=== PATIENT | male | born 1960 | race Caucasian/White ===

== ENCOUNTER 2019-12-13 07:16 | Day surgery (SDC) | payer OTHER, SELFPAY ==
[2019-12-13 08:16] LABS: Glucose Point of Care 159 (65-105)
== END 2019-12-13 09:48 | disposition home or self-care (01) ==
PROVIDERS: Visit Provider Surgery
DX: Z12.11 Encounter for screening for malignant neoplasm of colon (principal); D12.8 Benign neoplasm of rectum
CPT/HCPCS: 45380; 812; 88305; J2704; J7120

== ENCOUNTER 2020-08-25 09:43 | Outpatient (CLI) | payer OTHER, SELFPAY ==
--- NOTE | ~2020-08-25 | XR_ITS ---
XR lumbar spine 2-3V DATE: 08/25/2020 10:20 INDICATION: Low back pain for years. No known injury TECHNIQUE: AP, lateral, coned lateral lumbosacral views COMPARISON: 03/20/2018 lumbar spine FINDINGS: There is minimal dextroscoliosis of the lumbar spine. There is chronic mild anterior wedge compression fracture deformity of T12, also present on 03/20/2018 . There is severe degenerative disc disease at T12-L1, mildly severe degenerative disc disease at L1- 2, L2-3, mild degenerative disc disease at L3-4, severe degenerative disease at L4-5 and moderate deg enerative disc disease at L5-S1. No fracture or bone destruction is evident. The lumbar pedicles are intact. The sacroiliac joints dinorah ear normal. Severe osteoarthritic change at the right hip with prominent cystic changes of the femoral head and a cetabulum. IMPRESSION: Multilevel degenerative disc disease, most pronounced at L4-5, increased in severity sinc e 03/20/2018 Chronic compression fracture deformity of T12 Severe osteoarthritic change at the right hip joint Reviewed, dictated and finalized at location B. IMPRESSION: Multilevel degenerative disc disease, most pronounced at L4-5, incr eased in severity since 03/20/2018 Chronic compression fracture deformity of T12 Severe osteoarthritic change at the right hip joint
--- NOTE | ~2020-08-25 | XR_ITS ---
EXAMINATION: XR hip RT min 2V DATE: 08/25/2020 10:20 INDICATION: Right hip pain. TECHNIQUE: 3 views of right hip were obtained. COMPARISON: Right hip radiographs 03/20/2018 FINDINGS: Bone alignment is normal. No fracture. There is severe right hip osteoarthritis. There is a loose body in the right hip joint. IMPRESSION: 1. Severe right hip osteoarthritis. 2. Right hip joint loose body. Reviewed, dictated and finalized at location A.
[2020-08-25 09:57] LABS: Basophils Absolute Auto 0.01 K/mm3 (0.00-0.10); Basophils Percent Auto 0.2 % (0.0-1.0); Eosinophils Absolute Auto 0.09 K/mm3 (0.02-0.50); Eosinophils Percent Auto 1.5 % (1.0-6.0); Hemoglobin 15.3 g/dL (14.0-18.0); Immature Granulocyte Absolute 0.02 K/mm3 (0.00-0.00); Immature Granulocyte Percent A 0.3 % (0.0-0.0); Lymphocytes Percent Auto 25.9 % (18.0-42.0); Mean Corpuscular HGB Conc 34.8 g/dL (32.0-36.0); Mean Corpuscular Volume 94.8 fL (78.0-102.0); Monocytes Percent Auto 3.2 % (2.0-11.0); Neutrophils Absolute Auto 4.3 K/mm3 (1.7-7.2); Neutrophils Percent Auto 68.9 % (50.0-70.0); Platelet Count Result 240 K/mm3 (150-420); Red Blood Count 4.64 M/mm3 (4.70-6.10); Red Cell Distribution Width 12.9 % (11.6-14.4); White Blood Count 6.2 K/mm3 (4.8-10.8)
[2020-08-25 10:13] LABS: Hemoglobin A1C 5.8 % (<5.7)
[2020-08-25 11:01] LABS: Alanine Aminotransferase 17 U/L (16-63); Albumin Level 4.4 g/dL (3.4-5.0); Alkaline Phosphatase 84 U/L (46-116); Anion Gap 6 mmol/L (8-16); Aspartate Amino Transferase < 10 U/L (15-37); Bilirubin,Total 0.8 mg/dL (0.00-1.00); Blood Urea Nitrogen 10 mg/dL (7-18); Calcium 9.4 mg/dL (8.5-10.1); Carbon Dioxide 30 mmol/L (21-32); Chloride 101 mmol/L (98-108); Cholesterol 119 mg/dL (0-200); Estimated Glomerular Filt Rate > 60; Glucose 128 mg/dL (70-99); HDL Direct 58 mg/dL (40-60); LDL Cholesterol Calculated 49 mg/dL (<130); Osmolality Calculated 285 mOsm/kg (285-295); Potassium 4.5 mmol/L (3.5-5.1); Sodium 137 mmol/L (136-145); Total Protein 7.8 g/dL (6.4-8.2); Triglycerides 61 mg/dL (0-150)
== END 2020-08-25 09:44 | disposition home or self-care (01) ==
PROVIDERS: PCP Nurse Practitioner Family; Visit Provider Nurse Practitioner Family
DX: M25.551 Pain in right hip (principal); G89.29 Other chronic pain; M54.5 Low back pain; I10 Essential (primary) hypertension
CPT/HCPCS: 36415; 72100; 73502; 80053; 80061; 83036; 85025

== ENCOUNTER 2020-08-29 12:16 | Outpatient (CLI) | payer OTHER, SELFPAY ==
--- NOTE | ~2020-08-29 | CT_ITS ---
EXAMINATION:CT lung screening DATE: 08/29/2020 12:32 INDICATION: Personal history of tobacco dependence. Current smoker with 30 pack year history. TECHNIQUE: Computed tomography (CT) of the chest was performed without intravenous contrast. Automate d exposure control and iterative reconstruction technique were employed. The dose-length product (DLP ) was 169.59 mGy-cm. COMPARISON: Chest CT 10/30/2018 FINDINGS: There is mild emphysema. There are greater than 100 nodules scattered throughout the lungs bilaterally measuring up to 6 mm in right middle lobe. Most of the nodules are stable. The largest ne w nodule measures 4 mm. No pleural effusion. The heart size is normal. There are coronary artery calc ifications. No pericardial effusion. There is bilateral gynecomastia. There is a 2.3 cm mass in left adrenal gland measuring low-attenuation without change, consistent with an adenoma. There is severe t horacic spondylosis. IMPRESSION: 1. Lung-RADS category 3: Probably benign. Further evaluation is recommended with noncontrast low-dose chest CT in 6 months. Reviewed, dictated and finalized at location A. IMPRESSION: 1. Lung-RADS category 3: Probably benign. Further evaluation is recommended wit h noncontrast low-dose chest CT in 6 months.
== END 2020-08-29 12:17 | disposition home or self-care (01) ==
PROVIDERS: PCP Nurse Practitioner Family; Visit Provider Nurse Practitioner Family
DX: Z12.2 Encounter for screening for malignant neoplasm of respiratory organs (principal); Z87.891 Personal history of nicotine dependence
CPT/HCPCS: G0297

== ENCOUNTER 2021-02-19 10:38 | Outpatient (CLI) | payer OTHER, SELFPAY ==
[2021-02-19 11:03] LABS: Creatinine Urine 96.38 mg/dL (40-278); MALB Creatinine Ratio 13.4 mg/g (0-30); Microalbumin Urine Random < 13.0 mg/L
[2021-02-19 11:28] LABS: Alanine Aminotransferase 19 U/L (16-63); Albumin Level 4.1 g/dL (3.4-5.0); Alkaline Phosphatase 81 U/L (46-116); Anion Gap 9 mmol/L (8-16); Aspartate Amino Transferase < 10 U/L (15-37); Blood Urea Nitrogen 18 mg/dL (7-18); Carbon Dioxide 30 mmol/L (21-32); Chloride 97 mmol/L (98-108); Estimated Glomerular Filt Rate > 60; Glucose 125 mg/dL (70-99); Osmolality Calculated 284 mOsm/kg (285-295); Potassium 4.6 mmol/L (3.5-5.1); Sodium 136 mmol/L (136-145); Total Protein 7.5 g/dL (6.4-8.2)
[2021-02-19 11:36] LABS: Calcium 8.9 mg/dL (8.5-10.1)
== END 2021-02-19 10:39 | disposition home or self-care (01) ==
PROVIDERS: PCP Nurse Practitioner Family; Visit Provider Nurse Practitioner Family
DX: E11.9 Type 2 diabetes mellitus without complications (principal)
CPT/HCPCS: 36415; 80053; 82043; 83036

== ENCOUNTER 2021-09-14 11:10 | Outpatient (CLI) | payer OTHER, SELFPAY ==
--- NOTE | ~2021-09-14 | CT_ITS ---
EXAMINATION: CT lung screening DATE: 09/14/2021 13:44 INDICATION: History of tobacco dependence TECHNIQUE: Computed tomography (CT) of the chest was performed without intravenous contrast. The dose -length product was 149.82 mGy-cm. Automated exposure control and iterative reconstruction technique were employed. COMPARISON: CT dated 08/29/2020 FINDINGS: Heart size is normal. No significant pleural or pericardial effusion. No thoracic lymphaden opathy. There is gynecomastia. Stable 2.7 cm left adrenal adenoma. There is atherosclerosis. Innumera ble bilateral pulmonary nodules which measuring 6 mm or less, unchanged. No significant change from p rior study. There is mild emphysema. No pneumothorax. IMPRESSION: 1. Lung-RADS category 2: Benign appearance or behavior. Continue annual screening with noncontrast lo w-dose chest CT in 12 months. Reviewed, dictated and finalized at location B. IMPRESSION: 1. Lung-RADS category 2: Benign appearance or behavior. Continue annual screeni ng with noncontrast low-dose chest CT in 12 months.
== END 2021-09-14 11:11 | disposition home or self-care (01) ==
PROVIDERS: PCP Nurse Practitioner Family; Visit Provider Family Medicine
DX: Z12.2 Encounter for screening for malignant neoplasm of respiratory organs (principal); Z87.891 Personal history of nicotine dependence
CPT/HCPCS: 71271

== ENCOUNTER 2022-12-30 08:04 | Outpatient (CLI) | payer OTHER, SELFPAY ==
[2022-12-30 08:21] LABS: Basophils Absolute Auto 0.01 K/mm3 (0.00-0.10); Basophils Percent Auto 0.2 % (0.0-1.0); Eosinophils Absolute Auto 0.11 K/mm3 (0.02-0.50); Eosinophils Percent Auto 1.8 % (1.0-6.0); Hematocrit 44.1 % (40.0-54.0); Hemoglobin 15.5 g/dL (14.0-18.0); Immature Granulocyte Absolute 0.02 K/mm3 (0.00-0.00); Immature Granulocyte Percent A 0.3 % (0.0-0.0); Lymphocytes Absolute Auto 1.86 K/mm3 (1.10-4.50); Lymphocytes Percent Auto 30.1 % (18.0-42.0); Mean Corpuscular HGB Conc 35.1 g/dL (32.0-36.0); Mean Corpuscular Hemoglobin 33.2 pg (27.0-31.0); Mean Corpuscular Volume 94.4 fL (78.0-102.0); Mean Platelet Volume 9.4 fl (8.7-11.0); Monocytes Percent Auto 4.9 % (2.0-11.0); Neutrophils Absolute Auto 3.9 K/mm3 (1.7-7.2); Neutrophils Percent Auto 62.7 % (50.0-70.0); Platelet Count Result 235 K/mm3 (150-420); Red Blood Count 4.67 M/mm3 (4.70-6.10); Red Cell Distribution Width 12.3 % (11.6-14.4); White Blood Count 6.2 K/mm3 (4.8-10.8)
[2022-12-30 08:33] LABS: Hemoglobin A1C 5.9 % (<5.7)
[2022-12-30 08:57] LABS: Alanine Aminotransferase 19 U/L (16-63); Albumin Level 3.9 g/dL (3.4-5.0); Alkaline Phosphatase 81 U/L (46-116); Anion Gap 7 mmol/L (8-16); Aspartate Amino Transferase < 10 U/L (15-37); Blood Urea Nitrogen 15 mg/dL (7-18); Calcium 9.1 mg/dL (8.5-10.1); Carbon Dioxide 31 mmol/L (21-32); Chloride 99 mmol/L (98-108); Cholesterol 110 mg/dL (0-200); Estimated Glomerular Filt Rate > 60; Glucose 143 mg/dL (70-99); HDL Direct 65 mg/dL (40-60); LDL Cholesterol Calculated 40 mg/dL (<130); Osmolality Calculated 286 mOsm/kg (285-295); Potassium 4.4 mmol/L (3.5-5.1); Sodium 137 mmol/L (136-145); Total Protein 7.1 g/dL (6.4-8.2); Triglycerides 24 mg/dL (0-150)
== END 2022-12-30 08:05 | disposition home or self-care (01) ==
PROVIDERS: PCP Nurse Practitioner Family; Visit Provider Nurse Practitioner Family
DX: E78.5 Hyperlipidemia, unspecified (principal); I10 Essential (primary) hypertension; E11.9 Type 2 diabetes mellitus without complications
CPT/HCPCS: 36415; 80053; 80061; 83036; 85025

== ENCOUNTER 2023-06-20 10:22 | Outpatient (CLI) | payer OTHER, SELFPAY ==
--- NOTE | ~2023-06-20 | CT_ITS ---
CT Scan of the Chest without Contrast: Clinical Indication: Lung cancer screening, smoking history Technique: Contiguous sections were acquired throughout the chest without intravenous contrast. Dose reduction technique was used on this scan by utilizing automated exposure control and iterative recon struction technique. The dose-length product (DLP) was 162.56 mGy-cm. COMPARISON: 09/14/2021 Findings: There is no evidence of any significant mediastinal, hilar or axillary lymphadenopathy. Coronary stefanie ry calcifications are present. There is no evidence of pleural or pericardial effusion. There is mild emphysema with probable numerous tiny, peripheral pulmonary nodules present, stable fro m prior exam. Images through the upper abdomen reveal stable left adrenal adenoma. There are nondisplaced fractures of the posterolateral left 10th and 11th ribs. Impression: Lung RADS 2: Benign appearance. 12 month follow-up screening CT advised. Nondisplaced fractures of the posterolateral left 10th and 11th ribs. Reviewed, dictated and finalized at location . Impression: Lung RADS 2: Benign appearance. 12 month follow-up screening CT advised. Nondisplaced fractures of the posterolateral left 10th and 11th ribs.
== END 2023-06-20 10:23 | disposition home or self-care (01) ==
LOC: CHSIMG 10:23
PROVIDERS: PCP Nurse Practitioner Family; Visit Provider Nurse Practitioner Family
DX: R91.8 Other nonspecific abnormal finding of lung field (principal); S22.42XA Multiple fractures of ribs, left side, initial encounter for closed fracture; R07.81 Pleurodynia; Z87.891 Personal history of nicotine dependence
CPT/HCPCS: 71271

== ENCOUNTER 2023-07-15 22:47 | Emergency (ER) | payer OTHER, SELFPAY ==
--- NOTE | ~2023-07-15 | CT_ITS ---
EXAMINATION: CTA chest PE protocol DATE: 07/16/2023 00:22 INDICATION: Shortness of breath. TECHNIQUE: Computed tomography angiography (CTA) of the chest was performed with 100 mL Omnipaque-350 intravenous contrast timed to evaluate the pulmonary arteries. Coronal maximum intensity projection 3D-reconstructions were created by the technologist. Automated exposure control and iterative reconst ruction technique were employed. The dose-length product was 678.78 mGy-cm. COMPARISON: Chest CT 06/20/2023, 09/14/2021 FINDINGS: There is mild emphysema. There are innumerable chronic nodules in the lungs measuring up to 3 mm with a lower lung predominance, likely benign. No pleural effusion. The heart size is normal. N o pericardial effusion. There are coronary artery calcifications. There is no pulmonary embolus. Ther e is a chronic 2.5 cm mass in left adrenal gland measuring soft tissue attenuation, consistent with a n adenoma. There is diffuse osteopenia. Again seen are subacute fractures of left 9th and 10th ribs. There is severe cervical and thoracic spondylosis. There is mild chronic anterior wedging of multiple vertebral bodies. IMPRESSION: 1. No pulmonary embolus. 2. Mild emphysema. Reviewed, dictated and finalized at location A.
--- NOTE | ~2023-07-15 | XR_ITS ---
EXAMINATION: XR chest 2V Exam Date/Time: 07/15/2023 22:50 CDT HISTORY: dyspnea Comparison: None. RESULT: Lines, tubes, and devices: None. Lungs and pleura: Diffuse mild reticular opacities. Cardiomediastinal silhouette: Stable. Other: No acute osseous or upper abdominal finding. IMPRESSION: Mild interstitial edema. Reviewed, dictated and finalized at location K. IMPRESSION: Mild interstitial edema.
[2023-07-15 22:47] VITALS: BP 134/84; PULSE 84; RESP 16; TEMP 36.4; O2SAT 97
[2023-07-15 22:50] VITALS: O2SAT 95
--- NOTE | 2023-07-15 22:50 | ED.SOB ---
HPI - SOB/Dyspnea General Chief Complaint: Shortness of Breath/Dyspnea Stated Complaint: SOB Time Seen by Provider: 07/15/23 22:50 Source: patient, family and RN notes reviewed Mode of arrival: ambulatory Limitations: no limitations History of Present Illness MD elicited complaint: shortness of breath Onset (ago): week(s) (1) Timing: intermittent ( Got worse again the last hour) Severity: moderate Exacerbating factors: deep breaths Relieving factors: nothing Associated symptoms: other ( diaphoresis) Treatment prior to arrival: none Related Data Home oxygen amount: none Allergies Allergy/AdvReac Type Severity Reaction Status Date / Time No Known Allergies Allergy Verified 06/09/23 11:36 Review of Systems Review of Systems: All systems reviewed & are unremarkable except as noted in HPI and below Constitutional: Constitutional: Denies chills and Denies fever(s) Cardiovascular: Cardiovascular: Denies chest pain Respiratory: Respiratory: Denies cough and Denies wheezing Gastrointestinal: Gastrointestinal: Denies nausea and Denies vomiting PMFSH Past Medical History Medical History (Updated 07/16/23 @ 02:40 by Shaheen Brothers MD) DM2 (diabetes mellitus, type 2) Encounter for screening for depression Hypertension Nicotine dependence Overweight Surgical History Surgical History No history of previous surgery Family History Family History Mother Family history of type 2 diabetes mellitus Father , Age 45 CAD (coronary artery disease) Social History Social History Smoking packs per day: 1 Smoking cigarettes per day: 20.0 Years smoked: 30 Smoking pack-years: 30.00 Smoking status: Current every day smoker Tobacco type: cigarettes Concerned About Future Housing: Decline to Answer Difficulty Paying Gas/Electric Bills: Decline to Answer Difficulty Paying for Meds: Decline to Answer Currently Unemployed: Decline to Answer Education: Decline to Answer Living arrangements: with family Additional living arrangements comments: Exam Const: General: healthy appearing, no acute distress and alert Nutritional Appearance: well nourished Orientation/consciousness: patient oriented x3 Limitations: no limitations HENMT: Head: normal to inspection Ears: external ears normal Face/Nose/Sinus: Normal external nose present Face and sinus: normal facial exam Mouth: Yes moist mucous membranes Eyes: Conjunctivae: conjunctivae normal Pupils: Equal, round and reactive pupils present EOM: EOMs intact bilaterally Neck: Neck: normal visual inspection Resp: Effort & Inspection: normal respiratory effort Auscultation: clear to auscultation bilaterally Cardio: Rate: regular rate Rhythm: regular rhythm GI: GI Palp: Yes Soft to palpation and No Tenderness to palpation present (GI) Auscultation: normal bowel sounds Back/Spine/Pelvis: Cervical Spine: cervical ROM normal Thoracic/Lumbar Spine: thoraco-lumbar ROM normal Skin: General skin exam: normal color Rashes: no rashes Neuro: General: patient oriented x3, moves all extremities, no focal motor deficits and CN's II-XI intact bilaterally Speech: normal speech Gait exam (Neuro): Normal gait present Extrem: General: normal to inspection and no clubbing, cyanosis or edema Psych: Mental Status: mental status grossly normal Affect: normal affect Attitude: cooperative Course Course Emergency Course: patient given Solu-Medrol 125 mg IV. He is asked to follow up with his primary care physician for consultation with vascular surgery and Cardiology. Vital Signs Vital signs: Vital Signs Temperature 36.4 C 07/15/23 22:47 Pulse Rate 84 07/15/23 22:47 Respiratory Rate 16 07/15/23 22:47 Blood Pressure 134/84 07/15/23 22:47 Pulse Oximetry 97
--- NOTE | 2023-07-15 22:52 | ECG_ITS ---
Measurements Intervals Epsom Rate: 86 P: 31 DE: 151 QRS: -67 QRSD: 123 T: 30 QT: 384 QTc: 460 Interpretive Statements SINUS RHYTHM RIGHT BUNDLE BRANCH BLOCK [120+ ms QRS DURATION, UPRIGHT V1, 40+ ms S IN I/aVL/V4/V5/V6] LEFT ANTERIOR FASCICULAR BLOCK [QRS AXIS <= -45, QR IN I, RS IN II] ABNORMAL ECG NO PREVIOUS ECG AVAILABLE FOR COMPARISON Electronically Signed On 07-16-2023 7:38:33 CDT by Ryan Rhodes M.D.
[2023-07-15 23:15] LABS: Basophils Absolute Auto 0.01 K/mm3 (0.00-0.10); Basophils Percent Auto 0.1 % (0.0-1.0); Eosinophils Absolute Auto 0.14 K/mm3 (0.02-0.50); Hematocrit 38.5 % (40.0-54.0); Hemoglobin 13.7 g/dL (14.0-18.0); Immature Granulocyte Absolute 0.03 K/mm3 (0.00-0.00); Immature Granulocyte Percent A 0.4 % (0.0-0.0); Lymphocytes Absolute Auto 2.26 K/mm3 (1.10-4.50); Lymphocytes Percent Auto 31.7 % (18.0-42.0); Mean Corpuscular HGB Conc 35.6 g/dL (32.0-36.0); Mean Corpuscular Hemoglobin 33.7 pg (27.0-31.0); Mean Corpuscular Volume 94.8 fL (78.0-102.0); Mean Platelet Volume 9.2 fl (8.7-11.0); Monocytes Percent Auto 5.6 % (2.0-11.0); Neutrophils Absolute Auto 4.3 K/mm3 (1.7-7.2); Neutrophils Percent Auto 60.2 % (50.0-70.0); Platelet Count Result 236 K/mm3 (150-420); Red Blood Count 4.06 M/mm3 (4.70-6.10); Red Cell Distribution Width 12.5 % (11.6-14.4); White Blood Count 7.1 K/mm3 (4.8-10.8)
[2023-07-15 23:30] VITALS: BP 112/68; PULSE 80; RESP 18; O2SAT 96
[2023-07-15 23:32] LABS: Partial Thromboplastin Time 27.3 SEC (23.90-30.70); Prothrombin Time 11.3 Seconds (9.50-12.10)
[2023-07-15 23:36] LABS: D Dimer 0.92 mg/L (0.19-0.50)
[2023-07-15 23:40] LABS: Alanine Aminotransferase 11 U/L (16-63); Albumin Level 3.8 g/dL (3.4-5.0); Alkaline Phosphatase 97 U/L (46-116); Anion Gap 9 mmol/L (8-16); Bilirubin,Total 0.7 mg/dL (0.00-1.00); Blood Urea Nitrogen 19 mg/dL (7-18); Carbon Dioxide 29 mmol/L (21-32); Chloride 97 mmol/L (98-108); Estimated CRCL calculation 63 ml/min; Estimated Glomerular Filt Rate > 60; Glucose 218 mg/dL (70-99); Magnesium 1.8 mg/dL (1.8-2.4); NT Pro B Type Natriuretic Pept 226 pg/mL (0-125); Osmolality Calculated 289 mOsm/kg (285-295); Potassium 3.9 mmol/L (3.5-5.1); Sodium 135 mmol/L (136-145); Total Protein 7.1 g/dL (6.4-8.2); Troponin I 8.9 ng/L (0.00-60.4)
[2023-07-15 23:43] LABS: Aspartate Amino Transferase < 3 U/L (15-37)
--- NOTE | 2023-07-15 23:47 | PC.NURSE ---
POSITIVE D-DIME 0.92 PER LAB. PHYSICIAN MADE AWARE, ORDERS TO FOLLOW. CRM SPECIALIST UPDATED PT AND SPOUSE REGARDING RESULT AND PLAN OF CARE. PT AND SPOUSE VERBALIZED UNDERSTANDING.
--- NOTE | 2023-07-16 00:04 | PC.NURSE ---
PT TRANSPORTED TO IMAGING VIA [facility]RETCHER, ESCORTED BY ISRAEL EID
--- NOTE | 2023-07-16 00:17 | PC.NURSE ---
0017-PT RETURNS FROM IMAGING VIA HOSPITAL STRETCHER, ESCORTED BY SURVEYOR'S ASSISTANT.
[2023-07-16 00:32] VITALS: BP 110/64; PULSE 76; RESP 20; O2SAT 94
[2023-07-16 01:03] VITALS: BP 119/68; PULSE 74; RESP 16; O2SAT 96
[2023-07-16 01:32] VITALS: BP 113/75; PULSE 77; O2SAT 94
[2023-07-16 02:00] VITALS: BP 120/71; PULSE 72; RESP 16; O2SAT 97
[2023-07-16 02:37] VITALS: BP 130/77; PULSE 75; RESP 16; O2SAT 97
[2023-07-16] MEDS: methylPREDNISolone SOD SUCC 125 MG VIAL IV PUSH (02:50)
== END 2023-07-16 02:53 | disposition home or self-care (01) ==
PROVIDERS: Emergency Provider Emergency Medicine; PCP Nurse Practitioner Family
DX: J44.1 Chronic obstructive pulmonary disease with (acute) exacerbation (principal); I44.4 Left anterior fascicular block; I71.21 Aneurysm of the ascending aorta, without rupture; I10 Essential (primary) hypertension; E11.9 Type 2 diabetes mellitus without complications; F17.210 Nicotine dependence, cigarettes, uncomplicated; Z79.84 Long term (current) use of oral hypoglycemic drugs
CPT/HCPCS: 36415; 71046; 71275; 80053; 83735; 83880; 84484; 85025; 85380; 85610; 85730; 93005; 96374; 99284; J2930; Q9967

== ENCOUNTER 2023-08-12 07:25 | Outpatient (CLI) | payer OTHER, SELFPAY ==
[2023-08-12 08:12] LABS: Cholesterol 142 mg/dL (0-200); HDL Direct 73 mg/dL (40-60); LDL Cholesterol Calculated 58 mg/dL (<130); Triglycerides 56 mg/dL (0-150)
== END 2023-08-12 07:26 | disposition home or self-care (01) ==
LOC: CHSLAB 07:26
PROVIDERS: PCP Nurse Practitioner Family; Visit Provider Internal Medicine Cardiovascular Disease
DX: I10 Essential (primary) hypertension (principal)
CPT/HCPCS: 36415; 80061

== ENCOUNTER 2023-09-06 08:30 | Outpatient (CLI) | payer OTHER, SELFPAY ==
[2023-09-06 08:47] LABS: Basophils Absolute Auto 0.02 K/mm3 (0.00-0.10); Basophils Percent Auto 0.4 % (0.0-1.0); Eosinophils Absolute Auto 0.09 K/mm3 (0.02-0.50); Eosinophils Percent Auto 1.9 % (1.0-6.0); Hematocrit 38.2 % (40.0-54.0); Hemoglobin 13.8 g/dL (14.0-18.0); Immature Granulocyte Absolute 0.01 K/mm3 (0.00-0.00); Immature Granulocyte Percent A 0.2 % (0.0-0.0); Lymphocytes Absolute Auto 1.52 K/mm3 (1.10-4.50); Mean Corpuscular HGB Conc 36.1 g/dL (32.0-36.0); Mean Corpuscular Hemoglobin 34.5 pg (27.0-31.0); Mean Corpuscular Volume 95.5 fL (78.0-102.0); Mean Platelet Volume 9.4 fl (8.7-11.0); Monocytes Absolute Auto 0.21 K/mm3 (0.10-0.90); Monocytes Percent Auto 4.4 % (2.0-11.0); Neutrophils Absolute Auto 2.9 K/mm3 (1.7-7.2); Neutrophils Percent Auto 61.1 % (50.0-70.0); Platelet Count Result 228 K/mm3 (150-420); Red Cell Distribution Width 12.8 % (11.6-14.4); White Blood Count 4.8 K/mm3 (4.8-10.8)
[2023-09-06 08:55] LABS: Appearance Urine Clear (Clear); Bilirubin Urine Negative (Negative); Blood Urine Trace-Intact (Negative); Color Urine Yellow (Yellow); Glucose Urine UA Negative (Negative); Ketones Urine Negative (Negative); Leukocyte Esterase Ur Negative LEU/UL (Negative); Nitrate Urine Negative (Negative); Protein Urine Negative (Negative); Specific Grav Ur 1.025 (1.010-1.020); Urobilinogen Urine 0.2 mg/dL (0.2-1.0)
[2023-09-06 08:56] LABS: Hemoglobin A1C 6.8 % (<5.7)
[2023-09-06 09:01] LABS: Add Urine Microscopic? YES; Bacteria Urine Trace /hpf; RBC Urine 0-2 /hpf (0-2); WBC Urine None seen /hpf (0-3)
[2023-09-06 09:02] LABS: Partial Thromboplastin Time 27.3 SEC (23.90-30.70); Prothrombin Time 11.3 Seconds (9.50-12.10)
[2023-09-06 10:38] LABS: Alanine Aminotransferase 17 U/L (16-63); Albumin Level 4.1 g/dL (3.4-5.0); Alkaline Phosphatase 90 U/L (46-116); Anion Gap 10 mmol/L (8-16); Aspartate Amino Transferase < 10 U/L (15-37); Bilirubin,Total 0.9 mg/dL (0.00-1.00); Blood Urea Nitrogen 18 mg/dL (7-18); Calcium 9.5 mg/dL (8.5-10.1); Carbon Dioxide 27 mmol/L (21-32); Chloride 98 mmol/L (98-108); Estimated Glomerular Filt Rate > 60; Glucose 189 mg/dL (70-99); Osmolality Calculated 286 mOsm/kg (285-295); Potassium 4.2 mmol/L (3.5-5.1); Sodium 135 mmol/L (136-145); Total Protein 7.2 g/dL (6.4-8.2)
== END 2023-09-06 08:31 | disposition home or self-care (01) ==
LOC: CHSLAB 08:33
PROVIDERS: PCP Nurse Practitioner Family
DX: Z01.818 Encounter for other preprocedural examination (principal); R39.9 Unspecified symptoms and signs involving the genitourinary system
CPT/HCPCS: 36415; 80053; 81001; 83036; 85025; 85610; 85730; 87081

== ENCOUNTER 2023-09-12 09:19 | Outpatient (CLI) | payer OTHER, SELFPAY ==
--- NOTE | 2023-09-12 09:27 | EST_ITS ---
Patient Info Name: Eric Sarmiento Age: 63 years : 1960 Gender: Male Ht: 70 in Wt: 202 lbs BSA: 2.15 m2 HR: 73 bpm BP: 127 / 81 mmHg Heart Rhythm: Sinus Rhythm Technical Quality: Good Exam Date: 09/12/2023 11:59 AM Exam Location: [facility] Patient Status: Outpatient Admit Date: 09/12/2023 Staff Ordering Physician: Hema Norris DO Attending Provider: Hema Norris DO Exam Type: CA stress reina w NM Study Info A regadenoson stress test was performed. History/Risk Factors Hypertension: Yes Chronic Lung Disease: Yes Diabetes Mellitus: Yes Tobacco Use: Current - Every Day If Any Current, Tobacco Type: Cigarettes Family History: Coronary Artery Disease Summary 1. 1. Negative lexiscan stress test for ischemic ST changes by ECG criteria. 2. 2. Stable hemodynamics throughout the test. 3. 3. Nuclear scan to follow and will be reported separately. Please correlate with it. Protocol: LEXISCAN Stress ECG Details Stage: REST Duration (min): 1 min : 17 sec HR (bpm): 73 SBP (mmHg): 127 DBP (mmHg): 81 Stage: REST Duration (min): 1 min : 56 sec HR (bpm): 75 SBP (mmHg): 127 DBP (mmHg): 81 Stage: STAGE 1 Duration (min): 0 min : 12 sec HR (bpm): 74 SBP (mmHg): 127 DBP (mmHg): 81 Stage: RECOVERY Duration (min): 0 min : 47 sec HR (bpm): 94 SBP (mmHg): 127 DBP (mmHg): 81 Stage: RECOVERY Duration (min): 1 min : 47 sec HR (bpm): 97 SBP (mmHg): 147 DBP (mmHg): 85 Stage: RECOVERY Duration (min): 2 min : 47 sec HR (bpm): 91 SBP (mmHg): 140 DBP (mmHg): 97 Stage: RECOVERY Duration (min): 3 min : 47 sec HR (bpm): 85 SBP (mmHg): 140 DBP (mmHg): 97 Stage: RECOVERY Duration (min): 4 min : 47 sec HR (bpm): 92 SBP (mmHg): 108 DBP (mmHg): 80 Stage: RECOVERY Duration (min): 5 min : 47 sec HR (bpm): 83 SBP (mmHg): 108 DBP (mmHg): 80 Stage: RECOVERY Duration (min): 6 min : 31 sec HR (bpm): 87 SBP (mmHg): 119 DBP (mmHg): 84 Rest HR: 75 bpm Peak HR: 97 bpm Rest Sys BP: 127 mmHg Peak Sys BP: 147 mmHg Max Pred HR: 156 bpm % Max Pred HR: 62 % Target HR: 133 bpm Max RPP: 14,259 bpm*mmHg BP Response: Normal blood pressure response Termination Reason: Completed Protocol Cardiac Symptoms: None Total Time: 0 min : 12 sec Rest Harrell BP: 81 mmHg Peak Harrell BP: 85 mmHg Total Dose: 0.4 mg Resting ECG Sinus rhythm with IVCD and ST abnormality, particularly in inf leads. Occasional PVCs. Stress ECG No abnormal ST/T wave changes. Arrhythmias Occasional PVCs. Report Signatures
--- NOTE | 2023-09-12 15:08 | WPDCARIOSTRE ---
Nuclear Stress Test INDICATIONS Indications: Dyspnea PROCEDURE Procedure Performed: Myocardial Perf Spect-Multi Procedure: Patient underwent a lexiscan stress test and immediately was injected with 26.6 mCi of cardiolyte. Multiple tomographic images were obtained. These are of good quality. There is evidence of large size, moderate severity basal to apical inferior perfusion defect during stress imaging. A separate resting images were obtained after patient was injected with 8.6 mCi of cardiolyte. Multiple tomographic images were obtained. These are of good quality. There is no evidence perfusion defects with rest imaging. CONCLUSION Conclusion: 1. Abnormal myocardial perfusion imaging demonstrating large size inferior perfusion defect during stress imaging consistent with reversible ischemia. 2. Left ventriculogram demonstrates normal measured ejection fraction of 67% with no wall motion abnormalities. 3. TID score 1.14 is not elevated.
== END 2023-09-12 09:20 | disposition home or self-care (01) ==
LOC: CHSCARD 09:20
PROVIDERS: PCP Nurse Practitioner Family; Visit Provider Internal Medicine Cardiovascular Disease
DX: R06.09 Other forms of dyspnea (principal); R94.39 Abnormal result of other cardiovascular function study
CPT/HCPCS: 78452; 93017; A9502; J2785

== ENCOUNTER 2023-10-04 02:45 | Day surgery (SDC) | payer OTHER, SELFPAY ==
[2023-10-03 16:45] VITALS: BMI 29.7
[2023-10-04] VITALS (23 sets, daily range): BP systolic 98–145; BP diastolic 67–110; PULSE 76–93; RESP 14–22; TEMP 36; O2SAT 93–97; BMI 28.0
[2023-10-04 07:39] LABS: Basophils Percent Auto 0.1 % (0.2-1.2); Eosinophils Percent Auto 0.3 % (0-4.4); Hematocrit 41.6 % (42.0-52.0); Hemoglobin 14.7 g/dL (14.0-18.0); Immature Granulocyte Absolute 0.04 K/mm3 (0.00-0.031); Immature Granulocyte Percent A 0.4 % (0-0.5); Lymphocytes Absolute Auto 2.58 K/mm3 (0.9-3.2); Lymphocytes Percent Auto 24.8 % (18.3-44.2); Mean Corpuscular HGB Conc 35.3 g/dl (32-36); Mean Corpuscular Hemoglobin 33.3 pg (26-34); Mean Corpuscular Volume 94.1 fl (80-100); Mean Platelet Volume 9.8 fl (7.4-10.4); Monocytes Absolute Auto 0.5 K/mm3 (0.1-0.6); Monocytes Percent Auto 4.5 % (2.6-8.5); Neutrophils Absolute Auto 7.3 K/mm3 (1.3-6.7); Neutrophils Percent Auto 69.9 % (45.5-73.1); Platelet Count Result 272 k/mm3 (150-375); Red Blood Count 4.42 M/mm3 (4.6-6.20); Red Cell Distribution Width 12.5 % (11.5-14.5); White Blood Count 10.4 K/mm3 (4.5-10.0)
[2023-10-04 07:45] LABS: Anion Gap 9 mmol/L (8-16); Blood Urea Nitrogen 20 mg/dL (9-20); Calcium 9.6 mg/dL (8.4-10.2); Carbon Dioxide 29 mmol/L (22-30); Chloride 92 mmol/L (98-107); Estimated CRCL calculation 84 ml/min; Estimated Glomerular Filt Rate > 60; Glucose 229 mg/dL (65-110); Potassium 4.1 mmol/L (3.4-5.0); Sodium 130 mmol/L (137-145)
--- NOTE | 2023-10-04 08:51 | WPDHPUPDATE1 ---
History and Physical Update Update Date/Time: 10/04/23 08:51 History and Physical has been reviewed, including an updated exam of the patient. There are NO changes in the patient's condition. Risks, benefits, and alternatives have been discussed and questions answered. Patient agrees to proceed with procedure.
--- NOTE | 2023-10-04 08:52 | WPDMODSED ---
Moderate Sedation Note-Pt Data Patient Data Diagnosis: Abnormal stress test Present Complaint: Abnormal stress test Procedure to be performed/Plan: Coronary angiography, left heart cath, +/- PCI Allergies Allergy/AdvReac Type Severity Reaction Status Date / Time No Known Allergies Allergy Verified 10/04/23 07:24 Home Medications Medication Instructions Recorded Confirmed Type aspirin 81 mg tablet,delayed 81 mg PO DAILY 09/15/23 10/04/23 History release pravastatin 10 mg tablet 10 mg PO DAILY #30 tabs 09/15/23 10/03/23 Rx albuterol sulfate 90 mcg/actuation 2 puff inhalation QID PRN 09/28/23 10/03/23 Rx aerosol inhaler (Proventil HFA) shortness of breath or wheezing #6.7 grams cyclobenzaprine 10 mg tablet 10 mg PO .HS PRN muscle spasm #30 09/28/23 10/03/23 Rx tabs chlorthalidone 25 mg tablet 25 mg PO DAILY 10/03/23 10/03/23 History lisinopril 40 mg tablet 40 mg PO DAILY 10/03/23 10/04/23 History meloxicam 15 mg tablet 15 mg PO DAILY 10/03/23 10/03/23 History metformin 1,000 mg tablet 500 mg PO BID 10/03/23 10/03/23 History Current Medications: Active Medications Sodium Chloride (Normal Saline Iv) 500 mls @ 100 mls/hr IV CONT .Q5H KALI Sedation/Anesthesia: No previous sedation/anesthesia problems (including family history). [facility] Past Medical History Medical History DM2 (diabetes mellitus, type 2) Encounter for screening for depression Hypertension Nicotine dependence Overweight Surgical History Surgical History No history of previous surgery Family History Family History Mother Family history of type 2 diabetes mellitus Father , Age 45 CAD (coronary artery disease) Social History Social History Smoking packs per day: 1 Smoking cigarettes per day: 20.0 Years smoked: 30 Smoking pack-years: 30.00 Smoking status: Former smoker Tobacco type: cigarettes Second hand tobacco smoke exposure: No Smoking end date: 07/30/23 Alcohol intake: current Drinks per week: 14 Substance use: never Substance use type: does not use Lack of Transportation: No Lack of Food: Never True Current Housing: I Have Housing Concerned About Future Housing: No Difficulty Paying Gas/Electric Bills: No Difficulty Paying for Meds: No Currently Unemployed: No Education: High School Diploma/GED Difficulty w/ Childcare or Family Care: No Living arrangements: with family Additional living arrangements comments: Spiritual care concerns: No Mod Sed Physical Exam Physical Exam Pre Procedural Exam: Normal: Appearance, Lungs, Heart Rate, Heart Rhythm, Neuro Exam, Abdomen, Extremities and Skin Hours since solid foods: 12 Hours since liquid intake: 8 Mallampati Classification: class III Internal Medicine - PN: Obj Da Vital Signs Vital Signs: Vital Signs - 24 hr 10/04/23 07:25 Temperature 36.0 C L Pulse Rate 93 Respiratory Rate 14 Blood Pressure 145/94 H Pulse Oximetry 96 Oxygen Delivery Room Air Meds/Results Medications: Active Medications Generic Name Dose Route Start Last Admin Trade Name Freq PRN Reason Stop Dose Admin Sodium Chloride 500 mls @ 100 mls/hr 10/04/23 07:00 Normal Saline Iv IV CONT .Q5H KALI Labs 10/04/23 07:29 10/04/23 07:29 Labs: Laboratory Results - last 24 hr 10/04/23 07:29 WBC 10.4 H RBC 4.42 L Hgb 14.7 Hct 41.6 L MCV 94.1 MCH 33.3 MCHC 35.3 RDW 12.5 Plt Count 272 MPV 9.8 Immature Gran % (Auto) 0.4 Neut % (Auto) 69.9 Lymph % (Auto) 24.8 [place] % (Auto) 4.5 Eos % (Auto) 0.3 Baso % (Auto) 0.1 L Lymph # (Auto) 2.58 [place] # (Auto) 0.5 Eos # (Auto) 0.0 Baso # (Auto) 0.0 Abs Immat Gran (auto) 0.04 H Absolute Neuts (auto) 7.3 H
--- NOTE | 2023-10-04 08:52 | WPDCARDPROC ---
Cardiac Cath Procedure Note Date of procedure:: 10/04/23 Performing physician:: CATHETERIZATION LABORATORY REPORT Procedure Date: 10/04/2023 Cook Helper Juice: Alecia Hernandez M.D., [facility]? Referring Physician: Dr. Norris ? Anesthesia: Versed and Fentanyl were ordered and given in my presence at 09:04, procedure ended at 09:29. Supervision of nurse monitored moderate sedation with Versed and Fentanyl was provided for 25 minutes. Total of Versed 2mg and Fentanyl 50mcg were administered by the Program Director RN Priyanka Eli. Pre-op Diagnosis: Coronary artery disease Post-op Diagnosis: 1. Non-obstructive coronary arteries with mild coronary disease 2. Mid LAD myocardial bridge 3. Left ventricular end-diastolic pressure of 15mmHg Procedure(s): Left heart catheterization with coronary angiography Access Site: Right radial artery Brief History and Clinical Indications: Patient is a 63 year old male who is referred for [facility] for abnormal stress test. All risks, benefits and alternatives to left heart catheterization with or without percutaneous coronary intervention was discussed at length with the patient. Risk of complications including but not limited to bleeding, infection, arrhythmia, stroke, worsening kidney function, blood loss, groin hematoma, limb loss, emergency coronary artery bypass grafting, and even were discussed with the patient and all questions were answered. The patient understood and wished to proceed. Time out called, patient name, date of , medical record number, allergies, procedure performed, identify Cook Helper Juice, patient and staff member concurred with accurate data, procedure carried on. Findings: LEFT HEART CATHETERIZATION FINDINGS: 1. Left main: The left main coronary artery is widely patent without any significant obstructive disease. 2. Left anterior descending: Calcifications seen in the proximal LAD. Large caliber vessel that tapers to small caliber distally. The proximal LAD has mild disease. The mid LAD after the bifurcation of the first diagonal branch has mild disease. There is a myocardial bridge in the mid LAD. The distal LAD has luminal irregularities. The first diagonal branch has luminal irregularities. 3. Left circumflex: The left circumflex artery and the main marginal branches have mild luminal irregularities without any significant obstructive angiographic disease. 4. Right coronary artery: Large caliber vessel. Tortuous vessel. The RCA has mild luminal irregularities without any significant obstructive angiographic disease. The RCA is the dominant vessel. 5. Left ventricle: A. End-diastolic pressure 15mmHg. B. LV gram deferred. C. No significant gradient across aortic valve on catheter pullback. Description of Procedure: Informed consent signed and placed in the chart. Patient transferred to semiconductor lab technician room. Prepped and draped in usual sterile fashion. 2% lidocaine injected subcutaneously in right wrist area. 22-gauge venipuncture catheter used to access the right radial artery under ultrasound guidance. 6-FR slender sheath placed in right radial artery. Nitroglycerine and Verapamil were given intraarterial through the sheath. Versacore wire advanced under fluoroscopy 5F Tig 4 diagnostic catheter engaged Left Main Coronary Artery. 5F FR 4 diagnostic catheter engaged Right Coronary Artery Multiple orthogonal angiogram obtained and reviewed 5F Pigtail diagnostic catheter crossed aortic valve to obtain LVEDP, LV angiogram deferred. Hemostasis was achieved by application of TR band. ? Assessment: 1. Non-obstructive coronary arteries with mild coronary disease 2. Mid LAD myocardial bridge 3. Left ventricular end-diastolic pressure of 15mmHg Post Operative Condition: Stable No significant blood loss Disposition: Home Plan: The patient will be monitored in the recovery area. Discharge home after post cath bed rest is completed. The above findings were discussed with kamryn
== END 2023-10-04 15:10 | disposition home or self-care (01) ==
PROVIDERS: PCP Nurse Practitioner Family; Visit Provider Internal Medicine
PROC: 4A023N7 Measurement of Cardiac Sampling and Pressure, Left Heart, Percutaneous Approach (ICD-10-PCS; CPT 93452; principal; 2023-10-04 08:30)
DX: I25.10 Atherosclerotic heart disease of native coronary artery without angina pectoris (principal); Q24.5 Malformation of coronary vessels; R94.39 Abnormal result of other cardiovascular function study; I10 Essential (primary) hypertension; E11.9 Type 2 diabetes mellitus without complications; Z87.891 Personal history of nicotine dependence; Z79.84 Long term (current) use of oral hypoglycemic drugs; Z79.82 Long term (current) use of aspirin; Z79.51 Long term (current) use of inhaled steroids
CPT/HCPCS: 36415; 80048; 85025; 93458; A9270; C1769; C1887; C1894; J1644; J2250; J2305; J3010; J7040

== ENCOUNTER 2023-10-13 09:28 | Outpatient (CLI) | payer OTHER, SELFPAY ==
--- NOTE | ~2023-10-13 | XR_ITS ---
Clinical Indication: Back pain, chest pain PA and lateral views of the chest: Comparison: 07/15/2023 Findings: The lungs are clear, without evidence of focal consolidation or pleural effusion. Cardiome diastinal silhouette is within normal limits. Bones and soft tissues are unremarkable. Impression: Normal chest. Reviewed, dictated and finalized at location . TENANT SHIFT SUPERVISOR Impression: Normal chest.
== END 2023-10-13 09:29 | disposition home or self-care (01) ==
LOC: CHSIMG 09:30
PROVIDERS: PCP Nurse Practitioner Family; Visit Provider Nurse Practitioner Family
DX: Z01.818 Encounter for other preprocedural examination (principal); R06.02 Shortness of breath
CPT/HCPCS: 71046

== ENCOUNTER 2023-12-08 12:37 | Outpatient (CLI) | payer OTHER, SELFPAY ==
[2023-12-08 12:54] LABS: Basophils Absolute Auto 0.02 K/mm3 (0.00-0.10); Basophils Percent Auto 0.3 % (0.0-1.0); Eosinophils Absolute Auto 0.17 K/mm3 (0.02-0.50); Eosinophils Percent Auto 2.9 % (1.0-6.0); Hematocrit 39.2 % (40.0-54.0); Hemoglobin 14.1 g/dL (14.0-18.0); Immature Granulocyte Absolute 0.02 K/mm3 (0.00-0.00); Immature Granulocyte Percent A 0.3 % (0.0-0.0); Lymphocytes Absolute Auto 1.92 K/mm3 (1.10-4.50); Lymphocytes Percent Auto 32.4 % (18.0-42.0); Mean Corpuscular Hemoglobin 32.9 pg (27.0-31.0); Mean Corpuscular Volume 91.4 fL (78.0-102.0); Mean Platelet Volume 9.2 fl (8.7-11.0); Monocytes Absolute Auto 0.33 K/mm3 (0.10-0.90); Monocytes Percent Auto 5.6 % (2.0-11.0); Neutrophils Absolute Auto 3.5 K/mm3 (1.7-7.2); Neutrophils Percent Auto 58.5 % (50.0-70.0); Platelet Count Result 241 K/mm3 (150-420); Red Blood Count 4.29 M/mm3 (4.70-6.10); Red Cell Distribution Width 12.2 % (11.6-14.4); White Blood Count 5.9 K/mm3 (4.8-10.8)
[2023-12-08 12:57] LABS: Appearance Urine Clear (Clear); Bilirubin Urine Negative (Negative); Blood Urine Negative (Negative); Color Urine Yellow (Yellow); Glucose Urine UA 2+ (Negative); Ketones Urine Trace (Negative); Leukocyte Esterase Ur Negative LEU/UL (Negative); Nitrate Urine Negative (Negative); Protein Urine Negative (Negative)
[2023-12-08 13:01] LABS: Add Urine Microscopic? YES; Bacteria Urine Trace /hpf; RBC Urine None seen /hpf (0-2); WBC Urine None seen /hpf (0-3)
[2023-12-08 13:50] LABS: Hemoglobin A1C 9.2 % (<5.7)
[2023-12-08 14:09] LABS: Alanine Aminotransferase 24 U/L (16-63); Albumin Level 3.9 g/dL (3.4-5.0); Alkaline Phosphatase 98 U/L (46-116); Anion Gap 8 mmol/L (8-16); Aspartate Amino Transferase < 10 U/L (15-37); Bilirubin,Total 0.9 mg/dL (0.00-1.00); Blood Urea Nitrogen 13 mg/dL (7-18); Carbon Dioxide 30 mmol/L (21-32); Chloride 95 mmol/L (98-108); Estimated Glomerular Filt Rate > 60; Glucose 281 mg/dL (70-99); Osmolality Calculated 286 mOsm/kg (285-295); Potassium 4.1 mmol/L (3.5-5.1); Sodium 133 mmol/L (136-145)
== END 2023-12-08 12:38 | disposition home or self-care (01) ==
LOC: CHSLAB 12:40
PROVIDERS: PCP Nurse Practitioner Family
DX: Z01.818 Encounter for other preprocedural examination (principal)
CPT/HCPCS: 36415; 80053; 81001; 83036; 85025

== ENCOUNTER 2023-12-21 10:02 | Outpatient (CLI) | payer OTHER, SELFPAY ==
[2023-12-21 10:25] LABS: Hemoglobin A1C 8.4 % (<5.7)
== END 2023-12-21 10:03 | disposition home or self-care (01) ==
LOC: CHSLAB 10:05
PROVIDERS: PCP Nurse Practitioner Family
DX: Z01.818 Encounter for other preprocedural examination (principal)
CPT/HCPCS: 36415; 83036

== ENCOUNTER 2024-01-03 12:58 | Outpatient (CLI) | payer OTHER, SELFPAY ==
[2024-01-03 13:25] LABS: Hemoglobin A1C 7.2 % (<5.7)
[2024-01-03 13:54] LABS: Basophils Absolute Auto 0.01 K/mm3 (0.00-0.10); Basophils Percent Auto 0.1 % (0.0-1.0); Eosinophils Absolute Auto 0.09 K/mm3 (0.02-0.50); Eosinophils Percent Auto 1.1 % (1.0-6.0); Hematocrit 37.7 % (40.0-54.0); Hemoglobin 13.5 g/dL (14.0-18.0); Immature Granulocyte Absolute 0.02 K/mm3 (0.00-0.00); Immature Granulocyte Percent A 0.3 % (0.0-0.0); Lymphocytes Absolute Auto 2.47 K/mm3 (1.10-4.50); Lymphocytes Percent Auto 31.3 % (18.0-42.0); Mean Corpuscular HGB Conc 35.8 g/dL (32.0-36.0); Mean Corpuscular Hemoglobin 32.5 pg (27.0-31.0); Mean Corpuscular Volume 90.8 fL (78.0-102.0); Mean Platelet Volume 9.8 fl (8.7-11.0); Monocytes Absolute Auto 0.33 K/mm3 (0.10-0.90); Monocytes Percent Auto 4.2 % (2.0-11.0); Platelet Count Result 264 K/mm3 (150-420); Red Blood Count 4.15 M/mm3 (4.70-6.10); Red Cell Distribution Width 12.5 % (11.6-14.4); White Blood Count 7.9 K/mm3 (4.8-10.8)
[2024-01-03 14:17] LABS: Alanine Aminotransferase 23 U/L (16-63); Albumin Level 4.5 g/dL (3.4-5.0); Alkaline Phosphatase 81 U/L (46-116); Anion Gap 12 mmol/L (8-16); Aspartate Amino Transferase 11 U/L (15-37); Bilirubin,Total 0.7 mg/dL (0.00-1.00); Blood Urea Nitrogen 21 mg/dL (7-18); Calcium 8.8 mg/dL (8.5-10.1); Carbon Dioxide 25 mmol/L (21-32); Chloride 98 mmol/L (98-108); Estimated Glomerular Filt Rate > 60; Glucose 83 mg/dL (70-99); Osmolality Calculated 282 mOsm/kg (285-295); Potassium 4.5 mmol/L (3.5-5.1); Prostate Specific Antigen 0.5 ng/mL (< OR = 4.0); Sodium 135 mmol/L (136-145); Total Protein 7.7 g/dL (6.4-8.2)
== END 2024-01-03 12:59 | disposition home or self-care (01) ==
PROVIDERS: PCP Nurse Practitioner Family; Visit Provider Nurse Practitioner Family
DX: E11.9 Type 2 diabetes mellitus without complications (principal); R39.198 Other difficulties with micturition
CPT/HCPCS: 36415; 80053; 83036; 84153; 85025

== ENCOUNTER 2024-04-03 12:47 | Outpatient (CLI) | payer OTHER, SELFPAY ==
--- NOTE | ~2024-04-03 | US_ITS ---
EXAMINATION: US pelvic limited DATE: 04/03/2024 13:12 INDICATION: Other difficulties with micturition. TECHNIQUE: Multiple grayscale and Doppler ultrasound images of the pelvis were obtained. COMPARISON: None FINDINGS: The prevoid bladder volume is 596 mL. The postvoid bladder volume is 210 mL. There is no ab normal mass. IMPRESSION: 1. Abnormally high postvoid residual bladder volume. Reviewed, dictated and finalized at location A.
== END 2024-04-03 12:48 | disposition home or self-care (01) ==
LOC: CHSIMG 12:48
PROVIDERS: PCP Nurse Practitioner Family; Visit Provider Nurse Practitioner Family
DX: R39.198 Other difficulties with micturition (principal)
CPT/HCPCS: 76857

== ENCOUNTER 2024-07-14 15:23 | Outpatient (CLI) | payer OTHER, SELFPAY ==
[2024-07-14 15:53] LABS: Basophils Absolute Auto 0.02 K/mm3 (0.00-0.10); Basophils Percent Auto 0.3 % (0.0-1.0); Eosinophils Absolute Auto 0.09 K/mm3 (0.02-0.50); Eosinophils Percent Auto 1.6 % (1.0-6.0); Hematocrit 41.7 % (40.0-54.0); Hemoglobin 14.8 g/dL (14.0-18.0); Immature Granulocyte Absolute 0.01 K/mm3 (0.00-0.00); Immature Granulocyte Percent A 0.2 % (0.0-0.0); Lymphocytes Absolute Auto 1.68 K/mm3 (1.10-4.50); Lymphocytes Percent Auto 29.4 % (18.0-42.0); Mean Corpuscular HGB Conc 35.5 g/dL (32-36); Mean Corpuscular Hemoglobin 33.4 pg (27.0-31.0); Mean Corpuscular Volume 94.1 fL (78.0-102.0); Mean Platelet Volume 9.1 fl (8.7-11.0); Monocytes Absolute Auto 0.26 K/mm3 (0.10-0.90); Monocytes Percent Auto 4.5 % (2.0-11.0); Neutrophils Absolute Auto 3.66 K/mm3 (1.70-7.20); Platelet Count Result 215 K/mm3 (150-420); Red Blood Count 4.43 M/mm3 (4.70-6.10); Red Cell Distribution Width 13.2 % (11.6-14.4); White Blood Count 5.7 K/mm3 (4.8-10.8)
[2024-07-14 16:29] LABS: Hemoglobin A1C 5.4 % (<5.7)
[2024-07-14 16:38] LABS: Alanine Aminotransferase 15 U/L (16-63); Albumin Level 4.2 g/dL (3.4-5.0); Alkaline Phosphatase 77 U/L (46-116); Anion Gap 12 mmol/L (4-12); Aspartate Amino Transferase 11 U/L (15-37); Bilirubin,Total 0.7 mg/dL (0.00-1.00); Blood Urea Nitrogen 13 mg/dL (7-18); Calcium 9.2 mg/dL (8.5-10.1); Carbon Dioxide 28 mmol/L (21-32); Chloride 97 mmol/L (98-108); Estimated Glomerular Filt Rate 60; Glucose 140 mg/dL (70-99); Osmolality Calculated 286 mOsm/kg (285-295); Potassium 4.6 mmol/L (3.5-5.1); Sodium 137 mmol/L (136-145); Total Protein 7.2 g/dL (6.4-8.2)
== END 2024-07-14 15:24 | disposition home or self-care (01) ==
LOC: CHSLAB 15:25
PROVIDERS: PCP Nurse Practitioner Family; Visit Provider Nurse Practitioner Family
DX: E11.9 Type 2 diabetes mellitus without complications (principal); I10 Essential (primary) hypertension
CPT/HCPCS: 36415; 80053; 83036; 85025

== ENCOUNTER 2024-10-16 07:49 | Outpatient (CLI) | payer OTHER, SELFPAY ==
[2024-10-16 08:32] LABS: Hemoglobin A1C 5.8 % (<5.7)
== END 2024-10-16 07:50 | disposition home or self-care (01) ==
LOC: CHSLAB 07:51
PROVIDERS: PCP Nurse Practitioner Family; Visit Provider Nurse Practitioner Family
DX: E11.9 Type 2 diabetes mellitus without complications (principal)
CPT/HCPCS: 36415; 83036

== ENCOUNTER 2025-01-03 07:30 | Outpatient (CLI) | payer MEDICARE, SELFPAY ==
--- OUTSIDE RECORDS SUMMARY | 2025-01-03 07:35 | XMS_ITS | Clinical Summary ---
Author Organization [facility] Address [address] [place] [address] Phone Care Team Providers Care Skiver Box Toe Name Role Phone Rebeca Cortes DRAFTING CLERK, SHANKER OUT Primary Care Provi harinder Hernán Allison DRAFTING CLERK, SHANKER OUT Unavailable [phone] Allergies No known active allergies Medications albuterol 108 (90 Base) MCG/ACT Aerosol Solution 2 Puffs. 3 Active meloxicam (MOBIC) 15 MG Tablet Take 1 Tablet by mouth daily. 4 Active cyclobenzaprine (FLEXERIL) 10 MG Tablet TAKE 1 TABLET BY MOUTH AT BEDTIME NEEDED FOR MUSCLE SPASM Active Jardiance 10 MG Tablet Take 10 mg by mouth daily. Active chlorthalidone (HYGROTON) 25 MG Tablet Take 25 mg by mouth daily. Active lisinopril (PRINIVIL, ZESTRIL) 40 MG Tablet Take 40 mg by mouth daily. Active metFORMIN (GLUCOPHAGE) 1000 MG Tablet Take 1,000 mg by mouth 2 times daily. Active pravastatin (PRAVACHOL) 10 MG Tablet Take 10 mg by mouth daily. Active Dulaglutide (TRULICITY SC) by Subcutaneous route. Active tamsulosin (FLOMAX) 0.4 MG CapsuleIndicati ons:Benign prostatic hyperplasia with incomplete bladder emptying Take 1 Capsule by mouth daily. 30 Capsule 1 4 Active Social History Tobacco Use Types Packs/Day Years Used Date Smoking Tobacco: Former Cigarettes Smokeless Tobacco: Never Tobacco Cessation:Counseling Given: Not Answered Sex and Gender Information Value Date Recorded Sex Assigned at Not on file Legal Sex Male 8:36 AM CDT Gender Identity Not on file Sexual Orientation Not on file Last Filed Vital Signs Vital Sign Reading Time Taken Comments Blood Pressure 161/84 06/26/2024 10:45 AM CDT Pulse 91 06/26/2024 10:45 AM CDT Temperature - - Respiratory Rate 20 06/26/2024 10:45 AM CDT Oxygen Saturation 96% 06/26/2024 10:45 AM CDT Inhaled Oxygen Concentration - - Weight 89.8 kg (198 lb) 06/26/2024 10:45 AM CDT Height 182.9 cm (6') 06/26/2024 10:45 AM CDT Body Mass Index 26.85 06/26/2024 10:45 AM CDT Plan of Treatment Upcoming Encounters Date Type Department Care Team (Late st Contact Info) Description 01/07/2025 1:45 PM SKIVER BOX TOE Office Visit [facility] [address] [place] [address] Hernán Allison APRN, SHANKER OUT [address] [place] [address] Health Maintenance Due Date Last Done Comments Hepatitis C Virus (HCV) Screening 1960 TdaP Immunization 1959 Colonoscopy 2004 Colorectal Cancer Screening 2004 Cologuard 2009 Immunochemical Fecal Occult Blood 2009 Pneumococcal Immunization (5 0+ years) (1 of 1 - PCV) 2009 Zoster Immunization (1 of 2) 2009 PSA Discussion 2014 Respiratory Syncytial Virus (RSV) Immunization (Adult) (1 - Risk 60-74 years 1-dose series) 2019 Influenza Immunization (#1) 2024 SARS-COV-2 Immunization (2023- season) 2024 AAA Screening Ultrasound 2024 Hepatitis B Immunization Aged Out No longer eligible based on patient's age to complete this topic Meningococcal Immunization (ACWY) Aged Out No longer eligible based on patient's age to complete this topic Rotavirus Immunization Aged Out No lo nger eligible based on patient's age to complete this topic Insurance MEDICAID [employer] Care Teams Skiver Box Toe Relationship Specialty Start Date End Date Rebeca Cortes, DRAFTING CLERK, SHANKER OUT [address] [place] [address] PCP - General Advanced Practice Nurse 05/07/24 Hernán Allison APRN, SHANKER OUT [address] [place] [address] Nurse Practitioner Advanced Practice Nurse 05/07/24
--- OUTSIDE RECORDS SUMMARY | 2025-01-03 07:35 | XMS_ITS | Referral Summary ---
Author Organization [facility] Address [address] [place] [address] Care Team Providers Care Cullet Crusher And Washer Name Role Phone Zionnatanaellisa Rebeca Raymon NULL Primary Care Provider [phone] Alireza Modi MD Unavailable [phone] Encounters Date Type Department Care Team Description 11/09/2024 Documentation [facility] Medical [facility] Orthopedics and Sports Medicine [address] [place] [phone] Jasmin Lema MA 11/08/2024 7:42 AM TOOLS ADMINISTRATOR - 11/08/2024 11:59 PM TOOLS ADMINISTRATOR Hospital Encounter [facility] Medical [facility] Orthopedics and Sports Medicine [address] [place] [phone] Discharge Disposition: Discharge to home or self care 11/08/2024 9:45 AM TOOLS ADMINISTRATOR Office Visit [facility] Orthopedics and Sports Medicine [address] [place] [phone] Alireza Modi MD Left hip pain (Primary Dx); Primary osteoarthritis of left hip from Last 3 Months Allergies No known active allergies Medications chlorthalidone 25 mg tablet Take 1 tablet (25 mg total) by mouth daily 0 Active metFORMIN (GLUCOPHAGE) 1,000 mg tablet Take 1 tablet (1,000 mg total) by mouth daily with breakfast 0 Active lisinopriL (PRINIVIL,ZESTRIL) 40 mg tablet Take 1 tablet (40 mg total) by mouth daily 0 Active albuterol HFA (PROVENTIL HFA,VENTOLIN HFA,PROAIR HFA) 90 mcg/actuation inhaler Inhale 2 puffs every 4 (four) hours as needed 3 Active Jardiance 10 mg tablet Take 1 tablet (10 mg total) by mouth daily 4 Active pravastatin (PRAVACHOL) 10 mg tablet Take 1 tablet (10 mg total) by mouth daily 3 Active cyclobenzaprine (FLEXERIL) 10 mg tablet Take 1 tablet (10 mg total) by mouth every evening 4 Active dulaglutide (TRULICITY) 0.75 mg/0.5 mL pen injector Inject 0.5 mL (0.75 mg total) under the skin every 7 days Takes on Fridays Active ferrous sulfate 325 mg (65 mg of elemental iron) tablet Take 1 tablet (325 mg total) by mouth daily with breakfast Active ascorbic acid (VITAMIN C) 500 mg tablet,chewableInd ications:Vitamin deficiency prevention Take 1 tablet/chew tab (500 mg total) by mouth daily 30 tablet/chew tab 4 Active aspirin 325 mg enteric coated tabletIndications: Deep Vein Thrombosis Prevention Take 1 tablet (325 mg total) by mouth daily 42 tablet 4 01/09/20 25 Active celecoxib (CeleBREX) 200 mg capsuleIndications :Pain Take 1 capsule (200 mg total) by mouth 2 (two) times a day 84 capsule 4 Active ondansetron ODT (ZOFRAN-ODT) 4 mg disintegrating tabletIndications: nausea and vomiting Take 1 tablet (4 mg total) by mouth every 6 (six) hours as needed for nausea or vomiting 20 tablet 2 4 Active senna-docusate (PERICOLACE) 8.6-50 mgIndications:cons tipation Take 2 tablets by mouth 2 (two) times a day 60 tablet 2 4 Active oxyCODONE-acetamin ophen (PERCOCET) 5-325 mg per tabletIndications: Pain Take 1-2 tablets by mouth every 4 (four) hours as needed for pain 40 tablet 4 Active Active Problems Problem Noted Date Diagnosed Date Aftercare following right hip joint replacement surgery 02/23/2024 Resolved Problems Problem Noted Date Diagnosed Date Resolved Date Primary osteoarthritis of right hip 09/08/2023 02/23/2024 Social History Tobacco Use Types Packs/Day Years Used Date Smoking Tobacco: Former Cigarettes Q uit: 12/30/2023 Smokeless Tobacco: Never Alcohol Use Standard Drinks/Week Comments Yes 0 (1 standard drink = 0.6 oz pur e alcohol) AUDIT-C Answer Date Recorded Q1: How often do you have a drink containing alcohol? 4 or more times a week 01/04/2024 Q2: How many drinks containi ng alcohol do you have on a typical day when you are drinking? 1 or 2 Frequency of Binge Drinking Not on file 05/2024 PHQ-2 Answer Date Recorded PHQ-2 Total Score (If total score is 3 or more points, staff should administer the PHQ-9) 0 01/09/2024 Personal Safety Answer Date Recorded Have you ever been in or are you currently in a harmful physical or emotional relationship or is someone making you feel afraid or unsafe? Denies 01/09/2024 Sex and Gender Information Value Date Recorded Sex Assigned at Not on file Legal Sex Male 10:32 AM CDT Gender Identity Not on file Sexual Orientation Not on file Last Filed Vital Signs Vital Sign Reading Time Taken Comments Blood Pressure 124/82 02/28/2024 1:21 PM CDT Pulse 81 02/28/2024 1:21 PM CDT Temperature 35.5 C (95.9 F) 01/10/2024 7:10 AM TOOLS ADMINISTRATOR Respiratory Rate 18 01/10/2024 7:10 AM TOOLS ADMINISTRATOR Oxygen Saturation 91% 01/10/2024 7:10 AM TOOLS ADMINISTRATOR Inhaled Oxygen Concentration - - Weight 93 kg (205 lb) 11/08/2024 9:36 AM TOOLS ADMINISTRATOR Height 176.5 cm (5' 9.5 ) 11/08/2024 9:36 AM TOOLS ADMINISTRATOR Body Mass Index 29.84 11/08/2024 9:36 AM TOOLS ADMINISTRATOR Plan of Treatment Not on file Medical Devices Implanted Type Area Packaging Associate Device Identifier Shelf Expiration Date Model / Serial / Lot Dep[employer]op[employer] Arrey 60mm Sector Hip Shell Acetabular Gription Sterile Latex Free [id number] - [id number] Implanted:Qty: 1 on 01/09/2024 by Alireza Modi MD at [facility] Right: Hip [employer] 09/27/2033 [id number] / / [id number] [employer] Arrey 60mm 36mm Hip Neutral Liner Acetabular Altrx Sterile Latex Free [id number] - [id number] Implanted:Qty: 1 on 01/09/2024 by Alireza Modi MD at [facility] Right: Hip [employer] 08/27/2028 [id number] / / [id number] [employer] Arrey 6.5mm 35mm Acetabular Cancellous Screw Bone Sterile 1217-35-500 - [id number] Implanted:Qty: 1 on 01/09/2024 by Alireza Modi MD at [facility] Right: Hip [employer] 09/27/2033 1217-35-500 / / [id number] [employer] Arrey 6.5mm 35mm Acetabular Cancellous Screw Bone Sterile 1217-35-500 - [id number] Implanted:Qty: 1 on 01/09/2024 by Alireza Modi MD at [facility] Right: Hip [employer] 07/28/2033 1217-35-500 / / [id number] [employer] Articul/Law 36mm Cementless Hip +8.5mm /14 Taper Head Femoral Latex Free 1365-36-330 - [id number] Implanted:Qty: 1 on 01/09/2024 by Alireza Modi MD at [facility] Right: Hip [employer] 08/27/2028 1365-36-330 / / [id number] [employer] Stem Femoral Hip Porous Proximal Collared Actis Titanium High Offset Size 12 [id number] - Sna - [id number] Implanted:Qty: 1 on 01/09/2024 by Alireza Modi MD at [facility] Right: Hip [employer] [id number] 05/27/2026 [id number] / NA / [id number] Procedures Procedure Name Priority Date/Time Associated Diagnosis Comments XR HIP LEFT 2 OR 3 VIEWS Schedule Routine, Read Routine (OP Routine) 11/08/2024 9:45 AM TOOLS ADMINISTRATOR Left hip pain from Last 3 Months Results * XR Hip Left 2 or 3 Views (11/08/2024 9:45 AM TOOLS ADMINISTRATOR) Anatomical Region Laterality Modality Lower Extremities, Hip, Pelvis Left D igital Radiography Narrative 11/08/2024 1:03 PM TOOLS ADMINISTRATOR Severe left hip osteoarthritis with lflv-[id number] contact, osteophyte formation, subluxation. Appropriately placed right total hip arthroplasty without interval change noted. Alireza Modi MD IMG XR PROCEDURES Final Result from Last 3 Months Insurance MEDICARE MEDICARE Advance Directives For more information, please contact: [phone] * Full Code (Latest Code Status on File) Date Activated Date Inactivated Comments 01/09/2024 2:48 PM 01/10/2024 4:25 PM Care Teams Cullet Crusher And Washer Relationship Specialty Start Date End Date Rebeca Cortes, UX UI DESIGNER [address] [place] [address] PCP - General Nurse Practitioner 08/28/20 Alireza Mdoi MD [address] [place] [address] DR TRAMMELL [address] [place] [address] Surgeon Orthopedic Surgery 01/10/24
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
[2025-01-03 07:46] LABS: Add Urine Microscopic? NO; Appearance Urine Clear (Clear); Basophils Absolute Auto 0.01 K/mm3 (0.00-0.10); Basophils Percent Auto 0.1 % (0.0-1.0); Bilirubin Urine Negative (Negative); Blood Urine Negative (Negative); Color Urine Light Yellow (Yellow); Eosinophils Absolute Auto 0.12 K/mm3 (0.02-0.50); Eosinophils Percent Auto 1.7 % (1.0-6.0); Glucose Urine UA Negative (Negative); Hemoglobin 13.2 g/dL (12.4-15.3); Immature Granulocyte Absolute 0.03 K/mm3 (0.00-0.00); Immature Granulocyte Percent A 0.4 % (0.0-0.0); Ketones Urine Negative (Negative); Leukocyte Esterase Ur Negative LEU/UL (Negative); Lymphocytes Absolute Auto 1.72 K/mm3 (1.10-4.50); Lymphocytes Percent Auto 24.6 % (18.0-42.0); Mean Corpuscular HGB Conc 34.7 g/dL (32-36); Mean Corpuscular Hemoglobin 32.6 pg (27.0-31.0); Mean Corpuscular Volume 93.8 fL (78.0-102.0); Mean Platelet Volume 9.2 fl (8.7-11.0); Monocytes Absolute Auto 0.32 K/mm3 (0.10-0.90); Monocytes Percent Auto 4.6 % (2.0-11.0); Neutrophils Absolute Auto 4.79 K/mm3 (1.70-7.20); Neutrophils Percent Auto 68.6 % (50.0-70.0); Nitrate Urine Negative (Negative); Platelet Count Result 193 K/mm3 (150-420); Protein Urine Negative (Negative); Red Blood Count 4.05 M/mm3 (4.70-6.10); Red Cell Distribution Width 12.4 % (11.6-14.4); Specific Grav Ur 1.015 (1.010-1.020); Urobilinogen Urine 0.2 mg/dL (0.2-1.0); pH Urine 6.5 (5.0-8.0)
[2025-01-03 08:21] LABS: Hemoglobin A1C 6.5 % (<5.7)
[2025-01-03 08:29] LABS: Alanine Aminotransferase 17 U/L (16-63); Alkaline Phosphatase 89 U/L (46-116); Anion Gap 10 mmol/L (4-12); Aspartate Amino Transferase < 10 U/L (15-37); Bilirubin,Total 0.9 mg/dL (0.00-1.00); Blood Urea Nitrogen 14 mg/dL (7-18); Calcium 9.2 mg/dL (8.5-10.1); Carbon Dioxide 30 mmol/L (21-32); Chloride 100 mmol/L (98-108); Estimated Glomerular Filt Rate > 60; Glucose 132 mg/dL (70-99); Osmolality Calculated 292 mOsm/kg (285-295); Potassium 4.1 mmol/L (3.5-5.1); Sodium 140 mmol/L (136-145); Total Protein 7.2 g/dL (6.4-8.2)
== END 2025-01-03 07:31 | disposition home or self-care (01) ==
LOC: CHSLAB 07:33
PROVIDERS: PCP Nurse Practitioner Family; Visit Provider Orthopaedic Surgery
DX: M25.552 Pain in left hip (principal)
CPT/HCPCS: 36415; 80053; 81003; 83036; 85025

== ENCOUNTER 2025-01-07 15:07 | Outpatient (CLI) | payer MEDICARE, MEDICAID, SELFPAY ==
--- NOTE | ~2025-01-07 | XR_ITS ---
EXAMINATION: XR chest 2V DATE: 01/07/2025 15:23 INDICATION: Emphysema. Preop. TECHNIQUE: Frontal and lateral views of the chest were obtained. COMPARISON: Chest CT 07/16/2023, chest 2 views 10/13/2023 FINDINGS: There is no pneumonia, pleural effusion, or pneumothorax. The heart size is normal. IMPRESSION: 1. No acute cardiopulmonary disease. Reviewed, dictated and finalized at location A. [facility] AG[facility]
--- NOTE | 2025-01-07 15:17 | ECG_ITS ---
Test Date: 2025-01-07 15:41:02 Measurements Intervals [place] Rate: 89 P: 73 [place]: 169 QRS: -81 QRSD: 125 T: 64 QT: 364 QTc: 445 Interpretive Statements SINUS RHYTHM LEFT ANTERIOR FASCICULAR BLOCK CONSIDER HIGH LATERAL INFARCT, AGE INDETERMINATE BASELINE WANDER- I, AVR, V4-V6 ABNORMAL ECG No previous ECG available for comparison Electronically Signed On 01-07-2025 17:03:52 WET CROWN BLOCKING OPERATOR by Hema Norris D.O.
--- OUTSIDE RECORDS SUMMARY | 2025-01-07 15:18 | XMS_ITS | Encounter Summary ---
Author Organization [facility] Address [address] [place] [address] Phone Care Team Providers Care Steam Trap Man Name Role Phone Rebeca Hood TEAM LEADER, NURSE ORTHO Primary Care Provi harindre Hernán Allison TEAM LEADER, NURSE ORTHO Unavailable [phone] Encounter Details Date Type Department Care Team (Late st Contact Info) Description 01/07/2025 1:45 PM BROOMMAKING SUPERVISOR Office Visit [facility] [address] [place] [address] Hernán Allison, TEAM LEADER, NURSE ORTHO [address] [place] [address] Urinary frequency (Primary Dx); Benign prostatic hyperplasia with incomplete bladder emptying Discharge Disposition: Discharged to home or Selfcare Social History Tobacco Use Types Packs/Day Years Used Date Smoking Tobacco: Former Cigarettes Smokeless Tobacco: Never Sex and Gender Information Value Date Recorded Sex Assigned at Not on file Legal Sex Male 8:36 AM CDT Gender Identity Not on file Sexual Orientation Not on file documented as of this encounter Last Filed Vital Signs Vital Sign Reading Time Taken Comments Blood Pressure 171/91 01/07/2025 1:46 PM BROOMMAKING SUPERVISOR Pulse 91 01/07/2025 1:46 PM BROOMMAKING SUPERVISOR Temperature - - Respiratory Rate 16 01/07/2025 1:46 PM BROOMMAKING SUPERVISOR Oxygen Saturation - - Inhaled Oxygen Concentration - - Weight 98.9 kg (218 lb) 01/07/2025 1:46 PM BROOMMAKING SUPERVISOR Height 180.3 cm (5' 11 ) 01/07/2025 1:46 PM BROOMMAKING SUPERVISOR Body Mass Index 30.4 01/07/2025 1:46 PM BROOMMAKING SUPERVISOR documented in this encounter Progress Notes * Hernán Allison, TEAM LEADER, NURSE ORTHO - 01/07/2025 1:45 PM CST UROLOGY [facility] [address], [address] [place] [address] PHONE: FAX: Assessment & Plan LUTS- PVR remains low. No concern for retention. He is happy with current voiding status. He does not wish for any intervention at this point in time. Limit bladder irritants and limit fluids 2 hoursprior to bedtime. Micro UA sent off last visit was negative for blood. Urine dip today negative. Follow up as needed Encounter for prostate cancer screening-due for PSA. States he will complete with his primary care doctor Subjective: 05/07/2024 HPI: HPI: Eric Sarmiento presents with a chief complaint of bothersome LUTS. Patient saw PCP with c/o urinary frequency and weak urinary stream. Voids about every 1-2 hours during the day. Reports associated hesitancy. PSA 01/03/2024--0.5. He had a pelvic US 03/2024 which showed a post void residual of 210 cc. Hx of DM2 on Jardiance started in Dec. States he came off Jardiance for 2 weeks without improvement in urinary symptoms. Denies urgency or incontinence. Nocturia q1-2 hours. UA- negative for blood or infection--+3 glucose PVR- 0cc 06/26/2024 HPI: HPI: Eric Sarmiento presents to the office for follow-up. He was started on tamsulosin 0.4 mg daily. He did not note any improvement in urinary symptoms. He he is not having any irritative LUTS.Biggest complaint is weak urinary stream. Trace blood on urine dip today. He is a former smoker. Smoked 1 pack per day for about 30 years. Denies gross hematuria UA-negative LE, negative nitrite, trace blood PVR-96 cc 01/07/2025 HPI: HPI: Eric Sarmiento presents to the office for six-month follow-up. Urinary symptoms have beenstable. Does complain of weak stream, but after a couple of seconds flow improves. He does complainof urgency/frequency particularly at nighttime whenever he drinks alcohol. He denies any dysuria orgross hematuria UA-negative for blood or infection PVR-21 cc The following portions of the patient's chart were reviewed in this encounter and updated as appropriate: ROS: Review of Systems Constitutional: Negative for chills and fever. Respiratory: Negative for cough and shortness of breath. Cardiovascular: Negative for chest pain and palpitations. Gastrointestinal: Negative for abdominal pain, diarrhea, nausea and vomiting. Genitourinary: Positive for frequency and urgency. Negative for dysuria and hematuria. Musculoskeletal: Negative for myalgias. Neurological: Negative for dizziness and weakness. Objective: Vital signs: There were no vitals taken for this visit. There were no vitals filed for this visit. Physical Exam Constitutional: Appearance: Normal appearance. HENT: Head: Normocephalic. Cardiovascular: Rate and Rhythm: Normal rate. Pulmonary: Effort: Pulmonary effort is normal. No respiratory distress. Abdominal: General: Abdomen is flat. Palpations: Abdomen is soft. Tenderness: There is no abdominal tenderness. Musculoskeletal: Cervical back: Neck supple. Skin: General: Skin is warm and dry. Capillary Refill: Capillary refill takes less than 2 seconds. Neurological: General: No focal deficit present. Mental Status: He is alert and oriented to person, place, and time. No results found for: WBC , HEMOGLOBIN , HEMATOCRIT , PLATELETCNT , MCV No results found for: SODIUM , POTASSIUM , CHLORIDE , CO2VEN , ANIONGAP , GLUCOSE , BUN , CREATININE , BCRATIO8 , TOTALPROTEIN , ALBUMIN , AGRATIO , CALCIUM , TBIL , SGOTAST , SGPTALT , ALKALINEPHO , GFRNA , GFRA No results found for: PSASCREEN , PSA , PSAFREE , PSAPCNTFREE , PSATOTAL Results for orders placed or performed in visit on 06/26/24 URINALYSIS REFLEX IF INDICATED BY ABNORMAL RESULTS Result Value Ref Range Status SPECIFIC GRAVITY 1.010 1.003 - 1.030 Final URINE PH 5.0 5.0 - 9.0 Final WBC ESTERASE Negative Negative Final NITRITE Negative Negative Final PROTEIN, RANDOM URINE 15 mg/dL (A) Negative Final URINE GLUCOSE, QUAL 1000 mg/dL (A) Negative Final URINE KETONES Negative Negative Final UROBILINOGEN Normal Normal mg/dL Final URINE BLOOD Negative Negative benjamin/ul Final URINALYSIS COLOR Yellow Final URINALYSIS CLARITY Clear Final WBC (Urine) Negative Negative, 0-5 /hpf Final URINE RBC'S 0-2 Negative, 0-2 /hpf Final EPITHELIAL CELLS Negative /lpf Final BACTERIA, URINE Negative Negative /hpf Final No results found for: TESTOSTTTL No results found for this or any previous visit from the past 365 days. There are no diagnoses linked to this encounter. By: Hernán Allison APRN, CNP, 01/07/2025, 11:52 AM BROOMMAKING SUPERVISOR Primary Care Physician: REBECA HOOD APRN, CNP MMAKING SUPERVISOR MMAKING SUPERVISOR documented in this encounter Plan of Treatment Scheduled Orders Name Type Priority Associated Diagnoses Orde r Schedule FREDDY,POST-VOID RES,US,NON-IMAGING Procedures Routine Urinary frequency Ordered: 01/07/2025 documented as of this encounter Procedures Procedure Name Priority Date/Time Associated Diagnosis Comments POCT UA AUTOMATED W/O MICRO Routine 01/07/2025 1:50 PM BROOMMAKING SUPERVISOR Urinary frequency documented in this encounter Results * POCT UA AUTOMATED W/O MICRO (01/07/2025 1:50 PM BROOMMAKING SUPERVISOR) POC UA SPECIFIC GRAVITY 1.015 URINE PH 6.0 5.0 - 9.0 POC URINE LEUKOCYTES Negative Negative Rashaad/uL POC URINE NITRITE Negative Negative POC URINE PROTEIN Negative Negative mg/dL POC URINE GLUCOSE Norm Negative, Norm mg/dL POC URINE KETONE Negative Negative mg/dL POC URINE UROBILINOGEN Norm Norm, 0.2 E.U./dL (mg/dL), 1 E.U./dL (mg/dL) POC URINE BILIRUBIN Negative Negative mg/dL POC URINE BLOOD INSTRUMENT Negative Negative Benjamin/uL POC URINE COLOR Yellow POC URINE CLARITY Clear 01/07/2025 1:50 PM BROOMMAKING SUPERVISOR us Hernán Allison APRN, CNP POINT OF CARE TESTING (MANUAL) Final Result documented in this encounter Visit Diagnoses Diagnosis Urinary frequency- Primary Benign prostatic hyperplasia with incomplete bladder emptying documented in this encounter Care Teams Steam Trap Man Relationship Specialty Start Date End Date Rebeca Hood APRN, NURSE ORTHO [address] [place] [address] PCP - General Advanced Practice Nurse 05/07/24 Hernán Allison APRN, NURSE ORTHO [address] [place] [address] Nurse Practitioner Advanced Practice Nurse 05/07/24 documented as of this encounter
--- OUTSIDE RECORDS SUMMARY | 2025-01-07 15:18 | XMS_ITS | Referral Summary ---
Author Organization [facility] Building [facility] Address [address] [place] [address] Care Team Providers Care Webfed Offset Press Operator Name Role Phone Zionnatanaellisa Rebeca Raymon NULL Primary Care Provider [phone] Alireza Modi MD Unavailable [phone] Encounters Date Type Department Care Team Description 11/09/2024 Documentation [facility] Orthopedics and Sports Medicine [address] [place] [phone] Jasmin Lema MA 11/08/2024 7:42 AM PLEATER HAND - 11/08/2024 11:59 PM PLEATER HAND Hospital Encounter [facility] [address] [place] [phone] Discharge Disposition: Discharge to home or self care 11/08/2024 9:45 AM PLEATER HAND Office Visit [facility] Orthopedics and Sports Medicine [address] [place] [phone] Alireza Modi MD Left hip pain (Primary [...] 35.5 C (95.9 F) 01/10/2024 7:10 AM PLEATER HAND Respiratory Rate 18 01/10/2024 7:10 AM PLEATER HAND Oxygen Saturation 91% 01/10/2024 7:10 AM PLEATER HAND Inhaled Oxygen Concentration - - Weight 93 kg (205 lb) 11/08/2024 9:36 AM PLEATER HAND Height 176.5 cm (5' 9.5 ) 11/08/2024 9:36 AM PLEATER HAND Body Mass Index 29.84 11/08/2024 9:36 AM PLEATER HAND Plan of Treatment Not on file Medical Devices Implanted Type Area Paint Booth Operator Device Identifier Shelf Expiration Date Model / Serial / Lot Dep[employer]Muse [employer] [place] 60mm Sector Hip Shell Acetabular Gription Sterile Latex Free [id number] - [id number] Implanted:Qty: 1 on 01/09/2024 by Alireza Modi MD at [facility] Right: Hip [employer] 09/27/2033 [id number] / / [id number] [employer] [place] 60mm 36mm Hip Neutral Liner Acetabular Altrx Sterile Latex Free [id number] - [id number] Implanted:Qty: 1 on 01/09/2024 by Alireza Modi MD at [facility] Right: Hip [employer] 08/27/2028 [id number] / / [id number] [employer] [place] 6.5mm 35mm Acetabular Cancellous Screw Bone Sterile 1217-35-500 - [id number] Implanted:Qty: 1 on 01/09/2024 by Alireza Modi MD at [facility] Right: Hip [employer] 09/27/2033 1217-35-500 / / [id number] [employer] [place] 6.5mm 35mm Acetabular Cancellous Screw Bone Sterile 1217-35-500 - [id number] Implanted:Qty: 1 on 01/09/2024 by Alireza Modi MD at [facility] Right: Hip [employer] 07/28/2033 1217-35-500 / / [id number] [employer] Articul/Law 36mm Cementless Hip +8.5mm /14 Taper Head Femoral Latex Free 1365-36-330 - [id number] Implanted:Qty: 1 on 01/09/2024 by Alireza Modi MD at [facility] Right: Hip [employer] 08/27/2028 1365-36-330 / / [id number] [employer] Stem Femoral Hip Porous Proximal Collared Actis Titanium High Offset Size 12 [id number] - Sna - [id number] Implanted:Qty: 1 on 01/09/2024 by Alireza Modi MD at [facility] Right: Hip [employer] [id number] 05/27/2026 [id number] / NA / [id number] Procedures Procedure Name Priority Date/Time Associated Diagnosis Comments XR HIP LEFT 2 OR 3 VIEWS Schedule Routine, Read Routine (OP Routine) 11/08/2024 9:45 AM PLEATER HAND Left hip pain from Last 3 Months Results * XR Hip Left 2 or 3 Views (11/08/2024 9:45 AM PLEATER HAND) Anatomical Region Laterality Modality Lower Extremities, Hip, Pelvis Left D igital Radiography Narrative 11/08/2024 1:03 PM PLEATER HAND Severe left hip osteoarthritis with twmo-iq-byup contact, osteophyte formation, subluxation. Appropriately placed right total hip arthroplasty without interval change noted. Alireza Modi MD IMG XR PROCEDURES Final Result from Last 3 Months Insurance MEDICARE MEDICARE Advance Directives For more information, please contact: [phone] * Full Code (Latest Code Status on File) Date Activated Date Inactivated Comments 01/09/2024 2:48 PM 01/10/2024 4:25 PM Care Teams Webfed Offset Press Operator Relationship Specialty Start Date End Date Rebeca Cortes, LICENSED LOAN OFFICER ASSISTANT [address] [place] [address] PCP - General Nurse Practitioner 08/28/20 Alireza Modi MD [address] [place] [address] DR TRAMMELL [address] [place] [address] Surgeon Orthopedic Surgery 01/10/24
--- OUTSIDE RECORDS SUMMARY | 2025-01-07 15:18 | XMS_ITS | Encounter Summary ---
Author Organization [facility] Care Team Providers Care Electrical Logger Name Role Phone Rebeca Cortes APRN, PAULIE Primary Care Provi harinder Hernán Allison APRN, PAULIE Unavailable [phone] Encounter Details Date Type Department Care Team (Latest Contact Info) Description 01/07/2025 Travel Social History Tobacco Use Types Packs/Day Years Used Date Smoking Tobacco: Former Cigarettes Smokeless Tobacco: Never Sex and Gender Information Value Date Recorded Sex Assigned at Not on file Legal Sex Male 8:36 AM CDT Gender Identity Not on file Sexual Orientation Not on file documented as of this encounter Plan of Treatment Not on file documented as of this encounter Visit Diagnoses Not on filedocumented in this encounter Care Teams Electrical Logger Relationship Specialty Start Date End Date Rebeca Cortes APRN, ORTHODONTIC TECHNICIAN ASSISTANT [address] [place] [address] PCP - General Advanced Practice Nurse 05/07/24 Hernán Allison APRN, ORTHODONTIC TECHNICIAN ASSISTANT [address] [place] [address] Nurse Practitioner Advanced Practice Nurse 05/07/24 documented as of this encounter
--- OUTSIDE RECORDS SUMMARY | 2025-01-07 15:18 | XMS_ITS | Clinical Summary ---
Author Organization [facility] Address [address] [place] [address] Phone Care Team Providers Care Delivery Specialist Name Role Phone Rebeca Cortes PROFESSOR OF PHYSICS, BETTING CLERK Primary Care Provi harinder Hernán Allison APRN, BETTING CLERK Unavailable [phone] Allergies No known active allergies Medications albuterol [...] mouth daily. 30 Capsule 1 4 Active Encounters Date Type Department Care Team Description 01/07/2025 1:45 PM WINEMAKER Office Visit [facility] [address] [place] [address] Hernán Allison, PROFESSOR OF PHYSICS, BETTING CLERK Urinary frequency (Primary Dx); Benign prostatic hyperplasia with incomplete bladder emptying Discharge Disposition: Discharged to home or Selfcare 01/07/2025 Travel from Last 3 Months Social History Tobacco Use Types Packs/Day Years Used Date Smoking Tobacco: Former Cigarettes Smokeless Tobacco: Never Sex and Gender Information Value Date Recorded Sex Assigned at Not on file Legal Sex Male 8:36 AM CDT Gender Identity Not on file Sexual Orientation Not on file Last Filed Vital Signs Vital Sign Reading Time Taken Comments Blood Pressure 171/91 01/07/2025 1:46 PM WINEMAKER Pulse 91 01/07/2025 1:46 PM WINEMAKER Temperature - - Respiratory Rate 16 01/07/2025 1:46 PM WINEMAKER Oxygen Saturation 96% 06/26/2024 10:45 AM CDT Inhaled Oxygen Concentration - - Weight 98.9 kg (218 lb) 01/07/2025 1:46 PM WINEMAKER Height 180.3 cm (5' 11 ) 01/07/2025 1:46 PM WINEMAKER Body Mass Index 30.4 01/07/2025 1:46 PM WINEMAKER Plan of Treatment Health Maintenance Due Date [...] on patient's age to complete this topic Procedures Procedure Name Priority Date/Time Associated Diagnosis Comments POCT UA AUTOMATED W/O MICRO Routine 01/07/2025 1:50 PM WINEMAKER Urinary frequency from Last 3 Months Results * POCT UA AUTOMATED W/O MICRO (01/07/2025 1:50 PM WINEMAKER) POC UA SPECIFIC GRAVITY 1.015 URINE PH [...] mg/dL POC URINE BLOOD INSTRUMENT Negative Negative Chris/uL POC URINE COLOR Yellow POC URINE CLARITY Clear 01/07/2025 1:50 PM WINEMAKER Hernán Allison PROFESSOR OF PHYSICS, BETTING CLERK POINT OF CARE TESTING (MANUAL) Final Result from Last 3 Months Insurance MEDICARE MEDICAID [place] Care Teams Delivery Specialist Relationship Specialty Start Date End Date Rebeca Cortes APRN, BETTING CLERK [address] [place] [address] PCP - General Advanced Practice Nurse 05/07/24 Hernán Allison APRN, BETTING CLERK [address] [place] [address] Nurse Practitioner Advanced Practice Nurse 05/07/24
--- OUTSIDE RECORDS SUMMARY | 2025-01-07 15:18 | XMS_ITS | Clinical Summary ---
Author Organization [facility] Office Building B Address [address] [place] [address] Care Team Providers Care Facilities Specialist Name Role Phone Rebeca Cortes NP Primary Care Provider [phone] Alireza Modi MD Unavailable [phone] Allergies No known active allergies Medications chlorthalidone [...] Type Department Care Team Description 11/09/[address] [facility] Orthopedics and Sports Medicine [address] [place] [address] [address] [place] [phone] Jasmin Lema MA 11/08/2024 9:45 AM ENGINE LATHE TENDER Office Visit [facility] Orthopedics and Sports Medicine [address] [place] [address] [address] [place] [phone] Alireza Modi MD Left hip pain (Primary Dx); Primary osteoarthritis of left hip 11/08/2024 7:42 AM ENGINE LATHE TENDER - 11/08/2024 11:59 PM ENGINE LATHE TENDER Hospital Encounter [facility] Orthopedics and Sports Medicine [address] [facility] [address] [place] [phone] Discharge Disposition: Discharge to home [...] 35.5 C (95.9 F) 01/10/2024 7:10 AM ENGINE LATHE TENDER Respiratory Rate 18 01/10/2024 7:10 AM ENGINE LATHE TENDER Oxygen Saturation 91% 01/10/2024 7:10 AM ENGINE LATHE TENDER Inhaled Oxygen Concentration - - Weight 93 kg (205 lb) 11/08/2024 9:36 AM ENGINE LATHE TENDER Height 176.5 cm (5' 9.5 ) 11/08/2024 9:36 AM ENGINE LATHE TENDER Body Mass Index 29.84 11/08/2024 9:36 AM ENGINE LATHE TENDER Plan of Treatment Health Maintenance Due Date [...] 01/10/2025 01/10/2024 Medical Devices Implanted Type Area Dinker Device Identifier Shelf Expiration Date Model / Serial / Lot [employer] [place] 60mm Sector Hip Shell Acetabular Gription Sterile Latex Free [id number] - [id number] Implanted:Qty: 1 on 01/09/2024 by Alireza Modi MD at [facility] Right: Hip [employer] 09/27/2033 [id number] / / [id number] [employer] [place] 60mm 36mm Hip Neutral Liner Acetabular Altrx Sterile Latex Free [id number] - [id number] Implanted:Qty: 1 on 01/09/2024 by Alireza Modi MD at [facility] Right: Hip [employer] 08/27/2028 [id number] / / [id number] [employer] [place] 6.5mm 35mm Acetabular Cancellous Screw Bone Sterile 1217-35-500 - [id number] Implanted:Qty: 1 on 01/09/2024 by Alireza Modi MD at [facility] Right: Hip [employer] 09/27/2033 1217-35-500 / / [id number] [employer] [place] 6.5mm 35mm Acetabular Cancellous Screw Bone Sterile 1217-35-500 - [id number] Implanted:Qty: 1 on 01/09/2024 by Alireza Modi MD at [facility] Right: Hip [employer] 07/28/2033 1217-35-500 / / [id number] [employer] Articul/Law 36mm Cementless Hip +8.5mm 11/10 Taper Head Femoral Latex Free 1365-36-330 - [id number] Implanted:Qty: 1 on 01/09/2024 by Alireza Modi MD at [facility] Right: Hip [employer] 08/27/2028 1365-36-330 / / [id number] [employer] Stem Femoral Hip Porous Proximal Collared Actis Titanium High Offset Size 12 [id number] - Sna - [id number] Implanted:Qty: 1 on 01/09/2024 by Alireza Modi MD at [facility] Right: Hip [employer] C1776 05/27/2026 [id number] / NA / [id number] Procedures Procedure Name Priority Date/Time Associated Diagnosis Comments XR HIP LEFT 2 OR 3 VIEWS Schedule Routine, Read Routine (OP Routine) 11/08/2024 9:45 AM ENGINE LATHE TENDER Left hip pain from Last 3 Months Results * XR Hip Left 2 or 3 Views (11/08/2024 9:45 AM ENGINE LATHE TENDER) Anatomical Region Laterality Modality Lower Extremities, Hip, Pelvis Left D igital Radiography Narrative 11/08/2024 1:03 PM ENGINE LATHE TENDER Severe left hip osteoarthritis with jshh-sv-feid contact, osteophyte formation, subluxation. Appropriately placed right total hip arthroplasty without interval change noted. Alireza Modi MD IMG XR PROCEDURES Final Result from Last 3 Months Insurance MEDICARE Member Subscriber Plan / Payer (Ef fective 2024-Present) Name:Eric Sarmiento Member ID:[id number] Relation to Subscriber:Self Name:Eric Sarmiento Subscriber ID:[id number] Payer ID:[id number] Group ID:Not on file Type:MEDICARE TRADITIONAL Address: [address] [address] [place] [address] MEDICARE Advance Directives For more information, please contact: [phone] * Full Code (Latest Code Status on File) Date Activated Date Inactivated Comments 01/09/2024 2:48 PM 01/10/2024 4:25 PM Care Teams Facilities Specialist Relationship Specialty Start Date End Date Rebeca Cortes NP [address] [place] [address] PCP - General Nurse Practitioner 08/28/20 Alireza Modi MD [address] [place] [address] [place] [address] Surgeon Orthopedic Surgery 01/10/24
== END 2025-01-07 15:08 | disposition home or self-care (01) ==
PROVIDERS: PCP Nurse Practitioner Family; Visit Provider Orthopaedic Surgery
DX: Z01.818 Encounter for other preprocedural examination (principal); M25.552 Pain in left hip; I44.4 Left anterior fascicular block; R94.31 Abnormal electrocardiogram [ECG] [EKG]
CPT/HCPCS: 71046; 93005

== ENCOUNTER 2025-02-28 13:01 | Outpatient (CLI) | payer MEDICARE, MEDICAID, SELFPAY ==
--- NOTE | ~2025-02-28 | US_ITS ---
EXAMINATION:US venous doppler LE LT INDICATION:Status post left hip arthroplasty TECHNIQUE: Multiple grayscale, color flow and Doppler images of the left lower extremity deep venous systems were obtained and reviewed. COMPARISON:No prior studies for comparison. FINDINGS: The common femoral, superficial femoral and popliteal veins demonstrate normal respiratory variation, augmentation and compressibility. Color flow is also seen within the posterior tibial, pe roneal, greater saphenous and profunda veins. There are normal. Left inguinal lymph nodes. IMPRESSION: 1: No lower extremity deep venous thrombosis. Reviewed, dictated and finalized at location A.
--- OUTSIDE RECORDS SUMMARY | 2025-02-28 13:18 | XMS_ITS | Encounter Summary ---
Author Organization [facility] Healthcare Address [address] [place] [address] Care Team Providers Care [facility] Field Coordinator Name Role Phone Rebeca Cortes AREA DEVELOPMENT MANAGER Primary Care Provider [phone] Alireza Modi MD Unavailable [phone] Pedro Rosado OT Unavailable Unavailable Encounter Details Date Type Department Care Team (Late st Contact Info) Description 02/27/2025 Telephone [facility] Medical Group Orthopedics and Sports Medicine [address] [place] [address] [address] [place] [address] Arabella Benjamin PA [address] [place] [address] [address] [place] [address] Social History Tobacco Use Types Packs/Day Years Used Date Smoking Tobacco: Former Cigarettes Q uit: 12/30/2023 Smokeless Tobacco: Never Alcohol Use Standard Drinks/Week Comments Yes 0 (1 standard drink = 0.6 oz pur e alcohol) AUDIT-C Answer Date Recorded Q1: How often do you have a drink containing alc ohol? 2-4 times a month 01/28/2025 Q2: How many drinks containi ng alcohol do you have on a typical day when you are drinking? 3 or 4 01/28/2025 Q3: How often do you have si x or more drinks on one occasion? Less than monthly 01/28/2025 PHQ-2 Answer Date Recorded PHQ-2 Total Score (If total score is 3 or more points, staff should administer the PHQ-9) 0 01/09/2024 Personal Safety Answer Date Recorded Have you ever been in or are you currently in a harmful physical or emotional relationship or is someone making you feel afraid or unsafe? Denies 01/28/2025 Sex and Gender Information Value Date Recorded Sex Assigned at Not on file Legal Sex Male 10:32 AM CDT Gender Identity Not on file Sexual Orientation Not on file documented as of this encounter Miscellaneous Notes * Telephone Encounter - Laverne Perez MA - 02/27/2025 4:48 PM CDT Appt made for venous doppler-Stat for February 28, 2025 at 1:00pm for [facility]. Mine informed. * Telephone Encounter - Lila Shetty - 02/27/2025 4:33 PM CDT Talked with Mine () Jono is working on getting the ultrasound set up . Mine asked if this can be done at [facility]. We will check and call patient . * Telephone Encounter - Arabella Benjamin PA - 02/27/2025 4:21 PM CDT Although swelling is a normal part of the postoperative course, I think it would be best to get an ultrasound to rule out DVT. If this returns negative, the patient should continue with aggressive ice, elevation, and can resume use of compression stockings to help minimize swelling. * Telephone Encounter - Thao Stout - 02/27/2025 3:52 PM CDT Images from the original note were not included. Patient called in and stated that patient is experiencing swelling and pain in his left foot and ankle following LTHA DOS 01/28/25. They just wanted Arabella to take a look at some pictures and let them know if this is normal. Pictures being sent to [facility] phone - image attached. documented in this encounter Plan of Treatment Not on file documented as of this encounter Visit Diagnoses Not on filedocumented in this encounter Care Teams [facility] Field Coordinator Relationship Specialty Start Date End Date Rebeca Cortes NP [address] [place] [address] PCP - General Nurse Practitioner 08/28/20 Alireza Modi MD [facility] [address] [address] Surgeon Orthopedic Surgery 01/10/24 Pdero Rosado OT Occupational Therapist Occupational Therapy 01/24/25 documented as of this encounter
--- OUTSIDE RECORDS SUMMARY | 2025-02-28 13:18 | XMS_ITS | Referral Summary ---
Author Organization [facility] Medical Office Building B Address [address] [place] [address] Care Team Providers Care Drier Attendant Name Role Phone Rebeca Cortes NP Primary Care Provider [phone] Alireza Modi MD Unavailable [phone] Pedro Rosado OT Unavailable Unavailable Encounters Date Type Department Care Team Description 02/27/2025 Orders Only [facility] Medical [facility] [address] [place] [address] [address], [place] [address] Arabella Benjamin PA S/P total left hip arthroplasty (Primary Dx); Swelling of limb 02/27/2025 Telephone [facility] [address] [place] [address] [address] [phone] Arabella Benjamin PA 02/20/2025 Telephone [facility] [address] [place] [address] [address] [phone] Arabella Benjamin PA 02/19/2025 11:45 AM CDT Telemedicine [facility] [address] [place] [address], [place] [address] Arabella Benjamin PA Aftercare following left hip joint replacement surgery (Primary Dx) 02/08/2025 Telephone [facility] [address] [place] [address] [address] [address] Lety Olivo NP 02/08/2025 Telephone [facility] Medical [facility] [address] [place] [address] [address] [place] [address] Alireza Modi MD 01/28/2025 11:40 AM GROOMING SALON MANAGER - 01/29/2025 12:01 PM GROOMING SALON MANAGER Hospital Encounter [facility] Surgery Care [address] [place] [address] Alireza Modi MD Primary osteoarthritis of left hip Discharge Disposition: Discharge to home or self care 01/28/2025 2:20 PM GROOMING SALON MANAGER - 01/28/2025 4:45 PM GROOMING SALON MANAGER Surgery [facility] Operating Room [address] [place] [address] Alireza Modi MD Left Total Hip Arthroplasty- Anterior Approach, Depuy- Actis 01/28/2025 12:31 PM GROOMING SALON MANAGER Anesthesia Event [facility] Operating Room [address] [place] [address] Keagan Galindo MD Kory, Christopher James, MD 01/22/2025 Documentation [facility] Medical [facility] [address] [place] [address] [address] [facility] [place] [address] Jasmin Lema MA Surgical Clearance 01/14/2025 Telephone [facility] [address] [place] [address] [place] [address] Alireza Modi MD Surgery Date from Last 3 Months Allergies No known active allergies Medications chlorthalidone 25 mg tablet Take 1 tablet (25 mg total) by mouth daily 08/19/20 Active metFORMIN (GLUCOPHAGE) 1,000 mg tablet Take 1 tablet (1,000 mg total) by mouth daily with breakfast 08/19/20 Active lisinopriL (PRINIVIL,ZESTRIL) 40 mg tablet Take 1 tablet (40 mg total) by mouth daily 08/19/20 Active albuterol HFA (PROVENTIL HFA,VENTOLIN HFA,PROAIR HFA) 90 mcg/actuation inhaler Inhale 2 puffs every 4 (four) hours as needed 08/19/20 23 Active pravastatin (PRAVACHOL) 10 mg tablet Take 1 tablet (10 mg total) by mouth daily 11/14/20 23 Active Breztri Aerosphere 160-9-4.8 mcg/actuation inhaler Inhale 2 puffs 2 (two) times a day 01/14/20 25 Active tiZANidine (ZANAFLEX) 2 mg tablet TAKE 1 TABLET BY MOUTH THREE TIMES DAILY NEEDED FOR MUSCLE SPASTICITY 01/03/20 25 Active ascorbic acid (VITAMIN C) 500 mg tablet,chewableInd ications:Vitamin deficiency prevention Take 1 tablet/chew tab (500 mg total) by mouth daily 30 tablet/chew tab 01/30/20 25 Active aspirin 81 mg enteric coated tabletIndications: Deep Vein Thrombosis Prevention Take 1 tablet (81 mg total) by mouth 2 (two) times a day 84 tablet 01/30/20 25 025 Active celecoxib (CeleBREX) 200 mg capsuleIndications :Pain Take 1 capsule (200 mg total) by mouth 2 (two) times a day 84 capsule 01/30/20 25 025 Active ferrous sulfate 325 mg (65 mg of elemental iron) tabletIndications: Iron Deficiency Anemia,Anemia prevention Take 1 tablet (325 mg total) by mouth daily with breakfast 30 tablet 01/30/20 25 025 Active ondansetron ODT (ZOFRAN-ODT) 4 mg disintegrating tabletIndications: nausea and vomiting Take 1 tablet (4 mg total) by mouth every 6 (six) hours as needed for nausea or vomiting 20 tablet 2 01/30/20 25 Active senna-docusate (PERICOLACE) 8.6-50 mgIndications:cons tipation Take 2 tablets by mouth 2 (two) times a day 60 tablet 2 01/30/20 25 Active oxyCODONE-acetamin ophen (PERCOCET) 5-325 mg per tabletIndications: Pain Take 1 tablet by mouth every 4 (four) hours as needed for pain 40 tablet 02/09/20 25 Active oxyCODONE-acetamin ophen (PERCOCET) 5-325 mg per tabletIndications: Pain Take 1 tablet by mouth every 4 (four) hours as needed for pain 40 tablet 01/30/20 25 025 Discontin ued(Reord er) Active Problems Problem Noted Date Diagnosed Date Aftercare following left hip joint replacement s urgery 02/19/2025 Aftercare following right hip joint replacement surgery 02/23/2024 Resolved Problems Problem Noted Date Diagnosed Date Resolved Date Primary osteoarthritis of left hip 01/17/2025 02/19/2025 Primary osteoarthritis of right hip 09/08/2023 02/23/2024 Social History Tobacco Use Types Packs/Day Years Used Date Smoking Tobacco: Former Cigarettes Q uit: 12/30/2023 Smokeless Tobacco: Never Tobacco Cessation:Counseling Given: Not Answered Alcohol Use Standard Drinks/Week Comments Yes 0 [...] Sign Reading Time Taken Comments Blood Pressure 129/81 01/29/2025 7:08 AM GROOMING SALON MANAGER Pulse 78 01/29/2025 7:08 AM GROOMING SALON MANAGER Temperature 36.2 C (97.2 F) 01/29/2025 7:08 AM GROOMING SALON MANAGER Respiratory Rate 16 01/29/2025 7:08 AM GROOMING SALON MANAGER Oxygen Saturation 93% 01/29/2025 7:08 AM GROOMING SALON MANAGER Inhaled Oxygen Concentration - - Weight 93 kg (205 lb 0.4 oz) 01/28/2025 11:54 AM GROOMING SALON MANAGER Height 177.8 cm (5' 10 ) 01/28/2025 11:54 AM GROOMING SALON MANAGER Body Mass Index 29.42 01/28/2025 11:54 AM GROOMING SALON MANAGER Plan of Treatment Not on file Medical Devices Implanted Type Area Debarker Operator Device Identifier Shelf Expiration Date Model / Serial / Lot [employer] [place] 60mm Sector Hip Shell Acetabular Gription Sterile Latex Free [id number] - [id number] Implanted:Qty: 1 on 01/09/2024 by Alireza Modi MD at [facility] Right: Hip [employer] 09/27/2033 [id number] / / [id number] [employer] [place] 60mm 36mm Hip Neutral Liner Acetabular Altrx Sterile Latex Free [id number] - [id number] Implanted:Qty: 1 on 01/09/2024 by Alireza Modi MD at [facility] Right: Hip [employer] 08/27/2028 [id number] / / [id number] [employer] [place] 6.5mm 35mm Acetabular Cancellous Screw Bone Sterile 1217-35-500 - [id number] Implanted:Qty: 1 on 01/09/2024 by Alireza Modi MD at [facility] Right: Hip [employer] 09/27/2033 1217-35-500 / / [id number] [employer] [place] 6.5mm 35mm Acetabular Cancellous Screw Bone Sterile 1217-35-500 - [id number] Implanted:Qty: 1 on 01/09/2024 by Alireza Modi MD at [facility] Right: Hip [employer] 07/28/2033 1217-35-500 / / [id number] [employer] Articul/Law 36mm Cementless Hip +8.5mm 11/10 Taper Head Femoral Latex Free 1365-36-330 - [id number] Implanted:Qty: 1 on 01/09/2024 by Alireza Modi MD at [facility] Right: Hip [employer] 08/27/2028 1365-36330 / / [id number] [employer] Stem Femoral Hip Porous Proximal Collared Actis Titanium High Offset Size 12 [id number] - Sna - [id number] Implanted:Qty: 1 on 01/09/2024 by Alireza Modi MD at [facility] Right: Hip [employer] [id number] 05/27/2026 [id number] / NA / [id number] [employer] [place] 6.5mm 40mm Acetabular Cancellous Screw Bone Sterile [id number] - [id number] Implanted:Qty: 1 on 01/28/2025 by Alireza Modi MD at [facility] Left: Hip [employer] [id number] 04/27/2033 [id number] / / [id number] [employer] [place] 6.5mm 30mm Acetabular Cancellous Screw Bone Revision - [id number] Implanted:Qty: 1 on 01/28/2025 by Alireza Modi MD at [facility] Left: Hip [employer] [id number] 04/27/2033 / / [id number] [employer] Stem Femoral Hip Porous Proximal Collared Actis Titanium High Offset Size 12 [id number] - [id number] Implanted:Qty: 1 on 01/28/2025 by Alireza Modi MD at [facility] Left: Hip [employer] [id number] 08/27/2033 [id number] / / [id number] [employer] Articul/Law 36mm Cementless Hip +8.5mm 12/14 Taper Head Femoral Latex Free 1363-36330 - [id number] Implanted:Qty: 1 on 01/28/2025 by Alireza Modi MD at [facility] Left: Hip [employer] [id number] 06/27/2029 1364-36330 / / [id number] [employer] [place] 60mm Sector Hip Shell Acetabular Gription Sterile Latex Free [id number] - [id number] Implanted:Qty: 1 on 01/28/2025 by Alireza Modi MD at [facility] Left: Hip [employer] [id number] 10/27/2034 [id number] / / [id number] [employer] [place] 60mm 36mm Hip Neutral Liner Acetabular Altrx Sterile Latex Free [id number] - [id number] Implanted:Qty: 1 on 01/28/2025 by Alireza Modi MD at [facility] Left: Hip [employer] [id number] 11/27/2029 [id number] / / [id number] [employer] [place] 6.5mm 40mm Acetabular Cancellous Screw Bone Sterile [id number] - [id number] Implanted:Qty: 1 on 01/28/2025 by Alireza Modi MD at [facility] Left: Hip [employer] [id number] 04/27/2034 [id number] / / [id number] Procedures Procedure Name Priority Date/Time Associated Diagnosis Comments POCT GLUCOSE DEVICE Routine 01/29/2025 7 :44 AM GROOMING SALON MANAGER POCT GLUCOSE DEVICE Routine 01/29/2025 7 :07 AM GROOMING SALON MANAGER EGFR Routine 01/29/2025 3:11 AM GROOMING SALON MANAGER CBC WITHOUT DIFFERENTIAL Routine 01/29/2025 3:11 AM GROOMING SALON MANAGER BASIC METABOLIC PANEL Routine 01/29/2025 3:11 AM GROOMING SALON MANAGER POCT GLUCOSE DEVICE Routine 01/29/2025 2 :44 AM GROOMING SALON MANAGER POCT GLUCOSE DEVICE Routine 01/28/2025 8 :45 PM GROOMING SALON MANAGER POCT GLUCOSE DEVICE Routine 01/28/2025 4 :09 PM GROOMING SALON MANAGER XR PELVIS ORTHO VIEW ED Urgent/IP Urgent 01/28/2025 2:37 PM GROOMING SALON MANAGER POCT GLUCOSE DEVICE Routine 01/28/2025 2 :30 PM GROOMING SALON MANAGER XR HIP LEFT 1 VIEW IP Routine 01/28/2025 1: 55 PM GROOMING SALON MANAGER FL FLUOROSCOPY < 1 HOUR IP Routine 01/28/2025 1:55 PM GROOMING SALON MANAGER ANESTHESIA SPINAL BLOCK Routine 01/28/2025 12:41 PM GROOMING SALON MANAGER ARTHROPLASTY TOTAL HIP - ANTERIOR APPROACH 01/28/2025 12:11 PM GROOMING SALON MANAGER Primary osteoarthritis of left hip Special Needs Anterior Approach, Depuy- Actis , Omnitrac, Aquamantys, 1 Liter Beta Rinse, Pt to stay POTASSIUM, WHOLE BLOOD STAT 01/28/2025 12:10 PM GROOMING SALON MANAGER PROTIME-INR STAT 01/28/2025 12:10 PM GROOMING SALON MANAGER APTT STAT 01/28/2025 12:10 PM GROOMING SALON MANAGER POCT GLUCOSE DEVICE Routine 01/28/2025 11:59 AM GROOMING SALON MANAGER SURGICAL PATHOLOGY Routine 01/28/2025 10:24 AM GROOMING SALON MANAGER Primary osteoarthritis of left hip from Last 3 Months Results * POCT glucose (01/29/2025 7:44 AM GROOMING SALON MANAGER) Glucose, POC 135 70 - 199 mg/dL Blood 01/29/2025 7:44 AM GROOMING SALON MANAGER 01/29/2025 7:44 AM GROOMING SALON MANAGER us Alireza Modi MD LAB POCT ORDERABLES - DE VICE Final Result Performing Organization Address [facility] Co de Phone Number [facility] (SOLDIER) [address] [place] [address] [place] [address] * POCT glucose (01/29/2025 7:07 AM GROOMING SALON MANAGER) Glucose, POC 132 70 - 199 mg/dL Blood 01/29/2025 7:07 AM GROOMING SALON MANAGER 01/29/2025 7:07 AM GROOMING SALON MANAGER us Alireza Modi MD LAB POCT ORDERABLES - DE VICE Final Result Performing Organization Address City/[facility] Co de Phone Number [facility] (SOLDIER) [address] [place] [address] [place] [address] * eGFR (01/29/2025 3:11 AM GROOMING SALON MANAGER) Pathologist [facility] eGFR >90 >=60 mL/min/1. 73 m2 Comment: Interpretive Data Reference Interval Normal >/= 90 mL/min/1.73m2 Mildly decreased* 60 - 89 mL/min/1.73m2 Mildly to moderately decreased 45 - 59 mL/min/1.73m2 Moderately to severely decreased 30 - 44 mL/min/1.73m2 Severely decreased 15 - 29 mL/min/1.73m2 Kidney Failure < 15 mL/min/1.73m2 *Relative to young adult level Estimated glomerular filtration rate is determined by the 2020 CKD-EPI equation recommended by the National Kidney Foundation (A Unifying Approach to GFR Estimation: Recommendations of the NKF-ASK Task Force on Reassessing the Inclusion of Race in Diagnosing Kidney Disease, JASN 2020). The CKD-EPI equation should not be used for patients with unstable renal function and has not been validated in children and those over 70. Current interpretive data was last reviewed 2021. Blood 01/29/2025 3:11 AM GROOMING SALON MANAGER 01/29/2025 4:00 AM GROOMING SALON MANAGER us Arabella BLANCO LAB BLOOD ORDERABLES Final Result NEENA [facility] (SOLDIER) 1 [facility] Department [place] [address] * (ABNORMAL) CBC without differential (01/29/2025 3:11 AM GROOMING SALON MANAGER) Pathologist [facility] WBC 6.0 3.8 - 9.9 K/cumm Hgb 9.3(L) 13.0 - 17.5 g/dL [facility] (NEIL) Hct 27.1(L) 38.9 - 50.3 % [facility] ([place]IL) Plt 149(L) 150 - 400 K/cumm [facility] ([facility] MPV 10.1 9.1 - 12.3 fL [facility] ([facility] RBC 2.82(L) 4.30 - 5.80 M/cumm [facility] ([facility] MCV 96.1 81.3 - 96.4 fL [facility] ([facility] MCH 33.0 27.1 - 33.3 pg [facility] (NEIL) MCHC 34.3 32.3 - 35.7 g/dL [facility] (NEIL) RDW CV 12.8 11.1 - 14.9 % [facility] (NEIL) RDW SD 45.1 35.7 - 48.1 fL [facility] ([facility] NRBC abs 0.00 0.00 - 0.01 K/cumm [facility] (NEIL) Blood 01/29/2025 3:11 AM GROOMING SALON MANAGER 01/29/2025 4:00 AM GROOMING SALON MANAGER us Arabella BLANCO LAB BLOOD ORDERABLES Final Result [facility] ([place]IL) 1 [facility] Department [place] [address] * (ABNORMAL) Basic metabolic panel (01/29/2025 3:11 AM GROOMING SALON MANAGER) Sodium 136 135 - 145 mmol/L Potassium, pl 3.7 3.3 - 4.9 mmol/L [facility] ([facility] Chloride 105 97 - 110 mmol/L [facility] ([facility] CO2 21(L) 22 - 32 mmol/L [facility] (NEIL) Anion gap 11 2 - 15 mmol/L [facility] ([place]IL) BUN 22 6 - 25 mg/dL [facility] ([facility]) Creatinine 0.90 0.80 - 1.30 mg/dL [facility] ([facility]) Glucose 141 70 - 199 mg/dL [facility] ([facility]) Comment: Interpretive Data Fasting glucose >/= 126 mg/dl is diagnostic for diabetes. Fasting is defined as no caloric intake for at least 8 hours. Fasting glucose between 100 mg/dl to 125 mg/dl is diagnostic of prediabetes. In a patient with classic symptoms of hyperglycemia or hyperglycemic crisis, a random glucose >/= 200 mg/dl is diagnostic for diabetes. In the absence of unequivocal hyperglycemia, results should be confirmed by repeat testing. The classification and Diagnosis of Diabetes Diabetes Care 2021; 46: S19-S40. Current interpretive data was last revised 2022. Calcium 8.1(L) 8.5 - 10.3 mg/dL NEENA YOUNG (NEIL) Blood 01/29/2025 3:11 AM GROOMING SALON MANAGER 01/29/2025 4:00 AM GROOMING SALON MANAGER us Arabella BLANCO LAB BLOOD ORDERABLES Final Result Performing Organization Address City/[facility]/ZIP Co de Phone Number NEENA YOUNG (SOLDIER) [address] [facility] [place] [address] * POCT glucose (01/29/2025 2:44 AM GROOMING SALON MANAGER) Glucose, POC 156 70 - 199 mg/dL Blood 01/29/2025 2:44 AM GROOMING SALON MANAGER 01/29/2025 2:44 AM GROOMING SALON MANAGER us Alireza Modi MD LAB POCT ORDERABLES - DE VICE Final Result Performing Organization Address [facility]/ZIP Co de Phone Number NEENA YOUNG (SOLDIER) [address] [facility] [place] [address] * POCT glucose (01/28/2025 8:45 PM GROOMING SALON MANAGER) Glucose, POC 179 70 - 199 mg/dL Blood 01/28/2025 8:45 PM GROOMING SALON MANAGER 01/28/2025 8:45 PM GROOMING SALON MANAGER us Alireza Modi MD LAB POCT ORDERABLES - DE VICE Final Result Performing Organization Address City/[facility]/ZIP Co de Phone Number NEENA YOUNG (NEIL) [address] [facility] [place] [address] * POCT glucose (01/28/2025 4:09 PM GROOMING SALON MANAGER) Glucose, POC 157 70 - 199 mg/dL Blood 01/28/2025 4:09 PM GROOMING SALON MANAGER 01/28/2025 4:09 PM GROOMING SALON MANAGER us Alireza Modi MD LAB POCT ORDERABLES - DE VICE Final Result [facility] (NEIL) 1 [facility] Department [place] [address] * XR Pelvis Ortho View (01/28/2025 2:37 PM GROOMING SALON MANAGER) Anatomical Region Laterality Modality Body, Pelvis N/A Computed Radiogr aphy 01/28/2025 2:52 PM GROOMING SALON MANAGER Narrative 01/28/2025 2:53 PM GROOMING SALON MANAGER EXAM DESCRIPTION: XR PELVIS ORTHO VIEW REASON FOR STUDY: procedure POST OP TECHNIQUE: Single radiographic view(s) of the pelvis . COMPARISON: 01/09/2024 FINDINGS: There are postsurgical changes of left hip arthroplasty noted. There is no definite evidence of an unexpected radiopaque foreign body or fracture. There is subcutaneous emphysema noted, which is expected for postsurgical status. Postsurgical changes right hip arthroplasty are again noted. There are degenerative changes bilateral sacroiliac joints with joint space narrowing and mild sclerosis. IMPRESSION: Postsurgical changes left hip arthroplasty are noted without definite evidence of an unexpected radiopaque foreign body or fracture. THIS IS AN ELECTRONICALLY VERIFIED FINAL REPORT 01/28/2025 2:53 PM - Electronically signed by Shanae Patel D.O. PS: PS Report ID: [id number] Reading Location: [place] [address] Procedure Note Shanae Patel DO - 01/28/2025 EXAM DESCRIPTION: XR PELVIS ORTHO VIEW REASON FOR STUDY: procedure POST OP TECHNIQUE: Single radiographic view(s) of the pelvis . COMPARISON: 01/09/2024 FINDINGS: There are postsurgical changes of left hip arthroplasty noted. There isno definite evidence of an unexpected radiopaque foreign body or fracture.There is subcutaneous emphysema noted, which is expected for postsurgicalstatus. Postsurgical changes right hip arthroplasty are again noted. There are degenerative changes bilateral sacroiliac joints with joint spacenarrowing and mild sclerosis. IMPRESSION: Postsurgical changes left hip arthroplasty are noted without definite evidence of an unexpected radiopaque foreign body or fracture. THIS IS AN ELECTRONICALLY VERIFIED FINAL REPORT 01/28/2025 2:53 PM - Electronically signed by Shanae Patel D.O. PS: PS Report ID: [id number] Reading Location: [id number] Alireza Modi MD IMG XR PROCEDURES Final Result * POCT glucose (01/28/2025 2:30 PM GROOMING SALON MANAGER) Glucose, POC 148 70 - 199 mg/dL Blood 01/28/2025 2:30 PM GROOMING SALON MANAGER 01/28/2025 2:30 PM GROOMING SALON MANAGER Alireza Modi MD LAB POCT ORDERABLES - DE VICE Final Result Performing Organization Address [facility]/ZIP Co de Phone Number [facility] ([address] Department of Laboratories [place] [phone] * FL Fluoroscopy < 1 Hour (01/28/2025 1:55 PM GROOMING SALON MANAGER) Narrative [facility] - 01/28/2025 1:56 PM GROOMING SALON MANAGER The images from this study are not interpreted by Radiology. Please refer to the physician's procedure / OR operative note. Alireza Modi MD IMG FLUOROSCOPY PROCEDUR ES Final Result Performing Organization Address [facility] Co de Phone Number [facility] * XR Hip Left 1 View (01/28/2025 1:55 PM GROOMING SALON MANAGER) Anatomical Region Laterality Modality Lower Extremities, Hip, Pelvis Left R adio Fluoroscopy 01/28/2025 5:09 PM GROOMING SALON MANAGER Narrative 01/28/2025 5:11 PM GROOMING SALON MANAGER EXAM DESCRIPTION: XR HIP LEFT 1 VIEW REASON FOR STUDY: osteoarthritis Left Hip Fl Time- 12.6 seconds Dose- 1.56 mGy TECHNIQUE: Fluoroscopic assistance provided for left hip procedure. One view provided. Fluoroscopic dose scratch the radiation does 0.16735 mGy meters squared cumulative air kerma. COMPARISON: Radiographs the same day. FINDINGS: Imaging sequential steps for hip arthroplasty. IMPRESSION: Fluoroscopic assistance provided for left hip arthroplasty. THIS IS AN ELECTRONICALLY VERIFIED FINAL REPORT 01/28/2025 5:11 PM - Electronically signed by Cassius Hudson M.D. CH: Report ID: [id number] Reading Location: [id number] Procedure Note Cassius Hudson Jr., MD - 01/28/2025 EXAM DESCRIPTION: XR HIP LEFT 1 VIEW REASON FOR STUDY: osteoarthritis Left Hip Fl Time- 12.6 seconds Dose- 1.56 mGy TECHNIQUE: Fluoroscopic assistance provided for left hip procedure. Oneview provided. Fluoroscopic dose scratch the radiation does 0.41899 mGy meters squared cumulative air kerma. COMPARISON: Radiographs the same day. FINDINGS: Imaging sequential steps for hip arthroplasty. IMPRESSION: Fluoroscopic assistance provided for left hip arthroplasty. THIS IS AN ELECTRONICALLY VERIFIED FINAL REPORT 01/28/2025 5:11 PM - Electronically signed by Cassius Hudson M.D. CH: Report ID: [id number] Reading Location: [id number] Alireza Modi MD IMG XR PROCEDURES Final Result * Spinal Block (01/28/2025 12:41 PM GROOMING SALON MANAGER) Narrative Jose Dias CRNA - 01/28/2025 12:41 PM GROOMING SALON MANAGER Jose Dias CRNA 01/28/2025 12:41 PM Spinal Block Patient location: OR End time: 01/28/2025 12:37 PM Reason for block: primary anesthetic Staff: Placed by: INSURANCE AND FINANCIAL SERVICES AGENT:Jose Dias CRNA Procedure prep: Preprocedure checklist: patient identified, procedure contraindications assessed, site marked, procedure consent, surgical consent, IV checked, risks, benefits and alternatives discussed, monitors and equipment checked and timeout performed Patient position: sitting Procedure performed while patient: sedate with meaningful contact Monitoring: oximetry and blood pressure Supplemental O2: nasal cannula Prep solution: chlorhexadine/alcohol PPE: provider hat/mask, sterile gloves and sterile drape Skin infiltrated with lidocaine 1%: yes Spinal: Approach: midline Introducer used: no Location: L3-4 Spinal injection: CSF demonstrated Number of attempts: 1 Spinal Needle: Needle type: Quincke Needle gauge: 22 G Needle length: 9 cm Assessment: Sensory deficit - left: T8 Sensory deficit - right: T8 Events: patient tolerated procedure well with no complications Keagan Galindo MD ANESTHESIA ORDERABLES Fi nal Result * Potassium, whole blood (01/28/2025 12:10 PM GROOMING SALON MANAGER) Potassium, bld 4.0 3.3 - 4.9 mmol/L Comment: Interpretive Data This method is not able to assess for hemolysis, which may falsely increase potassium concentrations. If further testing is needed to evaluate this result, consider in-laboratory plasma potassium. Current Interpretive Data was last revised on 2022. Blood 01/28/2025 12:1 0 PM GROOMING SALON MANAGER 01/28/2025 12:15 PM GROOMING SALON MANAGER Keagan Galindo MD LAB BLOOD ORDERABLES Fin al Result Performing Organization Address City/[facility] Co de Phone Number NEENA YOUNG Pinstant KarmaSOLDIER) [address] [place] [address] [place] [address] * aPTT (01/28/2025 12:10 PM GROOMING SALON MANAGER) aPTT 32 28 - 38 sec NEENA [facility] (SOLDIER) Comment: Interpretive Data Heparin therapeutic range: 66.0 - 100.0 seconds. Range based on correlation with therapeutic heparin activity range of 0.3 - 0.7 Units/mL. Current interpretive data was last revised on 2023. Blood 01/28/2025 12:1 0 PM GROOMING SALON MANAGER 01/28/2025 12:15 PM GROOMING SALON MANAGER Alireza Modi MD LAB BLOOD ORDERABLES Fin al Result Performing Organization Address City/[facility] Co de Phone Number NEENA YOUNG (SOLDIER) [address] [facility] [place] [address] * Protime-INR (01/28/2025 12:10 PM GROOMING SALON MANAGER) PT 11.2 9.7 - 13.0 sec [facility] ([place]) INR 1.04 0.90 - 1.20 [facility] ([place]) Comment: Interpretive data Oral anticoagulant therapeutic ranges: Venous thromboembolism prophylaxis or treatment: 2.0-3.0 CARDIOLOGY Standard range: 2.0-3.0 High-intensity range: 2.5-3.5 Refer to indication-specific guidelines for appropriate target ranges for prosthetic heart valve replacement. Current interpretive data was last revised on 2019. Blood 01/28/2025 12:1 0 PM GROOMING SALON MANAGER 01/28/2025 12:15 PM GROOMING SALON MANAGER Alireza Modi MD LAB BLOOD ORDERABLES Fin al Result Performing Organization Address City/[facility]/ZIP Co de Phone Number [facility] ([place]) [address] [place] [phone] * POCT glucose (01/28/2025 11:59 AM GROOMING SALON MANAGER) Glucose, POC 139 70 - 199 mg/dL Blood 01/28/2025 11:5 9 AM GROOMING SALON MANAGER 01/28/2025 11:59 AM GROOMING SALON MANAGER Alireza Modi MD LAB POCT ORDERABLES - DE VICE Final Result Performing Organization Address City/[facility] Co de Phone Number [facility] ([place]) [address] [place] [address] * Surgical pathology (01/28/2025 10:24 AM GROOMING SALON MANAGER) Tissue specimen (specimen) (Bone Fragment(s),) 01/28/2025 1:12 PM GROOMING SALON MANAGER Comment:Placed in formalin a fter procedure Narrative PATHOLOGY [facility] ([place]) - 02/01/2025 11:03 AM GROOMING SALON MANAGER EPIC results best viewed via link to PDF [facility] Department of Pathology [address] [place] [id number] Note to Patients: This report may contain a detailed description of human tissue sent by a health care provider to the laboratory for pathologic evaluation. The content of this report is essential for diagnosis and may provide important critical findings. This information may be unfamiliar to patients to review without a medical professional present. It is advised that the patient review this report in the presence of a health care provider who can answer questions and explain the details. Final Report Patient Name: YULIET SARMIENTO Address: [address] [place], [place] [id number] Gender: M : 1960 (Age: 64) Service: Surgery Location: [facility] Hospital #: [id number] Patient Type: [facility] OP in bed Taken: 01/28/2025 Received: 01/29/2025 Accessioned: 01/29/2025 Reported: 02/01/2025 Physician(s):Dr. Alireza Modi M.D. Diagnosis: Bone, left total hip arthroplasty - anterior approach: - Histologic changes consistent with degenerative joint disease. Gaston Kelly MD Report Electronically Reviewed and Signed Out By Gaston Kelly MD 02/01/2025 11:03:21 Specimen(s) Received: A: Left hip bone and tissue Microscopic Description: A decalcified section shows erosion and destruction of the articular cartilage. The marrow space appears fatty with focal hematopoietic marrow elements. There is no evidence of malignancy. The histologic changes are consistent with the clinical impression of degenerative joint disease. Clinical History: Osteoarthritis of left hip. Left total hip arthroplasty - anterior approach. Gross Description: The specimen is received in a single container labeled YULIET SARMIENTO and left hip . It is a 5.2 cm in diameter femoral head and separate 15 cc aggregate of rachel gritty hemorrhagic cortical and cancellous bone. The articular surface of the femoral head shows degenerative changes of the cartilage with erosion and eburnation. The femoral neck margin is smooth. The specimen is bisected revealing no subchondral gross lesions. Operations Support Analyst sections are submitted in one cassette after decalcification. Ragini Perez R.N., P.A./Pam Collins M.D. REPORT IMAGES AND SCANNED DOCUMENTS, IF INCLUDED, ONLY VIEWABLE IN PDF VERSION OF REPORT The performance characteristics of some immunohistochemical stains, fluorescence in-situ hybridization tests and immunophenotyping by flow cytometry cited in this report (if any) were determined by the Surgical Pathology Department at [facility] as part of an ongoing director quality systems program and in compliance with federally mandated regulations drawn from the Clinical Laboratory Improvement Act of 1988 (CLIA '88). Some of these tests rely on the use of analyte specific reagents and are subject to specific labeling requirements by the US Food and Drug Administration. Such diagnostic tests may only be performed in a facility that is certified by the Department of Health and Human Services as a high complexity laboratory under CLIA '88. The FDA has determined that such clearance or approval is not necessary. This test is used for clinical purposes. It should not be regarded as investigational or for research. Nevertheless, federal rules concerning the medical use of analyte specific reagents require that the following disclaimer be attached to the report: This test was developed and its performance characteristics determined by the Surgical Pathology Department [facility]. It has not been cleared or approved by the U. S. Food and Drug Administration. Note for decalcified specimens: This assay has not been validated on decalcified tissues. Results should be interpreted with caution given the possibility of false negativity on decalcified specimens Alireza Modi MD LAB PATHOLOGY ORDERABLES Final Result Performing Organization Address City/State/[facility] Co de Phone Number PATHOLOGY [facility] ([place]) [address] [place] [address] from Last 3 Months Insurance MEDICARE MEDICARE Advance Directives For more information, please contact: [phone] * Full Code (Latest Code Status on File) Date Activated Date Inactivated Comments 01/28/2025 3:44 PM 01/29/2025 4:06 PM * Full Code Date Activated Date Inactivated Comments 01/09/2024 2:48 PM 01/10/2024 4:25 PM Care Teams Drier Attendant Relationship Specialty Start Date End Date Rebeca Cortes NP [address] [place] [address] PCP - General Nurse Practitioner 08/28/20 Alireza Modi MD [address] [place] [address] [place] [id number] Surgeon Orthopedic Surgery 01/10/24 Pedro Rosado OT Occupational Therapist Occupational Therapy 01/24/25
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
--- OUTSIDE RECORDS SUMMARY | 2025-02-28 13:18 | XMS_ITS | Clinical Summary ---
Author Organization [facility] Address [address] [place] [address] Phone Care Team Providers Care Brisket Puller Name Role Phone Rebeca Cortes SOLAR SYSTEMS DESIGNER, DIXONAC OPERATOR Primary Care Provi harinder Hernán Allison APRN, DIXONAC OPERATOR Unavailable [phone] Allergies No known active allergies Medications albuterol [...] Department Care Team Description 01/07/2025 1:45 PM TODDLER NANNY Office Visit [facility] [address] [place] [address] Hernán Allison, SOLAR SYSTEMS DESIGNER, DIXONAC OPERATOR Urinary frequency (Primary Dx); Benign prostatic hyperplasia [...] Comments Blood Pressure 171/91 01/07/2025 1:46 PM TODDLER NANNY Pulse 91 01/07/2025 1:46 PM TODDLER NANNY Temperature - - Respiratory Rate 16 01/07/2025 1:46 PM TODDLER NANNY Oxygen Saturation 96% 06/26/2024 10:45 AM CDT Inhaled Oxygen Concentration - - Weight 98.9 kg (218 lb) 01/07/2025 1:46 PM TODDLER NANNY Height 180.3 cm (5' 11 ) 01/07/2025 1:46 PM TODDLER NANNY Body Mass Index 30.4 01/07/2025 1:46 PM TODDLER NANNY Plan of Treatment Health Maintenance Due Date [...] AUTOMATED W/O MICRO Routine 01/07/2025 1:50 PM TODDLER NANNY Urinary frequency from Last 3 Months Results * POCT UA AUTOMATED W/O MICRO (01/07/2025 1:50 PM TODDLER NANNY) POC UA SPECIFIC GRAVITY 1.015 URINE PH [...] mg/dL POC URINE BLOOD INSTRUMENT Negative Negative Crhis/uL POC URINE COLOR Yellow POC URINE CLARITY Clear 01/07/2025 1:50 PM TODDLER NANNY Hernán Allison SOLAR SYSTEMS DESIGNER, DIXONAC OPERATOR POINT OF CARE TESTING (MANUAL) Final Result from Last 3 Months Insurance MEDICARE [place]ICAID [place] Care Teams Brisket Puller Relationship Specialty Start Date End Date Rebeca Cortes APRN, DIXONAC OPERATOR [address] [place] [address] PCP - General Advanced Practice Nurse 05/07/24 Hernán Allison APRN, DIXONAC OPERATOR [address] [place] [address] Nurse Practitioner Advanced Practice Nurse 05/07/24
--- OUTSIDE RECORDS SUMMARY | 2025-02-28 13:18 | XMS_ITS | Encounter Summary ---
Author Organization [facility] Healthcare Address [address] [place] [address] Care Team Providers Care Division Operations Specialist Name Role Phone Rebeca Cortes MOLECULAR BIOLOGY PROFESSOR Primary Care Provider [phone] Alireza Modi MD Unavailable Pedro Rosado OT Unavailable Unavailable Reason for Referral * Diagnostic Imaging (Routine) - Authorized Specialty Diagnoses / Procedures Referred By Contac t Referred To Contact Diagnoses S/P total left hip arthroplasty Swelling of limb Procedures US VEIN DUPLEX LOWER EXTREMITY LEFT LIMITED, UNILATERAL Arabella Benjamin PA [address] [facility] [address] [place] [address] Phone: tel: fax: External Order Referral ID Status Reason Start Date Expiration Date V isits Requested Visits Authorized [id number] Authorized 02/27/2025 03/29/2026 1 1 Encounter Details Date Type Department Care Team (Late st Contact Info) Description 02/27/2025 Orders Only [facility] Orthopedics and Sports Medicine [address] [facility] [address] [place] [address] Arabella Benjamin PA [address] [facility] [address] [place] [address] S/P total left hip arthroplasty (Primary Dx); Swelling of limb Social History Tobacco Use Types Packs/Day Years [...] as of this encounter Plan of Treatment Scheduled Orders Name Type Priority Associated Diagnoses Orde r Schedule US VEIN DUPLEX LOWER EXTREMITY LEFT LIMITED, UNILATERAL Imaging Schedule NICOLE, Read NICOLE (Appt Today, Awaiting Results) S/P total left hip arthroplasty Swelling of limb Expected: 02/27/2025, Expires: 02/27/2026 documented as of this encounter Visit Diagnoses Diagnosis S/P total left hip arthroplasty- Primary Swelling of limb documented in this encounter Care Teams Division Operations Specialist Relationship Specialty Start Date End Date Rebeca Cortes NP [address] [place] [address] PCP - General Nurse Practitioner 08/28/20 Alireza Modi MD [address] [place] [address] [address] [place] [id number] Surgeon Orthopedic Surgery 01/10/24 Pedro Rosado OT Occupational Therapist Occupational Therapy 01/24/25 documented as of this encounter
== END 2025-02-28 13:02 | disposition home or self-care (01) ==
PROVIDERS: PCP Nurse Practitioner Family
DX: M79.89 Other specified soft tissue disorders (principal); Z96.642 Presence of left artificial hip joint
CPT/HCPCS: 93971

== ENCOUNTER 2025-04-29 07:57 | Outpatient (CLI) | payer MEDICARE, SELFPAY ==
--- OUTSIDE RECORDS SUMMARY | 2025-04-29 08:02 | XMS_ITS | Referral Summary ---
Author Organization [facility] Address [address] [place] [address] Care Team Providers Care Pulp Piler Name Role Phone Rebeca Cortes NP Primary Care Provider [phone] Alireza Modi MD Unavailable [phone] Pedro Rosado OT Unavailable Unavailable Encounters Date Type Department Care Team Description 03/26/2025 7:44 AM CDT - 03/26/2025 11:59 PM CDT Hospital Encounter [facility] [address] [place] [address] [address] [place] [address] Discharge Disposition: Discharge to home or self care 03/26/2025 9:15 AM CDT Office Visit [facility] [address] [place] [address] [address] [phone] Arabella Benjamin PA Aftercare following left hip joint replacement surgery (Primary Dx) 02/27/2025 Orders Only [facility] [address] [place] [address] [address] [phone] Arabella Benjamin PA S/P total left hip arthroplasty (Primary Dx); Swelling of limb 02/27/2025 Telephone [facility] [address] [place] [address] [address] [place] [address] Arabella Benjamin PA 02/20/2025 Telephone [facility] [address] [place] [address] [address] [place] [address] Arabella Benjamin PA 02/19/2025 11:45 AM CDT Telemedicine [facility] [address] [place] [address] [address] [place] [address] Arabella Benjamin PA Aftercare following left hip joint replacement surgery (Primary Dx) 02/08/2025 Telephone [facility] [address] [place] [address] [address] [place] [address] Lety Olivo NP 02/08/2025 Telephone [facility] [address] [place] [address] [address] [place] [address] Alireza Modi MD 01/28/2025 11:40 AM POULTRY GRADER - 01/29/2025 12:01 PM POULTRY GRADER Hospital Encounter [facility] [address] [place] [address] Alireza Modi MD Primary osteoarthritis of left hip Discharge Disposition: Discharge to home or self care 01/28/2025 2:20 PM POULTRY GRADER - 01/28/2025 4:45 PM POULTRY GRADER Surgery [facility] [address] [place] [address] Alireza Modi MD Left Total Hip Arthroplasty- Anterior Approach, Depuy- Actis 01/28/2025 12:31 PM POULTRY GRADER Anesthesia Event [facility] [address] [place] [address] Keagan Galindo MD Kory, Christopher James, MD from Last 3 Months Allergies No known [...] every 4 (four) hours as needed 07/16/20 Active pravastatin (PRAVACHOL) 10 mg tablet Take 1 tablet (10 mg total) by mouth daily 11/14/20 Active Breztri Aerosphere 160-9-4.8 mcg/actuation inhaler Inhale 2 puffs 2 (two) times a day 01/14/20 Active tiZANidine (ZANAFLEX) 2 mg tablet TAKE 1 TABLET BY MOUTH THREE TIMES DAILY NEEDED FOR MUSCLE SPASTICITY 01/03/20 Active ondansetron ODT (ZOFRAN-ODT) 4 mg disintegrating tabletIndications: nausea and vomiting Take 1 tablet (4 mg total) by mouth every 6 (six) hours as needed for nausea or vomiting 20 tablet 2 01/30/20 Active Additional Information Patient not taking.Reported on 03/26/2025 senna-docusate (PERICOLACE) 8.6-50 mgIndications:cons tipation Take 2 tablets by mouth 2 (two) times a day 60 tablet 2 01/30/20 Active Additional Information Patient not taking.Reported on 03/26/2025 oxyCODONE-acetamin ophen (PERCOCET) 5-325 mg per tabletIndications: Pain Take 1 tablet by mouth every 4 (four) hours as needed for pain 40 tablet 02/09/20 Active meloxicam (MOBIC) 15 mg tablet Take 1 tablet (15 mg total) by mouth daily Active Active Problems Problem Noted Date Diagnosed [...] Sign Reading Time Taken Comments Blood Pressure 164/90 03/26/2025 9:22 AM CDT Pulse 80 03/26/2025 9:22 AM CDT Temperature 36.2 C (97.2 F) 01/29/2025 7:08 AM POULTRY GRADER Respiratory Rate 16 01/29/2025 7:08 AM POULTRY GRADER Oxygen Saturation 93% 01/29/2025 7:08 AM POULTRY GRADER Inhaled Oxygen Concentration - - Weight 93 kg (205 lb) 03/26/2025 9:22 AM CDT Height 177.8 cm (5' 10) 03/26/2025 9:22 AM CDT Body Mass Index 29.41 03/26/2025 9:22 AM CDT Plan of Treatment Not on file Medical Devices Implanted Type Area Jockey Room Custodian Device Identifier Shelf Expiration Date Model / Serial / Lot [employer] [place] 60mm Sector Hip Shell Acetabular Gription Sterile Latex Free [id number] - [id number] Implanted:Qty: 1 on 01/09/2024 by Alireza Modi MD at [facility] Right: Hip [employer] 09/27/2033 [id number] / / [id number] [employer] [place] 60mm 36mm Hip Neutral Liner Acetabular Altrx Sterile Latex Free [id number] - [id number] Implanted:Qty: 1 on 01/09/2024 by Alireza Modi MD at [facility] Right: Hip [employer] 08/27/2028 [id number] / / [id number] [employer] [place] 6.5mm 35mm Acetabular Cancellous Screw Bone Sterile 1217-35-500 - [id number] Implanted:Qty: 1 on 01/09/2024 by Alireza Modi MD at [facility] Right: Hip [employer] 09/27/2033 1217-35-500 / / [id number] [employer] [place] 6.5mm 35mm Acetabular Cancellous Screw Bone Sterile 121-35500 - [id number] Implanted:Qty: 1 on 01/09/2024 by Alireza Modi MD at [facility] Right: Hip [employer] 07/28/2033 121-35-500 / / [id number] [employer] Articul/Law 36mm Cementless Hip +8.5mm 12/14 Taper Head Femoral Latex Free 1365-36330 - [id number] Implanted:Qty: 1 on 01/09/2024 by Alireza Modi MD at [facility] Right: Hip [employer] 08/27/2028 1365-36330 / / [id number] [employer] Stem Femoral Hip Porous Proximal Collared Actis Titanium High Offset Size 12 [id number] - Sna - [id number] Implanted:Qty: 1 on 01/09/2024 by Alireza Modi MD at [facility] Right: Hip [employer] [id number] 05/27/2026 [id number] / NA / [id number] [employer] [place] 6.5mm 40mm Acetabular Cancellous Screw Bone Sterile [id number] - [id number] Implanted:Qty: 1 on 01/28/2025 by Alireza Modi MD at [facility] Left: Hip [employer] [id number] 04/27/2033 [id number] / / [id number] [employer] [place] 6.5mm 30mm Acetabular Cancellous Screw Bone Revision 1217--500 - [id number] Implanted:Qty: 1 on 01/28/2025 by Alireza Modi MD at [facility] Left: Hip [employer] [id number] 04/27/2033 1217-30-500 / / [id number] [employer] Stem Femoral Hip Porous Proximal Collared Actis Titanium High Offset Size 12 [id number] - [id number] Implanted:Qty: 1 on 01/28/2025 by Alireza Modi MD at [facility] Left: Hip [employer] [id number] 08/27/2033 [id number] / / [id number] [employer] Articul/Law 36mm Cementless Hip +8.5mm 11/10 Taper Head Femoral Latex Free 1365-36330 - [id number] Implanted:Qty: 1 on 01/28/2025 by Alireza Modi MD at [facility] Left: Hip [employer] [id number] 06/27/2029 1365-36-330 / / [id number] [employer] [place] 60mm Sector Hip Shell Acetabular Gription Sterile Latex Free [id number] - [id number] Implanted:Qty: 1 on 01/28/2025 by Alireza Modi MD at [facility] Left: Hip [employer] [id number] 10/27/2034 [id number] / / [id number] [employer] [place] 60mm 36mm Hip Neutral Liner Acetabular Altrx Sterile Latex Free [id number] - [id number] Implanted:Qty: 1 on 01/28/2025 by Alireza Modi MD at [facility] Left: Hip [employer] [id number] 11/27/2029 [id number] / / [id number] [employer] [place] 6.5mm 40mm Acetabular Cancellous Screw Bone Sterile 315020451 - [id number] Implanted:Qty: 1 on 01/28/2025 by Alireza Modi MD at [facility] Left: Hip [employer] [id number] 04/27/2034 [id number] / / [id number] Procedures Procedure Name Priority Date/Time Associated Diagnosis Comments XR HIP LEFT 2 OR 3 VIEWS Schedule Routine, Read Routine (OP Routine) 03/26/2025 9:20 AM CDT Aftercare following left hip joint replacement surgery POCT GLUCOSE DEVICE Routine 01/29/2025 7 :44 AM POULTRY GRADER POCT GLUCOSE DEVICE Routine 01/29/2025 7 :07 AM POULTRY GRADER EGFR Routine 01/29/2025 3:11 AM POULTRY GRADER CBC WITHOUT DIFFERENTIAL Routine 01/29/2025 3:11 AM POULTRY GRADER BASIC METABOLIC PANEL Routine 01/29/2025 3:11 AM POULTRY GRADER POCT GLUCOSE DEVICE Routine 01/29/2025 2 :44 AM POULTRY GRADER POCT GLUCOSE DEVICE Routine 01/28/2025 8 :45 PM POULTRY GRADER POCT GLUCOSE DEVICE Routine 01/28/2025 4 :09 PM POULTRY GRADER XR PELVIS ORTHO VIEW ED Urgent/IP Urgent 01/28/2025 2:37 PM POULTRY GRADER POCT GLUCOSE DEVICE Routine 01/28/2025 2 :30 PM POULTRY GRADER XR HIP LEFT 1 VIEW IP Routine 01/28/2025 1: 55 PM POULTRY GRADER FL FLUOROSCOPY < 1 HOUR IP Routine 01/28/2025 1:55 PM POULTRY GRADER ANESTHESIA SPINAL BLOCK Routine 01/28/2025 12:41 PM POULTRY GRADER ARTHROPLASTY TOTAL HIP - ANTERIOR APPROACH 01/28/2025 12:11 PM POULTRY GRADER Primary osteoarthritis of left hip Special Needs Anterior Approach, Depuy- Actis , Omnitrac, Aquamantys, 1 Liter Beta Rinse, Pt to stay POTASSIUM, WHOLE BLOOD STAT 01/28/2025 12:10 PM POULTRY GRADER PROTIME-INR STAT 01/28/2025 12:10 PM POULTRY GRADER APTT STAT 01/28/2025 12:10 PM POULTRY GRADER POCT GLUCOSE DEVICE Routine 01/28/2025 11:59 AM POULTRY GRADER SURGICAL PATHOLOGY Routine 01/28/2025 10:24 AM POULTRY GRADER Primary osteoarthritis of left hip from Last 3 Months Results * XR Hip Left 2 or 3 Views (03/26/2025 9:20 AM CDT) Anatomical Region Laterality Modality Lower Extremities, Hip, Pelvis Left D igital Radiography Narrative 03/26/2025 9:34 AM CDT Radiographs taken of the left hip today reveal a total hip arthroplasty in appropriate position with no interval change from the time of surgery. Arabella BLANCO IMG XR PROCEDURES Fin al Result * POCT glucose (01/29/2025 7:44 AM POULTRY GRADER) Glucose, POC 135 70 - 199 mg/dL Blood 01/29/2025 7:44 AM POULTRY GRADER 01/29/2025 7:44 AM POULTRY GRADER Alireza Modi MD LAB POCT ORDERABLES - DE VICE Final Result Performing Organization Address [facility] Co de Phone Number [facility] ([place]) 1 [facility] [place] [address] * POCT glucose (01/29/2025 7:07 AM POULTRY GRADER) Glucose, POC 132 70 - 199 mg/dL Blood 01/29/2025 7:07 AM POULTRY GRADER 01/29/2025 7:07 AM POULTRY GRADER Alireza Modi MD LAB POCT ORDERABLES - DE VICE Final Result Performing Organization Address City/[facility]/ZIP Co de Phone Number [facility] ([place]) 1 [facility] [place] [address] * eGFR (01/29/2025 3:11 AM POULTRY GRADER) Pathologist [facility] eGFR >90 >=60 mL/min/1. 73 m2 Comment: [...] last reviewed 2021. Blood 01/29/2025 3:11 AM POULTRY GRADER 01/29/2025 4:00 AM POULTRY GRADER Arabella BLANCO LAB BLOOD ORDERABLES Final Result [facility] ([place]) 1 [facility] Department [place] [address] * (ABNORMAL) CBC without differential (01/29/2025 3:11 AM POULTRY GRADER) [facility] WBC 6.0 3.8 - 9.9 K/cumm Hgb 9.3(L) 13.0 - 17.5 g/dL [facility] ([place]) Hct 27.1(L) 38.9 - 50.3 % [facility] ([place]) Plt 149(L) 150 - 400 K/cumm [facility] ([place] MPV 10.1 9.1 - 12.3 fL [facility] ([place]) RBC 2.82(L) 4.30 - 5.80 M/cumm [facility] ([place]) MCV 96.1 81.3 - 96.4 fL [facility] ([place]) MCH 33.0 27.1 - 33.3 pg [facility] ([place]) MCHC 34.3 32.3 - 35.7 g/dL [facility] ([place]) RDW CV 12.8 11.1 - 14.9 % [facility] ([place]) RDW SD 45.1 35.7 - 48.1 fL [facility] ([place]) NRBC abs 0.00 0.00 - 0.01 K/cumm [facility] ([place]) Blood 01/29/2025 3:11 AM POULTRY GRADER 01/29/2025 4:00 AM POULTRY GRADER us Arabella BLANCO LAB BLOOD ORDERABLES Final Result [facility] ([place]) 1 [facility] Department [place] [address] * (ABNORMAL) Basic metabolic panel (01/29/2025 3:11 AM POULTRY GRADER) Sodium 136 135 - 145 mmol/L Potassium, pl 3.7 3.3 - 4.9 mmol/L [facility] ([place] Chloride 105 97 - 110 mmol/L [facility] ([place] CO2 21(L) 22 - 32 mmol/L [facility] ([place]) Anion gap 11 2 - 15 mmol/L [facility] ([place] BUN 22 6 - 25 mg/dL [facility] ([place]) Creatinine 0.90 0.80 - 1.30 mg/dL [facility] ([place]) Glucose 141 70 - 199 mg/dL [facility] ([place]) Comment: Interpretive Data Fasting glucose [...] classification and Diagnosis of Diabetes Diabetes Care 202; 46: S19-S40. Current interpretive data was last revised 2022. Calcium 8.1(L) 8.5 - 10.3 mg/dL [facility] ([place]) Blood 01/29/2025 3:11 AM POULTRY GRADER 01/29/2025 4:00 AM POULTRY GRADER Arabella BLANCO LAB BLOOD ORDERABLES Final Result Performing Organization Address City/[facility]/ZIP Co de Phone Number [facility] ([place]) 1 [facility] [place] [address] * POCT glucose (01/29/2025 2:44 AM POULTRY GRADER) Glucose, POC 156 70 - 199 mg/dL Blood 01/29/2025 2:44 AM POULTRY GRADER 01/29/2025 2:44 AM POULTRY GRADER Alireza Modi MD LAB POCT ORDERABLES - DE VICE Final Result Performing Organization Address [facility] Co de Phone Number [facility] ([place]) 1 [facility] [place] [address] * POCT glucose (01/28/2025 8:45 PM POULTRY GRADER) Glucose, POC 179 70 - 199 mg/dL Blood 01/28/2025 8:45 PM POULTRY GRADER 01/28/2025 8:45 PM POULTRY GRADER Alireza Modi MD LAB POCT ORDERABLES - DE VICE Final Result Performing Organization Address City/[facility]/ZIP Co de Phone Number [facility] ([place]) 1 [facility] [place] [address] * POCT glucose (01/28/2025 4:09 PM POULTRY GRADER) Glucose, POC 157 70 - 199 mg/dL Blood 01/28/2025 4:09 PM POULTRY GRADER 01/28/2025 4:09 PM POULTRY GRADER us Alireza Modi MD LAB POCT ORDERABLES - DE VICE Final Result [facility] ([place]) 1 [facility] Department [place] [address] * XR Pelvis Ortho View (01/28/2025 2:37 PM POULTRY GRADER) Anatomical Region Laterality Modality Body, Pelvis N/A Computed Radiogr aphy 01/28/2025 2:52 PM POULTRY GRADER Narrative 01/28/2025 2:53 PM POULTRY GRADER EXAM DESCRIPTION: XR PELVIS ORTHO VIEW REASON [...] 01/28/2025 2:53 PM - Electronically signed by Shaane Patel D.O. PS: PS Report ID: [id number] Reading Location: [id number] Procedure Note Shanae Patel DO - 01/28/2025 [...] Shanae Patel D.O. PS: PS Report ID: [id number] Reading Location: [place] [address] Alireza Modi MD IMG XR PROCEDURES Final Result * POCT glucose (01/28/2025 2:30 PM POULTRY GRADER) Glucose, POC 148 70 - 199 mg/dL Blood 01/28/2025 2:30 PM POULTRY GRADER 01/28/2025 2:30 PM POULTRY GRADER Alireza Modi MD LAB POCT ORDERABLES - DE VICE Final Result Performing Organization Address [facility] Co de Phone Number [facility] ([address] Department of Laboratories [place] [phone] * FL Fluoroscopy < 1 Hour (01/28/2025 1:55 PM POULTRY GRADER) Narrative [facility] - 01/28/2025 1:56 PM POULTRY GRADER The images from this study are not interpreted by Radiology. Please refer to the physician's procedure / OR operative note. Alireza Modi MD IMG FLUOROSCOPY PROCEDUR ES Final Result Performing Organization Address [facility] Co de Phone Number [facility] * XR Hip Left 1 View (01/28/2025 1:55 PM POULTRY GRADER) Anatomical Region Laterality Modality Lower Extremities, Hip, Pelvis Left R adio Fluoroscopy 01/28/2025 5:09 PM POULTRY GRADER Narrative 01/28/2025 5:11 PM POULTRY GRADER EXAM DESCRIPTION: XR HIP LEFT 1 VIEW REASON FOR STUDY: osteoarthritis Left Hip Fl Time- 12.6 seconds Dose- 1.56 mGy TECHNIQUE: Fluoroscopic assistance provided for left hip procedure. One view provided. Fluoroscopic dose scratch the radiation does 0.94157 mGy meters squared cumulative air kerma. COMPARISON: Radiographs the same day. FINDINGS: Imaging sequential steps for hip arthroplasty. IMPRESSION: Fluoroscopic assistance provided for left hip arthroplasty. THIS IS AN ELECTRONICALLY VERIFIED FINAL REPORT 01/28/2025 5:11 PM - Electronically signed by Cassius Hudson M.D. CH: Report ID: [id number] Reading Location: [id number] Procedure Note Cassius Hudson Jr., MD - 01/28/2025 EXAM DESCRIPTION: XR HIP LEFT 1 VIEW REASON FOR STUDY: osteoarthritis Left Hip Fl Time- 12.6 seconds Dose- 1.56 mGy TECHNIQUE: Fluoroscopic assistance provided for left hip procedure. Oneview provided. Fluoroscopic dose scratch the radiation does 0.37850 mGy meters squared cumulative air kerma. COMPARISON: Radiographs the same day. FINDINGS: Imaging sequential steps for hip arthroplasty. IMPRESSION: Fluoroscopic assistance provided for left hip arthroplasty. THIS IS AN ELECTRONICALLY VERIFIED FINAL REPORT 01/28/2025 5:11 PM - Electronically signed by Cassius Hudson M.D. CH: Report ID: [id number] Reading Location: [id number] Alireza Modi MD IMG XR PROCEDURES Final Result * Spinal Block (01/28/2025 12:41 PM POULTRY GRADER) Narrative Jose Dias CRNA - 01/28/2025 12:41 PM POULTRY GRADER Jose Dias CRNA 01/28/2025 12:41 PM Spinal Block Patient location: OR End time: 01/28/2025 12:37 PM Reason for block: primary anesthetic Staff: Placed by: LEAD SOFTWARE ENGINEER:Jose Dias CRNA Procedure prep: Preprocedure checklist: patient [...] * Potassium, whole blood (01/28/2025 12:10 PM POULTRY GRADER) Potassium, bld 4.0 3.3 - 4.9 mmol/L Comment: Interpretive Data This method is not able to assess for hemolysis, which may falsely increase potassium concentrations. If further testing is needed to evaluate this result, consider in-laboratory plasma potassium. Current Interpretive Data was last revised on 2022. Blood 01/28/2025 12:1 0 PM POULTRY GRADER 01/28/2025 12:15 PM POULTRY GRADER Keagan Galindo MD LAB BLOOD ORDERABLES Fin al Result Performing Organization Address [facility] Co de Phone Number [facility] ([place]) 1 [facility] Department [place] [address] * aPTT (01/28/2025 12:10 PM POULTRY GRADER) aPTT 32 28 - 38 sec [facility] ([place]) Comment: Interpretive Data Heparin therapeutic range: 66.0 - 100.0 seconds. Range based on correlation with therapeutic heparin activity range of 0.3 - 0.7 Units/mL. Current interpretive data was last revised on 2023. Blood 01/28/2025 12:1 0 PM POULTRY GRADER 01/28/2025 12:15 PM POULTRY GRADER Alireza Modi MD LAB BLOOD ORDERABLES Fin al Result [facility] ([place]) [address] [place] [address] * Protime-INR (01/28/2025 12:10 PM POULTRY GRADER) PT 11.2 9.7 - 13.0 sec [facility] INR 1.04 0.90 - 1.20 [facility] ([place]) Comment: Interpretive data Oral anticoagulant therapeutic ranges: Venous thromboembolism prophylaxis or treatment: 2.0-3.0 CARDIOLOGY Standard range: 2.0-3.0 High-intensity range: 2.5-3.5 Refer to indication-specific guidelines for appropriate target ranges for prosthetic heart valve replacement. Current interpretive data was last revised on 2019. Blood 01/28/2025 12:1 0 PM POULTRY GRADER 01/28/2025 12:15 PM POULTRY GRADER Alireza Modi MD LAB BLOOD ORDERABLES Fin al Result [facility] ([place]) [address] [place] [address] * POCT glucose (01/28/2025 11:59 AM POULTRY GRADER) Glucose, POC 139 70 - 199 mg/dL Blood 01/28/2025 11:5 9 AM POULTRY GRADER 01/28/2025 11:59 AM POULTRY GRADER Alireza Modi MD LAB POCT ORDERABLES - DE VICE Final Result [facility] ([place]) [address] [place] [address] * Surgical pathology (01/28/2025 10:24 AM POULTRY GRADER) Tissue specimen (specimen) (Bone Fragment(s),) 01/28/2025 1:12 PM POULTRY GRADER Comment:Placed in formalin a fter procedure Narrative PATHOLOGY [facility] ([place]) - 02/01/2025 11:03 AM POULTRY GRADER EPIC results best viewed via link to PDF [facility] Department of Pathology [address] [place] [address] Note to Patients: This report may contain [...] Report Patient Name: YULIET SARMIENTO Address: [address] [place] [address] Gender: M : 1960 (Age: 64) Service: Surgery Location: [facility] Hospital #: [id number] Patient Type: [facility] OP in bed Taken: 01/28/2025 Received: 01/29/2025 [...] single container labeled YULIET SARMIENTO and left hip. It is a 5.2 cm in diameter femoral head and separate 15 cc aggregate of rachel gritty hemorrhagic cortical and cancellous bone. The articular surface of the femoral head shows degenerative changes of the cartilage with erosion and eburnation. The femoral neck margin is smooth. The specimen is bisected revealing no subchondral gross lesions. Janitorial Account Manager sections are submitted in one cassette after decalcification. Ragini Perez R.N., P.A./Pam Collins M.D. REPORT IMAGES AND SCANNED DOCUMENTS, IF INCLUDED, ONLY VIEWABLE IN PDF VERSION OF REPORT The performance characteristics of some immunohistochemical stains, fluorescence in-situ hybridization tests and immunophenotyping by flow cytometry cited in this report (if any) were determined by the Surgical Pathology Department at [facility] as part of an ongoing quality control lead program and in compliance with federally mandated [...] characteristics determined by the Surgical Pathology Department [facility]. It has not been cleared or approved by the U. S. Food and Drug Administration. Note for decalcified specimens: This assay has not been validated on decalcified tissues. Results should be interpreted with caution given the possibility of false negativity on decalcified specimens Alireza Modi MD LAB PATHOLOGY ORDERABLES Final Result PATHOLOGY [facility] ([facility] [address] [place], [place] [id number] from Last 3 [place] [address] MEDICARE IDPA Advance Directives For more information, please contact: [phone] * Full Code (Latest Code Status on File) Date Activated Date Inactivated Comments 01/28/2025 3:44 PM 01/29/2025 4:06 PM * Full Code Date Activated Date Inactivated Comments 01/09/2024 2:48 PM 01/10/2024 4:25 PM Care Teams Pulp Piler Relationship Specialty Start Date End Date Rebeca Cortes NP [address] [place] [address] PCP - General Nurse Practitioner 08/28/20 Alireza Modi MD [address] [place] [address] [address] [place] [address] Surgeon Orthopedic Surgery 01/10/24 Pedro Rosado OT Occupational Therapist Occupational Therapy 01/24/25
--- OUTSIDE RECORDS SUMMARY | 2025-04-29 08:02 | XMS_ITS | Clinical Summary ---
Author Organization [facility] Medical Office Building [address] Address [address] [place] [address] Care Team Providers Care Independent Agent Music Education Name Role Phone Rebeca Cortes NP Primary Care Provider [phone] Alireza Modi MD Unavailable [phone] Pedro Rosado OT Unavailable Unavailable Allergies No [...] NEEDED FOR MUSCLE SPASTICITY 01/03/20 25 Active ondansetron ODT (ZOFRAN-ODT) 4 mg disintegrating [...] Date Type Department Care Team Description 03/26/2025 9:15 AM CDT Office Visit [facility] [address] [place] [phone] Arabella Benjamin PA Aftercare following left hip joint replacement surgery (Primary Dx) 03/26/2025 7:44 AM CDT - 03/26/2025 11:59 PM CDT Hospital Encounter [facility] [address] [place] [phone] Discharge Disposition: Discharge to home or self care 02/27/2025 Orders Only [facility] [address] [place] [phone] Arabella Benjamin PA S/P total left hip arthroplasty (Primary Dx); Swelling of limb 02/27/2025 Telephone [facility] [address] [place] [address] [address] [place] [address] Arabella Benjamin PA 02/20/2025 Telephone [facility] [address] [place] [address] [address] [place] [address] Arabella Benjamin PA 02/19/2025 11:45 AM CDT Telemedicine [facility] [address] [place] [address] [address] [place] [address] Arabella Benjamin PA Aftercare following left hip joint replacement surgery (Primary Dx) 02/08/2025 Telephone [facility] [address] [place] [address] [address] [place] [address] Lety Olivo NP 02/08/2025 Telephone [facility] [address] [place] [address] [address] [place] [address] Alireza Modi MD 01/28/2025 2:20 PM POWER CHECKER - 01/28/2025 4:45 PM POWER CHECKER Surgery [facility] Operating Room [address] [place] [address] Alireza Modi MD Left Total Hip Arthroplasty- Anterior Approach, Depuy- Actis 01/28/2025 12:31 PM POWER CHECKER Anesthesia Event [facility] Operating Room [address] [place] [address] Keagan Galindo MD Kory, Christopher James, MD 01/28/2025 11:40 AM POWER CHECKER - 01/29/2025 12:01 PM POWER CHECKER Hospital Encounter [facility] Surgery Care [address] [place] [address] Alireza Modi MD Primary osteoarthritis of left [...] 36.2 C (97.2 F) 01/29/2025 7:08 AM POWER CHECKER Respiratory Rate 16 01/29/2025 7:08 AM POWER CHECKER Oxygen Saturation 93% 01/29/2025 7:08 AM POWER CHECKER Inhaled Oxygen Concentration - - Weight 93 kg (205 lb) 03/26/2025 9:22 AM CDT Height 177.8 cm (5' 10) 03/26/2025 9:22 AM CDT Body Mass Index 29.41 03/26/2025 9:22 AM CDT Plan of Treatment Health Maintenance Due Date [...] 01/17/20 25 Medical Devices Implanted Type Area Pool Nurse Device Identifier Shelf Expiration Date Model / Serial / Lot [employer] Lorenzo 60mm Sector Hip Shell Acetabular Gription Sterile Latex Free [id number] - [id number] Implanted:Qty: 1 on 01/09/2024 by Alireza Modi MD at [facility] Right: Hip [employer] 09/27/2033 [id number] / / [id number] [employer] Lorenzo 60mm 36mm Hip Neutral Liner Acetabular Altrx Sterile Latex Free [id number] - [id number] Implanted:Qty: 1 on 01/09/2024 by Alireza Modi MD at [facility] Right: Hip [employer] 08/27/2028 [id number] / / [id number] [employer] Lorenzo 6.5mm 35mm Acetabular Cancellous Screw Bone Sterile 1217-35-500 - [id number] Implanted:Qty: 1 on 01/09/2024 by Alireza Modi MD at [facility] Right: Hip [employer] 09/27/2033 1217-35-500 / / [id number] [employer] Lorenzo 6.5mm 35mm Acetabular Cancellous Screw Bone Sterile 1217-35-500 - [id number] Implanted:Qty: 1 on 01/09/2024 by Alireza Modi MD at [facility] Right: Hip [employer] 07/28/2033 1217-35-500 / / [id number] [employer] Articul/Law 36mm Cementless Hip +8.5mm 11/10 Taper Head Femoral Latex Free 1365-36330 - [id number] Implanted:Qty: 1 on 01/09/2024 by Alireza Modi MD at [facility] Right: Hip [employer] 08/27/2028 1365-36330 / / [id number] [employer] Stem Femoral Hip Porous Proximal Collared Actis Titanium High Offset Size 12 [id number] - Sna - [id number] Implanted:Qty: 1 on 01/09/2024 by Alireza Modi MD at [facility] Right: Hip [employer] [id number] 05/27/2026 [id number] / NA / [id number] [employer] Lorenzo 6.5mm 40mm Acetabular Cancellous Screw Bone Sterile [id number] - [id number] Implanted:Qty: 1 on 01/28/2025 by Alireza Modi MD at [facility] Left: Hip [employer] [id number] 04/27/2033 [id number] / / [id number] [employer] Lorenzo 6.5mm 30mm Acetabular Cancellous Screw Bone Revision 121730-500 - [id number] Implanted:Qty: 1 on 01/28/2025 by Alireza Modi MD at [facility] Left: Hip [employer] [id number] 04/27/2033 1217-30-500 / / [id number] [employer] Stem Femoral Hip Porous Proximal Collared Actis Titanium High Offset Size 12 [id number] - [id number] Implanted:Qty: 1 on 01/28/2025 by Alireza Modi MD at [facility] Left: Hip [employer] [id number] 08/27/2033 [id number] / / [id number] [employer] Articul/Law 36mm Cementless Hip +8.5mm 11/10 Taper Head Femoral Latex Free 1365-36330 - [id number] Implanted:Qty: 1 on 01/28/2025 by Alireza Modi MD at [facility] Left: Hip [employer] [id number] 06/27/2029 [id number] / / [id number] [employer] Lorenzo 60mm Sector Hip Shell Acetabular Gription Sterile Latex Free 720868884 - [id number] Implanted:Qty: 1 on 01/28/2025 by Alireza Modi MD at [facility] Left: Hip [employer] [id number] 10/27/2034 [id number] / / [id number] [employer] Lorenzo 60mm 36mm Hip Neutral Liner Acetabular Altrx Sterile Latex Free [id number] - [id number] Implanted:Qty: 1 on 01/28/2025 by Alireza Modi MD at [facility] Left: Hip [employer] [id number] 11/27/2029 [id number] / / [id number] [employer] Lorenzo 6.5mm 40mm Acetabular Cancellous Screw Bone Sterile 910054144 - [id number] Implanted:Qty: 1 on 01/28/2025 by Alireza Modi MD at [facility] Left: Hip [employer] [id number] 04/27/2034 [id number] / / [id number] Procedures Procedure Name Priority Date/Time Associated Diagnosis Comments XR HIP LEFT 2 OR 3 VIEWS Schedule Routine, Read Routine (OP Routine) 03/26/2025 9:20 AM CDT Aftercare following left hip joint replacement surgery POCT GLUCOSE DEVICE Routine 01/29/2025 7 :44 AM POWER CHECKER POCT GLUCOSE DEVICE Routine 01/29/2025 7 :07 AM POWER CHECKER EGFR Routine 01/29/2025 3:11 AM POWER CHECKER CBC WITHOUT DIFFERENTIAL Routine 01/29/2025 3:11 AM POWER CHECKER BASIC METABOLIC PANEL Routine 01/29/2025 3:11 AM POWER CHECKER POCT GLUCOSE DEVICE Routine 01/29/2025 2 :44 AM POWER CHECKER POCT GLUCOSE DEVICE Routine 01/28/2025 8 :45 PM POWER CHECKER POCT GLUCOSE DEVICE Routine 01/28/2025 4 :09 PM POWER CHECKER XR PELVIS ORTHO VIEW ED Urgent/IP Urgent 01/28/2025 2:37 PM POWER CHECKER POCT GLUCOSE DEVICE Routine 01/28/2025 2 :30 PM POWER CHECKER XR HIP LEFT 1 VIEW IP Routine 01/28/2025 1: 55 PM POWER CHECKER FL FLUOROSCOPY < 1 HOUR IP Routine 01/28/2025 1:55 PM POWER CHECKER ANESTHESIA SPINAL BLOCK Routine 01/28/2025 12:41 PM POWER CHECKER ARTHROPLASTY TOTAL HIP - ANTERIOR APPROACH 01/28/2025 12:11 PM POWER CHECKER Primary osteoarthritis of left hip Special Needs Anterior Approach, Depuy- Actis , Omnitrac, Aquamantys, 1 Liter Beta Rinse, Pt to stay POTASSIUM, WHOLE BLOOD STAT 01/28/2025 12:10 PM POWER CHECKER PROTIME-INR STAT 01/28/2025 12:10 PM POWER CHECKER APTT STAT 01/28/2025 12:10 PM POWER CHECKER POCT GLUCOSE DEVICE Routine 01/28/2025 11:59 AM POWER CHECKER SURGICAL PATHOLOGY Routine 01/28/2025 10:24 AM POWER CHECKER Primary osteoarthritis of left hip from [...] Result * POCT glucose (01/29/2025 7:44 AM POWER CHECKER) Glucose, POC 135 70 - 199 mg/dL Blood 01/29/2025 7:44 AM POWER CHECKER 01/29/2025 7:44 AM POWER CHECKER Alireza Modi MD LAB POCT ORDERABLES - DE VICE Final Result NEENA YOUNG ([place]) 1 [facility] [place] [address] * POCT glucose (01/29/2025 7:07 AM POWER CHECKER) Glucose, POC 132 70 - 199 mg/dL Blood 01/29/2025 7:07 AM POWER CHECKER 01/29/2025 7:07 AM POWER CHECKER Alireza Modi MD LAB POCT ORDERABLES - DE VICE Final Result Performing Organization Address City/[facility] Co de Phone Number NEENA [facility] ([place]) 1 [facility] [place] [address] * eGFR (01/29/2025 3:11 AM POWER CHECKER) eGFR >90 >=60 mL/min/1. 73 m2 Comment: [...] last reviewed 2021. Blood 01/29/2025 3:11 AM POWER CHECKER 01/29/2025 4:00 AM POWER CHECKER Arabella BLANCO LAB BLOOD ORDERABLES Final Result Performing Organization Address City/[facility]/ZIP Co de Phone Number NEENA [facility] ([place]) 1 [facility] [place] [address] * (ABNORMAL) CBC without differential (01/29/2025 3:11 AM POWER CHECKER) WBC 6.0 3.8 - 9.9 K/cumm [...] [facility] ([place]) Blood 01/29/2025 3:11 AM POWER CHECKER 01/29/2025 4:00 AM POWER CHECKER Arabella BLANCO LAB BLOOD ORDERABLES Final Result [facility]EENA [facility] ([place]) 1 [facility] [place] [address] * (ABNORMAL) Basic metabolic panel (01/29/2025 3:11 AM POWER CHECKER) Sodium 136 135 - 145 mmol/L Potassium, pl 3.7 3.3 - 4.9 mmol/L [facility] ([place]) Chloride 105 97 - 110 mmol/L [facility] ([place]) CO2 21(L) 22 - 32 mmol/L [facility] ([facility] Anion gap 11 2 - 15 mmol/L [facility] ([place]) BUN 22 6 - 25 mg/dL [facility] ([place]) Creatinine 0.90 0.80 - 1.30 mg/dL [facility] ([place]) Glucose 141 70 - 199 mg/dL [facility] (NEIL) Comment: Interpretive Data Fasting glucose >/= [...] 2022. Calcium 8.1(L) 8.5 - 10.3 mg/dL [facility] ([place]) Blood 01/29/2025 3:11 AM POWER CHECKER 01/29/2025 4:00 AM POWER CHECKER us Arabella BLANCO LAB BLOOD ORDERABLES Final Result NEENA [facility] ([place]IL) 1 [facility] Department [place] [address] * POCT glucose (01/29/2025 2:44 AM POWER CHECKER) Glucose, POC 156 70 - 199 mg/dL Blood 01/29/2025 2:44 AM POWER CHECKER 01/29/2025 2:44 AM POWER CHECKER us Alireza Modi MD LAB POCT ORDERABLES - DE VICE Final Result Performing Organization Address City/[facility]/ZIP Co de Phone Number NEENA YOUNG [place]) [address] [place] [address] * POCT glucose (01/28/2025 8:45 PM POWER CHECKER) Glucose, POC 179 70 - 199 mg/dL Blood 01/28/2025 8:45 PM POWER CHECKER 01/28/2025 8:45 PM POWER CHECKER Alireza Modi MD LAB POCT ORDERABLES - DE VICE Final Result Performing Organization Address [facility] Co de Phone Number NEENA YOUNG ([place]) [address] [place] [address] * POCT glucose (01/28/2025 4:09 PM POWER CHECKER) Glucose, POC 157 70 - 199 mg/dL Blood 01/28/2025 4:09 PM POWER CHECKER 01/28/2025 4:09 PM POWER CHECKER Alireza Modi MD LAB POCT ORDERABLES - DE VICE Final Result Performing Organization Address [facility] Co pr Phone Number NEENA [facility] [place]) 1 [facility] [place] [address] * XR Pelvis Ortho View (01/28/2025 2:37 PM POWER CHECKER) Anatomical Region Laterality Modality Body, Pelvis N/A Computed Radiogr aphy 01/28/2025 2:52 PM POWER CHECKER Narrative 01/28/2025 2:53 PM POWER CHECKER EXAM DESCRIPTION: XR PELVIS ORTHO VIEW [...] Shanae Patel D.O. PS: PS Report ID: [id number] Reading Location: [id number] Procedure Note Shanae Patel, DO - 01/28/2025 [...] Shanae Patel D.O. PS: PS Report ID: [id number] Reading Location: [place] [address] Alireza Modi MD IMG XR PROCEDURES Final Result * POCT glucose (01/28/2025 2:30 PM POWER CHECKER) Glucose, POC 148 70 - 199 mg/dL Blood 01/28/2025 2:30 PM POWER CHECKER 01/28/2025 2:30 PM POWER CHECKER Alireza Modi MD LAB POCT ORDERABLES - DE VICE Final Result NEENA OYUNG ([place]) [address] [place] [address] Department [place] [address] * FL Fluoroscopy < 1 Hour (01/28/2025 1:55 PM POWER CHECKER) Narrative JARRETT - 01/28/2025 1:56 PM POWER CHECKER The images from this study are not interpreted by Radiology. Please refer to the physician's procedure / OR operative note. Alireza Modi MD IMG FLUOROSCOPY PROCEDUR ES Final Result [facility] * XR Hip Left 1 View (01/28/2025 1:55 PM POWER CHECKER) Anatomical Region Laterality Modality Lower Extremities, Hip, Pelvis Left R adio Fluoroscopy 01/28/2025 5:09 PM POWER CHECKER Narrative 01/28/2025 5:11 PM POWER CHECKER EXAM DESCRIPTION: XR HIP LEFT 1 VIEW REASON FOR STUDY: osteoarthritis Left Hip Fl Time- 12.6 seconds Dose- 1.56 mGy TECHNIQUE: Fluoroscopic assistance provided for left hip procedure. One view provided. Fluoroscopic dose scratch the radiation does 0.46366 mGy meters squared cumulative air kerma. COMPARISON: Radiographs the same day. FINDINGS: Imaging sequential steps for hip arthroplasty. IMPRESSION: Fluoroscopic assistance provided for left hip arthroplasty. THIS IS AN ELECTRONICALLY VERIFIED FINAL REPORT 01/28/2025 5:11 PM - Electronically signed by Cassius Hudson M.D. CH: Report ID: [id number] Reading Location: [id number] Procedure Note Cassius Hudson Jr., MD - 01/28/2025 EXAM DESCRIPTION: XR HIP LEFT 1 VIEW REASON FOR STUDY: osteoarthritis Left Hip Fl Time- 12.6 seconds Dose- 1.56 mGy TECHNIQUE: Fluoroscopic assistance provided for left hip procedure. Oneview provided. Fluoroscopic dose scratch the radiation does 0.61050 mGy meters squared cumulative air kerma. COMPARISON: Radiographs the same day. FINDINGS: Imaging sequential steps for hip arthroplasty. IMPRESSION: Fluoroscopic assistance provided for left hip arthroplasty. THIS IS AN ELECTRONICALLY VERIFIED FINAL REPORT 01/28/2025 5:11 PM - Electronically signed by Cassius Hudson M.D. CH: DIANN Report ID: [id number] Reading Location: [place] [address] Alireza Modi MD IMG XR PROCEDURES Final Result * Spinal Block (01/28/2025 12:41 PM POWER CHECKER) Narrative Jose Dias CRNA - 01/28/2025 12:41 PM POWER CHECKER Jose Dias CRNA 01/28/2025 12:41 PM Spinal Block Patient location: OR End time: 01/28/2025 12:37 PM Reason for block: primary anesthetic Staff: Placed by: CERTIFIED REAL ESTATE APPRAISER:Jose Dias CRNA Procedure prep: Preprocedure checklist: patient [...] * Potassium, whole blood (01/28/2025 12:10 PM POWER CHECKER) Potassium, bld 4.0 3.3 - 4.9 mmol/L Comment: Interpretive Data This method is not able to assess for hemolysis, which may falsely increase potassium concentrations. If further testing is needed to evaluate this result, consider in-laboratory plasma potassium. Current Interpretive Data was last revised on 2022. Blood 01/28/2025 12:1 0 PM POWER CHECKER 01/28/2025 12:15 PM POWER CHECKER Keagan Galindo MD LAB BLOOD ORDERABLES Fin al Result Performing Organization Address [facility] Co de Phone Number NEENA YOUNG ([place]) 1 [facility] [place] [address] * aPTT (01/28/2025 12:10 PM POWER CHECKER) aPTT 32 28 - 38 sec [facility] ([place]) Comment: Interpretive Data Heparin therapeutic range: 66.0 - 100.0 seconds. Range based on correlation with therapeutic heparin activity range of 0.3 - 0.7 Units/mL. Current interpretive data was last revised on 2023. Blood 01/28/2025 12:1 0 PM POWER CHECKER 01/28/2025 12:15 PM POWER CHECKER Alireza Modi MD LAB BLOOD ORDERABLES Fin al Result Performing Organization Address [facility] Co de Phone Number NEENA [facility] ([place]) 1 [facility] [place] [address] * Protime-INR (01/28/2025 12:10 PM POWER CHECKER) PT 11.2 9.7 - 13.0 sec [facility] INR 1.04 0.90 - 1.20 [facility] ([place]) Comment: Interpretive data Oral anticoagulant therapeutic ranges: Venous thromboembolism prophylaxis or treatment: 2.0-3.0 CARDIOLOGY Standard range: 2.0-3.0 High-intensity range: 2.5-3.5 Refer to indication-specific guidelines for appropriate target ranges for prosthetic heart valve replacement. Current interpretive data was last revised on 2019. Blood 01/28/2025 12:1 0 PM POWER CHECKER 01/28/2025 12:15 PM POWER CHECKER Alireza Modi MD LAB BLOOD ORDERABLES Fin al Result NEENA YOUNG ([place]) 1 [facility] Department [place] [address] * POCT glucose (01/28/2025 11:59 AM POWER CHECKER) Glucose, POC 139 70 - 199 mg/dL Blood 01/28/2025 11:5 9 AM POWER CHECKER 01/28/2025 11:59 AM POWER CHECKER us Alireza Modi MD LAB POCT ORDERABLES - DE VICE Final Result Performing Organization Address [facility] Co de Phone Number NEENA YOUNG ([place]) 1 [facility] Department [place] [address] * Surgical pathology (01/28/2025 10:24 AM POWER CHECKER) Tissue specimen (specimen) (Bone Fragment(s),) 01/28/2025 1:12 PM POWER CHECKER Comment:Placed in formalin a fter procedure Narrative PATHOLOGY [facility] ([place]) - 02/01/2025 11:03 AM POWER CHECKER EPIC results best viewed via link to PDF [facility] Department of Pathology [address] [place] [id number] Note to Patients: This report may contain [...] Final Report Patient Name: YULIET SARMIENTO Address: [address] [place] [address] Gender: M : 1960 (Age: 64) Service: Surgery Location: [facility] Hospital #: [id number] Patient Type: [facility] OP in bed Taken: 01/28/2025 Received: 01/29/2025 [...] is bisected revealing no subchondral gross lesions. Foreign Student Adviser Teacher sections are submitted in one cassette after decalcification. Ragini Perez R.N., P.A./Pam Collins M.D. REPORT IMAGES AND SCANNED DOCUMENTS, IF INCLUDED, ONLY VIEWABLE IN PDF VERSION OF REPORT The performance characteristics of some immunohistochemical stains, fluorescence in-situ hybridization tests and immunophenotyping by flow cytometry cited in this report (if any) were determined by the Surgical Pathology Department at [facility] as part of an ongoing software quality test engineer program and in compliance with federally mandated [...] characteristics determined by the Surgical Pathology Department [facility]. It has not been cleared or approved by the U. S. Food and Drug Administration. Note for decalcified specimens: This assay has not been validated on decalcified tissues. Results should be interpreted with caution given the possibility of false negativity on decalcified specimens us Alireza Modi MD LAB PATHOLOGY ORDERABLES Final Result [facility]OLOGY [facility] ([place]) [address] [place] [address] from Last 3 Months Insurance MEDICARE MEDICARE [facility] Advance Directives For more information, please contact: [phone] * Full Code (Latest Code Status on File) Date Activated Date Inactivated Comments 01/28/2025 3:44 PM 01/29/2025 4:06 PM * Full Code Date Activated Date Inactivated Comments 01/09/2024 2:48 PM 01/10/2024 4:25 PM Care Teams Independent Agent Music Education Relationship Specialty Start Date End Date Rebeca Cortes NP [address] [place] [address] PCP - General Nurse Practitioner 08/28/20 Alireza Modi MD [address] [place] [address] DR TRAMMELL [address] [place] [id number] Surgeon Orthopedic Surgery 01/10/24 Pedro Rosado OT Occupational Therapist Occupational Therapy 01/24/25
--- OUTSIDE RECORDS SUMMARY | 2025-04-29 08:02 | XMS_ITS | Clinical Summary ---
Author Organization [facility] Address [address] [place] [address] Phone Care Team Providers Care 4Th Grade Math Teacher Name Role Phone Rebeca oCrtes BAND TEACHER, PRACTICE COORDINATOR Primary Care Provi harinder Hernán Allison BAND TEACHER, PRACTICE COORDINATOR Unavailable Allergies No known active allergies Medications albuterol [...] Comments Blood Pressure 171/91 01/07/2025 1:46 PM RN OPERATING ROOM Pulse 91 01/07/2025 1:46 PM RN OPERATING ROOM Temperature - - Respiratory Rate 16 01/07/2025 1:46 PM RN OPERATING ROOM Oxygen Saturation 96% 06/26/2024 10:45 AM CDT Inhaled Oxygen Concentration - - Weight 98.9 kg (218 lb) 01/07/2025 1:46 PM RN OPERATING ROOM Height 180.3 cm (5' 11) 01/07/2025 1:46 PM RN OPERATING ROOM Body Mass Index 30.4 01/07/2025 1:46 PM RN OPERATING ROOM Plan of Treatment Health Maintenance Due Date [...] 2019 Influenza Immunization (#1) 2024 SARS-COV-2 Immunization ( - 2023- season) 2024 AAA Screening Ultrasound 2024 Hepatitis B Immunization Aged Out No longer eligible based on patient's age to complete this topic Meningococcal Immunization (ACWY) Aged Out No longer eligible based on patient's age to complete this topic Rotavirus Immunization Aged Out No lo nger eligible based on patient's age to complete this topic Insurance MEDICARE [place]ICAID [place] Care Teams 4Th Grade Math Teacher Relationship Specialty Start Date End Date Rebeca Cortes APRN, PRACTICE COORDINATOR [address] [place] [address] PCP - General Advanced Practice Nurse 05/07/24 Hernán Allison APRN, PRACTICE COORDINATOR [address] [place] [address] Nurse Practitioner Advanced Practice Nurse 05/07/24
[2025-04-29 08:33] LABS: Cholesterol 114 mg/dL (0-200); HDL Direct 70 mg/dL; LDL Cholesterol Calculated 33 mg/dL (<130); Triglycerides 53 mg/dL (<150)
== END 2025-04-29 07:58 | disposition home or self-care (01) ==
PROVIDERS: PCP Nurse Practitioner Family; Visit Provider Internal Medicine Cardiovascular Disease
DX: E78.5 Hyperlipidemia, unspecified (principal)
CPT/HCPCS: 36415; 80061

== ENCOUNTER 2025-05-06 10:49 | Outpatient (CLI) | payer MEDICARE, MEDICAID, SELFPAY ==
--- NOTE | ~2025-05-06 | XR_ITS ---
XR toe 1st RT min 2V Ordering provider: Rebeca Cortes NP History: . Pain X 2 weeks, Diabetic . Comparison: None. FINDINGS: BONES: No acute fracture or dislocation. Small bony fragment is seen adjacent to the cuneiform bone. JOINT SPACES: Osteoarthritic changes of the naviculocuneiform joint. SOFT TISSUES: Soft tissue swelling is seen medially in the area of the distal talus and in the area o f the navicular bone. Cellulitis is not excluded. IMPRESSION: No definite acute osseous abnormality. Small bony fragment adjacent to the medial cuneiform bone. Clinical correlation advised. Highly suggestive cellulitis seen medially in the tarsal bones area. Reviewed, dictated and finalized at location A.
[2025-05-06 11:15] LABS: Basophils Absolute Auto 0.02 K/mm3 (0.00-0.10); Basophils Percent Auto 0.4 % (0.0-1.0); Eosinophils Absolute Auto 0.13 K/mm3 (0.02-0.50); Eosinophils Percent Auto 2.3 % (1.0-6.0); Hemoglobin 14.3 g/dL (12.4-15.3); Immature Granulocyte Absolute 0.01 K/mm3 (0.00-0.00); Immature Granulocyte Percent A 0.2 % (0.0-0.0); Lymphocytes Percent Auto 26.4 % (18.0-42.0); Mean Corpuscular HGB Conc 33.3 g/dL (32-36); Mean Corpuscular Hemoglobin 31.4 pg (27.0-31.0); Mean Corpuscular Volume 94.5 fL (78.0-102.0); Mean Platelet Volume 9.9 fl (8.7-11.0); Monocytes Absolute Auto 0.28 K/mm3 (0.10-0.90); Monocytes Percent Auto 4.9 % (2.0-11.0); Neutrophils Absolute Auto 3.74 K/mm3 (1.70-7.20); Neutrophils Percent Auto 65.8 % (50.0-70.0); Platelet Count Result 207 K/mm3 (150-420); Red Blood Count 4.55 M/mm3 (4.70-6.10); Red Cell Distribution Width 12.7 % (11.6-14.4); White Blood Count 5.7 K/mm3 (4.8-10.8)
[2025-05-06 11:35] LABS: Hemoglobin A1C 6.3 % (<5.7)
[2025-05-06 11:46] LABS: Alanine Aminotransferase 14 U/L (6-50); Albumin Level 4.2 g/dL (3.5-5.1); Alkaline Phosphatase 63 U/L (38-126); Anion Gap 6 mmol/L (4-12); Aspartate Amino Transferase 16 U/L (17-59); Bilirubin,Total 0.8 mg/dL (0.2-1.3); Blood Urea Nitrogen 26 mg/dL (9-20); CRP < 0.5 mg/dL (<1.0); Calcium 9.3 mg/dL (8.4-10.2); Carbon Dioxide 28 mmol/L (22-30); Chloride 102 mmol/L (98-107); Estimated Glomerular Filt Rate > 60; Glucose 157 mg/dL (65-110); Osmolality Calculated 289 mOsm/kg (285-295); Potassium 4.7 mmol/L (3.4-5.0); Sodium 136 mmol/L (137-145); Total Protein 6.8 g/dL (6.3-8.2); Uric Acid 5.9 mg/dL (3.5-8.5)
--- OUTSIDE RECORDS SUMMARY | 2025-05-06 12:10 | XMS_ITS | Clinical Summary ---
Author Organization [facility] Address [address] [place] [address] Phone Care Team Providers Care Seasonal Sales Associate Name Role Phone Rebeca Cortes COMPUTER EQUIPMENT REPAIRER, TRAVEL INFORMATION CENTER SUPERVISOR Primary Care Provi harinder Hernán Allison COMPUTER EQUIPMENT REPAIRER, TRAVEL INFORMATION CENTER SUPERVISOR Unavailable Allergies No known active allergies Medications [...] Comments Blood Pressure 171/91 01/07/2025 1:46 PM CORPORATE FITNESS PROGRAM COORDINATOR Pulse 91 01/07/2025 1:46 PM CORPORATE FITNESS PROGRAM COORDINATOR Temperature - - Respiratory Rate 16 01/07/2025 1:46 PM CORPORATE FITNESS PROGRAM COORDINATOR Oxygen Saturation 96% 06/26/2024 10:45 AM CDT Inhaled Oxygen Concentration - - Weight 98.9 kg (218 lb) 01/07/2025 1:46 PM CORPORATE FITNESS PROGRAM COORDINATOR Height 180.3 cm (5' 11) 01/07/2025 1:46 PM CORPORATE FITNESS PROGRAM COORDINATOR Body Mass Index 30.4 01/07/2025 1:46 PM CORPORATE FITNESS PROGRAM COORDINATOR Plan of Treatment Health Maintenance Due Date [...] - Risk 60-74 years 1-dose series) 2019 SARS-COV-2 Immunization ( season) 2024 AAA Screening Ultrasound 2024 Influenza Immunization (Seas on Ended) 2025 Hepatitis B Immunization Aged Out No longer eligible based on patient's age to complete this topic Human Papillomavirus (HPV) Immunization Aged Out No longer eligible b ased on patient's age to complete this topic Meningococcal Immunization (ACWY) Aged Out No longer eligible based on patient's age to complete this topic Rotavirus Immunization Aged Out No lo nger eligible based on patient's age to complete this topic Insurance MEDICARE [place]ICAID [place] Care Teams Seasonal Sales Associate Relationship Specialty Start Date End Date Rebeca Cortes APRN, TRAVEL INFORMATION CENTER SUPERVISOR [address] [place] [address] PCP - General Advanced Practice Nurse 05/07/24 Hernán Allison APRN, TRAVEL INFORMATION CENTER SUPERVISOR [address] [place] [address] Nurse Practitioner Advanced Practice Nurse 05/07/24
--- OUTSIDE RECORDS SUMMARY | 2025-05-06 12:10 | XMS_ITS | Referral Summary ---
Author Organization [facility] Medical Office Building B Address [address] [place] [address] Care Team Providers Care Wood Machinist Apprentice Name Role Phone Rebeca Cortes NP Primary Care Provider [phone] Ailreza Modi MD Unavailable [phone] Pedro Rosado OT Unavailable Unavailable Encounters Date Type Department Care Team Description 05/02/[address] [facility] Orthopedics and Sports Medicine [address] [place] [address] [address], [place] [phone] Alireza Modi MD 03/26/2025 7:44 AM CDT - 03/26/2025 11:59 PM CDT Hospital Encounter [facility] Orthopedics and Sports Medicine [address] [place] [address] [address], [place] [phone] Discharge Disposition: Discharge to home or self care 03/26/2025 9:15 AM CDT Office Visit [facility] Orthopedics and Sports Medicine [address] [place] [address] [address], [place] [phone] Arabella Benjamin PA Aftercare following left hip joint replacement surgery (Primary Dx) 02/27/2025 Orders Only [facility] Orth[facility]ics and Sports Medicine [address] [place] [address] [address], [place] [phone] Arabella Benjamin PA S/P total left hip arthroplasty (Primary Dx); Swelling of limb 02/27/2025 Telephone [facility]ics [facility] Sports Medicine [address] [place] [address] [address] [place] [address] Arabella Benjamin PA 02/20/2025 Telephone [facility] Medicine [address] [place] [address] [address] [place] [address] Arabella Benjamin PA 02/19/2025 11:45 AM CDT Telemedicine [facility] Medicine [address] [place] [address] [address] [place] [address] Arabella Benjamin PA Aftercare following left hip joint replacement surgery (Primary Dx) 02/08/2025 Telephone [facility] and Sports [address], [place] [address] Lety Olivo NP 02/08/2025 Telephone [facility]ics [facility] Medicine [address] [place] [address] [address] [place] [phone] Alireza Modi MD from Last 3 Months Allergies No [...] 36.2 C (97.2 F) 01/29/2025 7:08 AM CHISEL TRIMMER Respiratory Rate 16 01/29/2025 7:08 AM CHISEL TRIMMER Oxygen Saturation 93% 01/29/2025 7:08 AM CHISEL TRIMMER Inhaled Oxygen Concentration - - Weight 93 kg (205 lb) 03/26/2025 9:22 AM CDT Height 177.8 cm (5' 10) 03/26/2025 9:22 AM CDT Body Mass Index 29.41 03/26/2025 9:22 AM CDT Plan of Treatment Not on file Medical Devices Implanted Type Area Addiction Treatment Counselor Device Identifier Shelf Expiration Date Model / Serial / Lot [employer] [place] 60mm Sector Hip Shell Acetabular Gription Sterile Latex Free [id number] - [id number] Implanted:Qty: 1 on 01/09/2024 by Alireza Modi MD at [facility] Right: Hip [employer] 09/27/2033 [id number] / / [id number] [employer] [place] 60mm 36mm Hip Neutral Liner Acetabular Altrx Sterile Latex Free [id number] - [id number] Implanted:Qty: 1 on 01/09/2024 by Alireza Modi MD at [facility] Right: Hip [employer] 08/27/2028 [id number] / / [id number] [employer] [place] 6.5mm 35mm Acetabular Cancellous Screw Bone Sterile 1217-35-500 - [id number] Implanted:Qty: 1 on 01/09/2024 by Alireza Modi MD at [facility] Right: Hip [employer] 09/27/2033 1217-35-500 / / [id number] [employer] [place] 6.5mm 35mm Acetabular Cancellous Screw Bone Sterile 1217-35-500 - [id number] Implanted:Qty: 1 on 01/09/2024 by Alireza Modi MD at [facility] Right: Hip [employer] 07/28/2033 1217-35-500 / / [id number] [employer] Articul/Law 36mm Cementless Hip +8.5mm 11/10 Taper Head Femoral Latex Free 1365-36-330 - [id number] Implanted:Qty: 1 on 01/09/2024 by Alireza Modi MD at [facility] Right: Hip [employer] 08/27/2028 1365-36-330 / / [id number] [employer] Stem Femoral Hip Porous Proximal Collared Actis Titanium High Offset Size 12 [id number] - Sna - [id number] Implanted:Qty: 1 on 01/09/2024 by Alireza Modi MD at [facility] Right: Hip [employer] [id number] 05/27/2026 [id number] / NA / [id number] [employer] [place] 6.5mm 40mm Acetabular Cancellous Screw Bone Sterile 237366022 - [id number] Implanted:Qty: 1 on 01/28/2025 by Alireza Modi MD at [facility] Left: Hip [employer] [id number] 04/27/2033 [id number] / / [id number] [employer] [place] 6.5mm 30mm Acetabular Cancellous Screw Bone Revision 1217-30-500 - [id number] Implanted:Qty: 1 on 01/28/2025 by Alireza Modi MD at [facility] Left: Hip [employer] [id number] 04/27/2033 1217-30-500 / / [id number] [employer] Stem Femoral Hip Porous Proximal Collared Actis Titanium High Offset Size 12 460561798 - [id number] Implanted:Qty: 1 on 01/28/2025 by Alireza Modi MD at [facility] Left: Hip [employer] [id number] 08/27/2033 [id number] / / [id number] [employer] Articul/Law 36mm Cementless Hip +8.5mm 14 Taper Head Femoral Latex Free 1365-36-330 - [id number] Implanted:Qty: 1 on 01/28/2025 by Alireza Modi MD at [facility] Left: Hip [employer] [id number] 06/27/2029 1365-36-330 / / [id number] [employer] [place] 60mm Sector Hip Shell Acetabular Gription Sterile Latex Free 084270377 - [id number] Implanted:Qty: 1 on 01/28/2025 by Alireza Modi MD at [facility] Left: Hip [employer] [id number] 10/27/2034 170217024 / / [id number] [employer] [place] 60mm 36mm Hip Neutral Liner Acetabular Altrx Sterile Latex Free 621782209 - [id number] Implanted:Qty: 1 on 01/28/2025 by Alireza Modi MD at [facility] Left: Hip [employer] [id number] 11/27/2029 [id number] / / [id number] [employer] [place] 6.5mm 40mm Acetabular Cancellous Screw Bone Sterile 724707113 - [id number] Implanted:Qty: 1 on 01/28/2025 by Alireza Modi MD at [facility] Left: Hip [employer] [id number] 04/27/2034 166342519 / / [id number] Procedures Procedure Name Priority Date/Time Associated Diagnosis Comments XR HIP LEFT 2 OR 3 VIEWS Schedule Routine, Read Routine (OP Routine) 03/26/2025 9:20 AM CDT Aftercare following left hip joint replacement surgery from Last 3 Months Results * XR [...] BLANCO IMG XR PROCEDURES Fin al Result from Last 3 Months Insurance MEDICARE [facility] Advance Directives For more information, please contact: [phone] * Full Code (Latest Code Status on File) Date Activated Date Inactivated Comments 01/28/2025 3:44 PM 01/29/2025 4:06 PM * Full Code Date Activated Date Inactivated Comments 01/09/2024 2:48 PM 01/10/2024 4:25 PM Care Teams Wood Machinist Apprentice Relationship Specialty Start Date End Date Rebeca Cortes NP [address] [place] [address] PCP - General Nurse Practitioner 08/28/20 Alireza Modi MD [address] [place] [address] DR TRAMMELL [address] [place] [id number] Surgeon Orthopedic Surgery 01/10/24 Pedro Rosado OT Occupational Therapist Occupational Therapy 01/24/25
--- OUTSIDE RECORDS SUMMARY | 2025-05-06 12:10 | XMS_ITS | Clinical Summary ---
Author Organization [facility] Medical Office Building B Address [address] [place] [address] Care Team Providers Care Liver Trimmer Name Role Phone Rebeca Cortes NP Primary Care Provider [phone] Alireza Modi MD Unavailable [phone] Pedro Rosado OT Unavailable Unavailable Allergies No [...] Type Department Care Team Description 05/02/2025 Telephone [facility] Medical [facility] Orthopedics and Sports Medicine [address] [place] [phone] Alireza Modi MD 03/26/2025 9:15 AM CDT Office Visit [facility] Medical [facility] Orthopedics and Sports Medicine [address] [place] [phone] Arabella Benjamin PA Aftercare following left hip joint replacement surgery (Primary Dx) 03/26/2025 7:44 AM CDT - 03/26/2025 11:59 PM CDT Hospital Encounter [facility] Medical [facility] Orthopedics and Sports Medicine [address] [place] [phone] Discharge Disposition: Discharge to home or self care 02/27/2025 Orders Only [facility] Orthopedics and Sports Medicine [address] [place] [phone] Arabella Benjamin PA S/P total left hip arthroplasty (Primary Dx); Swelling of limb 02/27/2025 Telephone [facility] Orthopedics and Sports Medicine [address] [place] [address] [address] [place] [phone] Arabella Benjamin PA 02/20/2025 Telephone [facility] Orthopedics and Sports Medicine [address] [place] [address] [address] [place] [phone] Arabella Benjamin PA 02/19/2025 11:45 AM CDT Telemedicine [facility] Orthopedics and Sports Medicine [address] [place] [address] [address] [place] [address] Arabella Benjamin PA Aftercare following left hip joint replacement surgery (Primary Dx) 02/08/2025 Telephone [facility] Orthopedics and Sports Medicine [address] [place] [address] [address] [place] [phone] Lety Olivo NP 02/08/2025 Telephone [facility] Orthopedics and Sports Medicine [address] [place] [address] [address] [place] [phone] Alireza Modi MD from Last 3 Months Surgical History Surgery [...] 36.2 C (97.2 F) 01/29/2025 7:08 AM SILO TENDER Respiratory Rate 16 01/29/2025 7:08 AM SILO TENDER Oxygen Saturation 93% 01/29/2025 7:08 AM SILO TENDER Inhaled Oxygen Concentration - - Weight [...] 01/17/20 25 Medical Devices Implanted Type Area Receiving Operator Device Identifier Shelf Expiration Date Model / Serial / Lot [employer] [place] 60mm Sector Hip Shell Acetabular Gription Sterile Latex Free [id number] - [id number] Implanted:Qty: 1 on 01/09/2024 by Alireza Modi MD at [facility] Right: Hip [employer] 09/27/2033 [id number] / / [id number] [employer] [place] 60mm 36mm Hip Neutral Liner Acetabular Altrx Sterile Latex Free 962759561 - [id number] Implanted:Qty: 1 on 01/09/2024 by Alireza Modi MD at [facility] Right: Hip [employer] 08/27/2028 [id number] / / [id number] [employer] [place] 6.5mm 35mm Acetabular Cancellous Screw Bone Sterile 1217-35-500 - [id number] Implanted:Qty: 1 on 01/09/2024 by Alireza Modi MD at [facility] Right: Hip [employer] 09/27/2033 1217-35-500 / / [id number] [employer] [place] 6.5mm 35mm Acetabular Cancellous Screw Bone Sterile 1217-35-500 - [id number] Implanted:Qty: 1 on 01/09/2024 by Alireza Modi MD at [facility] Right: Hip [employer] 07/28/2033 1217-35-500 / / [id number] [employer] Articul/Law 36mm Cementless Hip +8.5mm / Taper Head Femoral Latex Free 1365-36-330 - [id number] Implanted:Qty: 1 on 01/09/2024 by Alireza Modi MD at [facility] Right: Hip [employer] 08/27/2028 1365-36-330 / / [id number] [employer] Stem Femoral Hip Porous Proximal Collared Actis Titanium High Offset Size 12 317022076 - Sna - [id number] Implanted:Qty: 1 on 01/09/2024 by Alireza Modi MD at [facility] Right: Hip [employer] [id number] 05/27/2026 [id number] / NA / [id number] [employer] [place] 6.5mm 40mm Acetabular Cancellous Screw Bone Sterile 573066655 - [id number] Implanted:Qty: 1 on 01/28/2025 by Alireza Modi MD at [facility] Left: Hip [employer] [id number] 04/27/2033 507406348 / / [id number] [employer] [place] 6.5mm 30mm Acetabular Cancellous Screw Bone Revision - [id number] Implanted:Qty: 1 on 01/28/2025 by Alireza Modi MD at [facility] Left: Hip [employer] [id number] 04/27/2033 / / [id number] [employer] Stem Femoral Hip Porous Proximal Collared Actis Titanium High Offset Size 12 046173417 - [id number] Implanted:Qty: 1 on 01/28/2025 by Alireza Modi MD at [facility] Left: Hip [employer] [id number] 08/27/2033 [id number] / / [id number] [employer] Articul/Law 36mm Cementless Hip +8.5mm 12/14 Taper Head Femoral Latex Free 1368-36330 - [id number] Implanted:Qty: 1 on 01/28/2025 by Alireza Modi MD at [facility] Left: Hip [employer] [id number] 06/27/2029 1365-36330 / / [id number] [employer] [place] 60mm Sector Hip Shell Acetabular Gription Sterile Latex Free 093529928 - [id number] Implanted:Qty: 1 on 01/28/2025 by Alireza Modi MD at [facility] Left: Hip [employer] [id number] 10/27/2034 [id number] / / [id number] [employer] [place] 60mm 36mm Hip Neutral Liner Acetabular Altrx Sterile Latex Free 950117872 - [id number] Implanted:Qty: 1 on 01/28/2025 by Alireza Modi MD at [facility] Left: Hip [employer] [id number] 11/27/2029 [id number] / / [id number] [employer] [place] 6.5mm 40mm Acetabular Cancellous Screw Bone Sterile 133580365 - [id number] Implanted:Qty: 1 on 01/28/2025 by Alireza Modi MD at [facility] Left: Hip [employer] [id number] 04/27/2034 [id number] / / [id number] Procedures Procedure Name Priority Date/Time Associated Diagnosis [...] from Last 3 Months Insurance MEDICARE MEDICARE [place] Advance Directives For more information, please contact: [phone] * Full Code (Latest Code Status on File) Date Activated Date Inactivated Comments 01/28/2025 3:44 PM 01/29/2025 4:06 PM * Full Code Date Activated Date Inactivated Comments 01/09/2024 2:48 PM 01/10/2024 4:25 PM Care Teams Liver Trimmer Relationship Specialty Start Date End Date Rebeca Cortes NP [address] [place] [address] PCP - General Nurse Practitioner 08/28/20 Alireza Modi MD [address] [place] [address] [place] [address] Surgeon Orthopedic Surgery 01/10/24 Pedro Rosado OT Occupational Therapist Occupational Therapy 01/24/25
== END 2025-05-06 10:50 | disposition home or self-care (01) ==
LOC: CHSLAB 10:51
PROVIDERS: PCP Nurse Practitioner Family; Visit Provider Nurse Practitioner Family
DX: M79.674 Pain in right toe(s) (principal); E11.9 Type 2 diabetes mellitus without complications
CPT/HCPCS: 36415; 73660; 80053; 83036; 84550; 85025; 86140

== ENCOUNTER 2025-09-20 07:21 | Outpatient (CLI) | payer MEDICARE, MEDICAID, SELFPAY ==
--- NOTE | ~2025-09-20 | US_ITS ---
EXAMINATION: US aorta [facility] scrn, 09/20/2025 7:40 CDT HISTORY: Z00.00 - Encounter for general adult medical examination ... Comparison: None Technique: Rosas-scale and color Doppler images were obtained. Findings: There is no aneurysmal dilatation of the aorta or the proximal common iliac arteries identified. No significant plaque demonstrated. IMPRESSION: No aneurysm identified Reviewed, dictated and finalized at location P. IMPRESSION: No aneurysm identified
--- NOTE | ~2025-09-20 | CT_ITS ---
Exam: CT chest without contrast Clinical History: [No history of nicotine dependence ] Comparison: [ CTA chest 07/16/2023; CT lung Screening chest 06/20/2023] Technique: Multiple axial CT images of the chest without with IV contrast. Sagittal and coronal reformatted images were obtained. FINDINGS: Lungs and pleura: [ Tracheobronchial tree is patent. No pneumothorax. No pleural effusion. Mild centrilobular emphysema in both lungs. There is a 4 mm pulmonary nodule in the left upper lobe. There is a 2 mm pulmonary nodule in the left lung apex. There is a 3 mm pulmonary nodule along the right major fissure. There are a few tiny reticular nodular opacities in the right middle lobe, right lower lobe and left lower lobe. Mediastinum and pulmonary eliza: [ No mass or adenopathy.] Axillary/intramammary and supraclavicular: [ No mass or adenopathy.] Heart and great vessels: [ Normal heart size.[ [ No pericardial effusion.] [ No aneurysm.] Mild atherosclerotic disease in the thoracic aorta. There are a few coronary artery calcifications. Chest Wall: [ Unremarkable.] Upper Abdomen: Stable left adrenal adenoma. Osseous structures: [ No acute fracture lesion.] [ Multilevel degenerative change in the visualized spine.] Old rib fractures. Additional findings: [ None of significance.] IMPRESSION: 1. There is a 4 mm pulmonary nodule in the left upper lobe. There is a 2 mm pulmonary nodule in the left lung apex. There is a 3 mm pulmonary nodule along the right major fissure. A follow-up chest CT in 3 months is recommended. 2. There are a few tiny reticular nodular opacities in the right middle lobe, right lower lobe and left lower lobe. The findings may be secondary to an inflammatory or infectious process. A follow-up chest CT in 3 months is recommended. 3. Stable mild centrilobular edema. Lung-RADS category 3: Probably benign. Further evaluation is recommended with noncontrast low-dose chest CT in 3 months. Reviewed, dictated and finalized at location Q. IMPRESSION: 1. There is a 4 mm pulmonary nodule in the left upper lobe. There is a 2 mm pul monary nodule in the left lung apex. There is a 3 mm pulmonary nodule along the right major fissure. A follow-up chest CT in 3 months is recommended. 2. There are a few tiny reticular nodular opacities in the right middle lobe, r ight lower lobe and left lower lobe. The findings may be secondary to an inflam matory or infectious process. A follow-up chest CT in 3 months is recommended. 3. Stable mild centrilobular edema. Lung-RADS category 3: Probably benign. Further evaluation is recommended with n oncontrast low-dose chest CT in 3 months.
[2025-09-20 07:37] LABS: Hematocrit 42.8 % (37.0-46.0); Hemoglobin 14.7 g/dL (12.4-15.3); Immature Granulocyte Percent A 0.4 % (0.0-0.0); Lymphocytes Absolute Auto 1.54 K/mm3 (1.10-4.50); Mean Corpuscular HGB Conc 34.3 g/dL (32-36); Mean Corpuscular Hemoglobin 32.7 pg (27.0-31.0); Mean Corpuscular Volume 95.3 fL (78.0-102.0); Nucleated Red Blood Cells Absolute Auto 0.00 K/mm3 (0.00-0.00); Nucleated Red Blood Cells Perc 0.0 % (0-0.0); Platelet Count Result 254 K/mm3 (150-420); Red Blood Count 4.49 M/mm3 (4.70-6.10); White Blood Count 5.6 K/mm3 (4.8-10.8)
[2025-09-20 08:42] LABS: Alanine Aminotransferase 13 U/L (6-50); Albumin Level 4.6 g/dL (3.5-5.1); Alkaline Phosphatase 80 U/L (38-126); Anion Gap 9 mmol/L (4-12); Aspartate Amino Transferase 17 U/L (17-59); Bilirubin,Total 1.1 mg/dL (0.2-1.3); Blood Urea Nitrogen 13 mg/dL (9-20); Calcium 9.9 mg/dL (8.4-10.2); Carbon Dioxide 31 mmol/L (22-30); Chloride 96 mmol/L (98-107); Cholesterol 109 mg/dL (0-200); Estimated Glomerular Filt Rate > 60; Glucose 134 mg/dL (65-110); HDL Direct 84 mg/dL; Osmolality Calculated 284 mOsm/kg (285-295); Potassium 5.5 mmol/L (3.4-5.0); Sodium 136 mmol/L (137-145); Total Protein 8.2 g/dL (6.3-8.2); Triglycerides 39 mg/dL (<150)
[2025-09-20 08:57] LABS: MALB Creatinine Ratio 5.1 mg/g (0-30)
[2025-09-20 09:10] LABS: Prostate Specific Antigen 0.5 ng/mL (< OR = 4.0)
== END 2025-09-20 07:22 | disposition home or self-care (01) ==
LOC: CHSIMG 07:22
PROVIDERS: PCP Nurse Practitioner Family; Visit Provider Nurse Practitioner Family
DX: Z12.5 Encounter for screening for malignant neoplasm of prostate (principal); I10 Essential (primary) hypertension; E11.9 Type 2 diabetes mellitus without complications; Z13.6 Encounter for screening for cardiovascular disorders; E78.5 Hyperlipidemia, unspecified; Z87.891 Personal history of nicotine dependence; Z12.2 Encounter for screening for malignant neoplasm of respiratory organs; M79.89 Other specified soft tissue disorders; R91.8 Other nonspecific abnormal finding of lung field
CPT/HCPCS: 36415; 71271; 76706; 80053; 80061; 82043; 84153; 85025; 86803; G0103

== ENCOUNTER 2025-09-30 09:46 | Outpatient (CLI) | payer MEDICARE, MEDICAID, SELFPAY ==
[2025-09-30 10:37] LABS: Alanine Aminotransferase 14 U/L (6-50); Albumin Level 4.9 g/dL (3.5-5.1); Alkaline Phosphatase 76 U/L (38-126); Anion Gap 9 mmol/L (4-12); Aspartate Amino Transferase 17 U/L (17-59); Bilirubin,Total 1.8 mg/dL (0.2-1.3); Blood Urea Nitrogen 11 mg/dL (9-20); Calcium 10.3 mg/dL (8.4-10.2); Carbon Dioxide 30 mmol/L (22-30); Chloride 98 mmol/L (98-107); Estimated Glomerular Filt Rate > 60; Glucose 138 mg/dL (65-110); Osmolality Calculated 285 mOsm/kg (285-295); Potassium 4.6 mmol/L (3.4-5.0); Sodium 137 mmol/L (137-145); Total Protein 7.6 g/dL (6.3-8.2)
== END 2025-09-30 09:47 | disposition home or self-care (01) ==
LOC: CHSLAB 09:47
PROVIDERS: PCP Nurse Practitioner Family; Visit Provider Nurse Practitioner Family
DX: E87.5 Hyperkalemia (principal)
CPT/HCPCS: 36415; 80053